=== PATIENT | male | born 1955 | race Caucasian/White ===

== ENCOUNTER → 2018-10-05 08:18 | Outpatient (CLI) | payer MEDICARE, SELFPAY ==
--- NOTE | 2018-10-05 08:30 | US_ITS ---
US aorta HISTORY: Screening for abdominal aortic aneurysm ITS.REASON: AAA COMPARISON: FINDINGS: There is no evidence of aortic aneurysm. Mid abdominal aorta measures 16 mm in AP dimension. Incidental note is made of severe left hydronephrosis. Also noted is a 4 cm cyst along the lower pole the right kidney. IMPRESSION: 1. No evidence of aortic aneurysm. 2. Severe left hydronephrosis
== END ==
PROVIDERS: PCP Emergency Medicine; Visit Provider Emergency Medicine
DX: Z13.6 Encounter for screening for cardiovascular disorders (principal); Z87.891 Personal history of nicotine dependence
CPT/HCPCS: 76770

== ENCOUNTER 2019-09-22 15:56 | Observation (INO) ==
[2019-09-22 17:48] LABS: Calcium 9.1 mg/dL (8.5-10.1); Phosphorous 3.7 mg/dL (2.4-4.9)
[2019-09-22 17:49] LABS: Anion Gap 19.4 mEq/L (5-15); Calcium 9.1 mg/dL (8.5-10.1)
[2019-09-22 17:50] LABS: Amylase 31 U/L (25-115)
[2019-09-22 17:54] LABS: Acetone, Serum (Rapid) None Detected (None Detect)
[2019-09-22 18:16] LABS: Microscopic, Urine URINE MICROSCOPIC (MICROSCOPIC)
[2019-09-22 18:19] LABS: Basophils % 0.4 % (0.1-2.0); Eosinophils # 0.1 K/mm3 (0.0-0.4); Eosinophils % 1.2 % (0.1-12.0); Hematocrit 54.1 % (42.0-52.0); Hemoglobin 17.7 g/dL (14.1-18.0); Lymphocytes # 1.9 K/mm3 (0.7-4.5); Lymphocytes % 19.4 % (10-50); Mean Corpuscular HGB Conc 32.7 g/dL (31.8-35.4); Mean Corpuscular Volume 91.4 fl (80-94); Mean Platelet Volume 8.7 fl (7.4-10.4); Monocytes # 0.5 K/mm3 (0.1-1.0); Monocytes % 5.3 % (1.7-9.3); Neutrophils # 7.2 K/mm3 (1.8-7.8); Neutrophils % 73.8 % (37.0-80.0); Platelet Count 265 K/mm3 (142-424); Red Blood Count 5.92 M/mm3 (4.60-6.20); Red Cell Distribution Width 12.5 % (11.5-17.5); White Blood Count 9.8 K/mm3 (4.8-10.8)
[2019-09-22 18:21] LABS: Appearance,Urine CLEAR (Clear); Bilirubin,Urine Negative (Negative); Blood, Urine Negative (Negative); Color,Urine YELLOW (Yellow); Glucose,Urine (UA) 3+ (Negative); Ketones,Urine 1+ (Negative); Leukocyte Esterase,Urine Negative (Negative); Protein,Urine Negative (Negative); Urobilinogen,Urine 0.2 EU/dl (0.2)
[2019-09-22 18:26] LABS: Bacteria,Urine Trace /lpf; Squamous Epithelial Cell,Urine Occasional #/hpf (0-5)
--- NOTE | 2019-09-22 20:49 | History & Physical Report ---
*Admission Date: 09/22/19 <Court Childress 09/22/19 21:01> *Chief complaint: weakness, polydipsia, loose stools <Court Childress 09/22/19 21:01> *History of present illness: Mr. Patel is a 64-year-old male with a history of hypertension, hyperlipidemia, type 2 diabetes, depression, and kidney stones. He states he was started on metformin in the past but stopped it due to loose stools with mucus present. Over the past few months, he has been very fatigued. He states his legs have felt weak almost to the point of collapse. He has lost weight and has had dry mouth and polydipsia. He states even after stopping the metformin, he continued with loose stools with a large amount of mucus. He did have some bleeding after wiping excessively. Over the past week he has also had blurry vision off and on. He was seen in the office of [facility] to be evaluated. His heart rate was 118, he was hypotensive, and his blood sugar would not even read on the glucometer. His A1c was checked and was 12.2. He was admitted for further evaluation and treatment. <Court Childress 09/22/19 21:01> [facility] History I have reviewed the patient's past medical history: Yes <Court Childress 09/22/19 21:> Medical History: Reports:: Depression, Diabetes Mellitus Type 2, Hyperlipidemia, Hypertension, Kidney Stones <Court Childress 09/22/19 21:> *Have you ever received a pneumonia vaccine?: No <Court Childress 09/22/19 21:01> *Have you received a flu vaccine this season?: No <Court Childress 09/22/19 21:01> Other Medical History: Reports: Anemia, Glaucoma <Court Childress 09/22/19 21:01> Comment:: head injury <Court Childress 09/22/19 21:01> Other Surgeries: Yes: Appendectomy, Hernia Repair, Other (Back surgery, left 5th digit stitched back together) <Court Childress 09/22/19 21:01> - *Social History Smoking Status: Former smoker <Court Childress 09/22/19 21:01> Alcohol Intake: never <Court Childress 09/22/19 21:01> *Occupational Status:: disabled <Court Childress 09/22/19 21:01> Housing: house <Court Childress 09/22/19 21:01> Household Members: spouse <Court Childress 09/22/19 21:01> *Travel in the last 8 weeks: None <Court Childress 09/22/19 21:01> Family Hx:: Cancer, Coronary Artery Disease, Heart Attack, Hypertension <Court Childress 09/22/19 21:01> Review of Systems - Constitutional Reports body ache(s), Reports weakness <Court Childress 09/22/19 21:01> - Eyes Reports blurry vision, Denies double vision <Court Childress 09/22/19 21:> - ENT Reports dry mouth, Denies nasal congestion, Denies sore throat <Court Childress 09/22/19 21:01> - *Cardiovascular Denies chest pain, Denies leg swelling, Denies rapid, pounding, or irregular heartbeat <Court Childress 09/22/19 21:01> - *Respiratory Reports cough, Reports shortness of breath <Court Childress 09/22/19 21:01> - *Gastrointestinal Reports loose stools, Denies abdominal pain, Denies nausea, Denies vomiting <Court Childress 09/22/19 21:01> - *Genitourinary Reports urinary frequency <Court Childress 09/22/19 21:01> - *Musculoskeletal Reports muscle cramps, Reports body aches, Denies joint pain <Corut Childress 09/22/19 21:01> - *Neurologic Reports headache(s), Reports tingling/numbness/burning sensations, Reports dizziness, Reports weakness <Court Childress 09/22/19 21:01> - Endocrine Reports increased thirst, Reports increased urination <Court Childress 09/22/19 21:> Meds Home Medications Medication Instructions Recorded Confirmed Type Amlodipine Besylate 1 tab PO DAILY 09/22/19 09/22/19 History Atorvastatin Calcium [Atorvastatin 1 tab PO DAILY 09/22/19 09/22/19 History 20mg Tab] Dorzolamide HCl/Timolol Maleat 1 drp EYE-BOTH DAILY 09/22/19 09/22/19 History [Dorzolamide-Timolol Eye Drops] Losartan Potassium 1 tab PO DAILY 09/22/19 09/22/19 History Metoprolol Succinate 200 mg PO DAILY 09/22/19 09/22/19 History Naproxen [Naprosyn 500mg tablet] 1 tab PO DAILY 09/22/19 09/22/19 History Tamsulosin HCl 1 tab PO DAILY 09/22/19 09/22/19 History Vilazodone HCl [Viibryd 20mg 1 tab PO DAILY 09/22/19 09/22/19 History Tablet] buPROPion HCL [Wellbutrin SR 150mg 1 tab PO DAILY 09/22/19 09/22/19 History Tablet] hydroCHLOROthiazide 1 tab PO DAILY 09/22/19 09/22/19 History [Hydrochlorothiazide] <Cecilio Art - 09/22/19 22:29> Allergies Allergy/AdvReac Type Severity Reaction Status Date / Time No Known Allergies Allergy Verified 09/22/19 16:25 <Cecilio Art - 09/22/19 22:29> Exam Vital signs and Labs for Last 24 Hours: Temp Pulse Resp BP Pulse Ox 97.6 F 97 H 17 147/93 H 94 L 09/22/19 16:22 09/22/19 22:00 09/22/19 20:00 09/22/19 22:00 09/22/19 22:00 Laboratory Results - last 24 hr 09/22/19 17:12: Random Glucose 734 H* 09/22/19 17:13: Amylase 31, Lipase 205, Acetone Level None detected 09/22/19 17:13: Calcium 9.1, Phosphorus 3.7, Magnesium 2.2 09/22/19 17:13: Sodium 126 L, Potassium 4.4, Chloride 89 L, Carbon Dioxide 22, Anion Gap 19.4 H, BUN 27 H, Creatinine 1.77 H, Estimated Creat Clear 56, Estimated GFR 39 L, Est GFR ( Amer) 47 L, Glucose 734 H*, Calcium 9.1 09/22/19 18:06: WBC 9.8, RBC 5.92, Hgb 17.7, Hct 54.1 H, MCV 91.4, MCH 29.9, MCHC 32.7, RDW 12.5, Plt Count 265, MPV 8.7, Neut % (Auto) 73.8, Lymph % (Auto) 19.4, [place] % (Auto) 5.3, Eos % (Auto) 1.2, Baso % (Auto) 0.4, Neut # (Auto) 7.2, Lymph # (Auto) 1.9, [place] # (Auto) 0.5, Eos # (Auto) 0.1, Baso # (Auto) 0.0 09/22/19 18:06: Lactate 2.2 H 09/22/19 18:12: Urine Color Yellow, Urine Appearance Clear, Urine pH 5.0, Ur Specific [place] 1.010, Urine Protein Negative, Urine Glucose (UA) 3+, Urine Ketones 1+, Urine Blood Negative, Urine Nitrate Negative, Urine Bilirubin Negative, Urine Urobilinogen 0.2, Ur Leukocyte Esterase Negative, Urine WBC 5- 10, Ur Squamous Epith Cells Occasional, Urine Bacteria Trace 09/22/19 19:53: POC Glucose 596 H* 09/22/19 19:56: Sodium 128 L, Potassium 4.1, Chloride 94 L, Carbon Dioxide 19 L, Anion Gap 19.1 H, BUN 26 H, Creatinine 1.66 H, Estimated Creat Clear 59, Estimated GFR 42 L, Est GFR ( Amer) 51 L, Glucose 621 H*, Calcium 7.9 L D 09/22/19 19:56: Random Glucose 627 H* 09/22/19 21:48: POC Glucose 452 H* <Cecilio Art - 09/22/19 22:29> Temp Pulse Resp BP Pulse Ox 97.6 F 108 H 17 144/78 H 95 09/22/19 16:22 09/22/19 20:00 09/22/19 20:00 09/22/19 20:00 09/22/19 20:00 Laboratory Results - last 24 hr 09/22/19 17:12: Random Glucose 734 H* 09/22/19 17:13: Amylase 31, Lipase 205, Acetone Level None detected 09/22/19 17:13: Calcium 9.1, Phosphorus 3.7, Magnesium 2.2 09/22/19 17:13: Sodium 126 L, Potassium 4.4, Chloride 89 L, Carbon Dioxide 22, Anion Gap 19.4 H, BUN 27 H, Creatinine 1.77 H, Estimated Creat Clear 56, Estimated GFR 39 L, Est GFR ( Amer) 47 L, Glucose 734 H*, Calcium 9.1 09/22/19 18:06: WBC 9.8, RBC 5.92, Hgb 17.7, Hct 54.1 H, MCV 91.4, MCH 29.9, MCHC 32.7, RDW 12.5, Plt Count 265, MPV 8.7, Neut % (Auto) 73.8, Lymph % (Auto) 19.4, [place] % (Auto) 5.3, Eos % (Auto) 1.2, Baso % (Auto) 0.4, Neut # (Auto) 7.2, Lymph # (Auto) 1.9, [place] # (Auto) 0.5, Eos # (Auto) 0.1, Baso # (Auto) 0.0 09/22/19 18:06: Lactate 2.2 H 09/22/19 18:12: Urine Color Yellow, Urine Appearance Clear, Urine pH 5.0, Ur Specific [place] 1.010, Urine Protein Negative, Urine Glucose (UA) 3+, Urine Ketones 1+, Urine Blood Negative, Urine Nitrate Negative, Urine Bilirubin Negative, Urine Urobilinogen 0.2, Ur Leukocyte Esterase Negative, Urine WBC 5- 10, Ur Squamous Epith Cells Occasional, Urine Bacteria Trace 09/22/19 19:56: Random Glucose 627 H* <Court Childress - 09/22/19 21:01> I & O for Last 24 hours: Intake & Output 09/20/19 09/21/19 09/22/19 09/23/19 11:59 11:59 11:59 11:59 Output Total 280 / 280 Balance -280 / -280 Weight 200 lb 6 oz <Cecilio Art - 09/22/19 22:29> Intake & Output 09/20/19 09/21/19 09/22/19 09/23/19 11:59 11:59 11:59 11:59 Output Total 280 / 280 Balance -280 / -280 Weight 200 lb 6 oz <Court Childress - 09/22/19 21:01> - Constitutional no acute distress [facility]> - *Routine HEENT Exam Head: [facility]: [facility]ic [facility]> Eye: Present: EOMI, PERRL [facility]> ENT: Present: mucous membranes dry <[facility] 09/22/19 21:> - *Routine Neck Exam Present: supple. Absent: lymphadenopathy <[facility] 09/22/19 21:> - *Routine Respiratory Exam Present: CTA bilaterally <[facility] 09/22/19 21:> - *Routine Cardiovascular Exam Present: RRR, tachycardia <[facility] 09/22/19 21:> - *Routine Abdominal Exam Present: soft, normoactive bowel sounds. Absent: tenderness <[facility] 09/22/19 21:> - *Routine Extremities Exam Absent: cyanosis, clubbing, edema <[facility] 09/22/19 21:> - *Routine Skin Exam Present: warm. Absent: rash <[facility] 09/22/19 21:> - *Routine Neurological Exam Present: alert, oriented X3 <[facility] 09/22/19 21:01> H&P: Result - Impressions CXR - nothing acute <[facility] 09/22/19 21:> Assessment and Plan (1) Hyperglycemia Current visit: Yes Status: Acute Category: Medical Code(s): R73.9 - Hyperglycemia, unspecified (2) Renal insufficiency Current visit: Yes Status: Acute Category: Medical Code(s): N28.9 - Disorder of kidney and ureter, unspecified (3) Hyponatremia Current visit: Yes Status: Acute Category: Medical Code(s): E87.1 - Hypo- osmolality and hyponatremia (4) Elevated lactic acid level Current visit: Yes Status: Acute Category: Medical Code(s): R79.89 - Other specified abnormal findings of blood chemistry (5) Weakness Current visit: Yes Status: Acute Category: Medical Code(s): R53.1 - Weakness (6) Dehydration Current visit: Yes Status: Acute Category: Medical Code(s): E86.0 - Dehydration (7) Hypotension Current visit: Yes Status: Acute Category: Medical Code(s): I95.9 - Hypotension, unspecified (8) Hypovolemia Current visit: Yes Status: Acute Category: Medical Code(s): E86.1 - Hypovolemia (9) Type 2 diabetes mellitus Current visit: Yes Status: Chronic Category: Medical Code(s): E11.9 - Type 2 diabetes mellitus without complications (10) Depression Current visit: Yes Status: Chronic Category: Medical Code(s): F32.9 - Major depressive disorder, single episode, unspecified (11) Hyperlipidemia Current visit: Yes Status: Chronic Category: Medical Code(s): E78.5 - Hyperlipidemia, unspecified (12) Hypertension Current visit: Yes Status: Chronic Category: Medical Code(s): I10 - Essential (primary) hypertension <Court Childress - 09/22/19 20:45> (1) Hyperosmolar hyperglycemic coma due to diabetes mellitus without ketoacidosis Current visit: Yes Status: Acute Category: Medical Code(s): E11.01 - Type 2 diabetes mellitus with hyperosmolarity with coma (2) Type 2 diabetes mellitus Current visit: Yes Status: Chronic Category: Medical Code(s): E11.9 - Type 2 diabetes mellitus without complications (3) Hypovolemia Current visit: Yes Status: Acute Category: Medical Code(s): E86.1 - Hypovolemia (4) Hypotension Current visit: Yes Status: Acute Category: Medical Code(s): I95.9 - Hypotension, unspecified (5) Hyperglycemia Current visit: Yes Status: Acute Category: Medical Code(s): R73.9 - Hyperglycemia, unspecified (6) Hyponatremia Current visit: Yes Status: Acute Category: Medical Code(s): E87.1 - Hypo- osmolality and hyponatremia (7) Acute renal insufficiency Current visit: Yes Status: Acute Category: Medical Code(s): N28.9 - Disorder of kidney and ureter, unspecified (8) Dehydration Current visit: Yes Status: Acute Category: Medical Code(s): E86.0 - Dehydration (9) Elevated lactic acid level Current visit: Yes Status: Acute Category: Medical Code(s): R79.89 - Other specified abnormal findings of blood chemistry (10) Depression Current visit: Yes Status: Chronic Category: Medical Code(s): F32.9 - Major depressive disorder, single episode, unspecified (11) Hyperlipidemia Current visit: Yes Status: Chronic Category: Medical Code(s): E78.5 - Hyperlipidemia, unspecified (12) Hypertension Current visit: Yes Status: Chronic Category: Medical Code(s): I10 - Essential (primary) hypertension <KaelynCecilio Hayes - 09/22/19 22:29> - Assessment and plan all Dx Assessment and Plan for all problems:: Patient seen and examined in the office and after arrival to the floor. He will require fluid resuscitation and insulin drip for management of his hyperosmolar hyperglycemic state. Acetone is negative and he is not acidotic. His sodium is factitiously low. Anticipate his potassium may drop with hydration. Will monitor renal function and electrolytes closely. <Cecilio Art - 09/22/19 22:29> Patient has been started on an insulin drip and IVF's. Will recheck labs tomorrow. <Court Childress - 09/22/19 21:01>
[2019-09-22 20:55] LABS: Anion Gap 19.1 mEq/L (5-15)
[2019-09-22 21:00] LABS: Calcium 7.9 mg/dL (8.5-10.1)
[2019-09-23 01:43] LABS: Anion Gap 13.1 mEq/L (5-15); Calcium 7.7 mg/dL (8.5-10.1)
[2019-09-23 06:32] LABS: Anion Gap 14.8 mEq/L (5-15); Calcium 7.7 mg/dL (8.5-10.1)
--- NOTE | 2019-09-23 07:55 | Pharmacy Consult Notes ---
[facility] Pharmacy VTE Monitoring - Patient Demographics Admission date: 09/23/19 Report Date: 09/23/19 Time: 07:55 Allergies/Adverse Reactions: Patient Allergies No Known Allergies Allergy (Verified 09/22/19 16:25) Height: 1.65 m Weight: 94.347 kg Patient Problems: Current Active Problems Hyperglycemia (Acute) Renal insufficiency (Acute) Hyponatremia (Acute) Elevated lactic acid level (Acute) Type 2 diabetes mellitus (Chronic) Hypertension (Chronic) Hyperlipidemia (Chronic) Depression (Chronic) Weakness (Acute) Dehydration (Acute) Hypotension (Acute) Hypovolemia (Acute) Hyperosmolar hyperglycemic coma due to diabetes mellitus without ketoacidosis (Acute) Acute renal insufficiency (Acute) - VTE Risk Labs: VTE Related Lab Results Hgb 17.7 g/dL (14.1-18.0) 09/22/19 18:06 Hct 54.1 % (42.0-52.0) H 09/22/19 18:06 Plt Count 265 K/mm3 (142-424) 09/22/19 18:06 BUN 19 mg/dL (7-18) H 09/23/19 06:10 Creatinine 1.10 mg/dL (0.70-1.30) 09/23/19 06:10 Estimated Creat Clear 93 mL/min (50-200) 09/23/19 06:10 Was VTE Risk Assessment Performed: Yes VTE Score: 1 VTE Risk Level: Very Low Risk Clinical Trial Participant: No - Prophylaxis VTE Prophylaxis Ordered?: Yes Types of VTE Prophylaxis: TEDS Knee High
--- NOTE | 2019-09-23 08:35 | Progress Note ---
<Court Childress - Last Filed: 09/23/19 08:33> Internal Medicine - PN: Subj *Date: 09/23/19 *Time: 08:33 Interval history: Pt is feeling better this am. He did stay awake all night urinating. His glucose has improved. He denies any pain other than in his feet. Exam Vital signs and Labs for Last 24 Hours: Temp Pulse Resp BP Pulse Ox 98.1 F 106 H 18 151/74 H 96 09/23/19 07:50 09/23/19 08:00 09/23/19 07:50 09/23/19 07:50 09/23/19 07:50 Laboratory Results - last 24 hr 09/22/19 17:12: Random Glucose 734 H* 09/22/19 17:13: Amylase 31, Lipase 205, Acetone Level None detected 09/22/19 17:13: Calcium 9.1, Phosphorus 3.7, Magnesium 2.2 09/22/19 17:13: Sodium 126 L, Potassium 4.4, Chloride 89 L, Carbon Dioxide 22, Anion Gap 19.4 H, BUN 27 H, Creatinine 1.77 H, Estimated Creat Clear 56, Estimated GFR 39 L, Est GFR ( Amer) 47 L, Glucose 734 H*, Calcium 9.1 09/22/19 18:06: WBC 9.8, RBC 5.92, Hgb 17.7, Hct 54.1 H, MCV 91.4, MCH 29.9, MCHC 32.7, RDW 12.5, Plt Count 265, MPV 8.7, Neut % (Auto) 73.8, Lymph % (Auto) 19.4, Vance % (Auto) 5.3, Eos % (Auto) 1.2, Baso % (Auto) 0.4, Neut # (Auto) 7.2, Lymph # (Auto) 1.9, Vance # (Auto) 0.5, Eos # (Auto) 0.1, Baso # (Auto) 0.0 09/22/19 18:06: Lactate 2.2 H 09/22/19 18:12: Urine Color Yellow, Urine Appearance Clear, Urine pH 5.0, Ur Specific [place] 1.010, Urine Protein Negative, Urine Glucose (UA) 3+, Urine Ketones 1+, Urine Blood Negative, Urine Nitrate Negative, Urine Bilirubin Negative, Urine Urobilinogen 0.2, Ur Leukocyte Esterase Negative, Urine WBC 5- 10, Ur Squamous Epith Cells Occasional, Urine Bacteria Trace 09/22/19 19:53: POC Glucose 596 H* 09/22/19 19:56: Sodium 128 L, Potassium 4.1, Chloride 94 L, Carbon Dioxide 19 L, Anion Gap 19.1 H, BUN 26 H, Creatinine 1.66 H, Estimated Creat Clear 59, Estimated GFR 42 L, Est GFR ( Amer) 51 L, Glucose 621 H*, Calcium 7.9 L D 09/22/19 19:56: Random Glucose 627 H* 09/22/19 21:48: POC Glucose 452 H* 09/22/19 22:24: Lactate 1.6 09/22/19 23:57: POC Glucose 301 H* 09/23/19 01:25: Sodium 136, Potassium 3.1 L D, Chloride 102, Carbon Dioxide 24 D, Anion Gap 13.1, BUN 20 H, Creatinine 1.33 H, Estimated Creat Clear 74, Estimated GFR 54 L, Est GFR ( Amer) 66 D, Glucose 226 H D, Calcium 7.7 L 09/23/19 02:18: POC Glucose 136 H 09/23/19 05:40: POC Glucose 212 H 09/23/19 06:10: Sodium 137, Potassium 3.8 D, Chloride 103, Carbon Dioxide 23, Anion Gap 14.8, BUN 19 H, Creatinine 1.10, Estimated Creat Clear 93, Estimated GFR 68, Est GFR ( Amer) 82 D, Glucose 236 H, Calcium 7.7 L I & O for Last 24 hours: Intake & Output 09/20/19 09/21/19 09/22/19 09/23/19 11:59 11:59 11:59 11:59 Intake Total 3362 / 3362 Output Total 1060 / 1060 Balance 2302 / 2302 Weight 208 lb - Constitutional no acute distress - *Routine Respiratory Exam Present: CTA bilaterally - *Routine Cardiovascular Exam Present: RRR - *Routine Abdominal Exam Present: soft, normoactive bowel sounds. Absent: tenderness - *Routine Extremities Exam Absent: cyanosis, clubbing, edema - *Routine Skin Exam Present: warm. Absent: rash - *Routine Neurological Exam Present: alert, oriented X3 Assessment and Plan (1) Hyperosmolar hyperglycemic coma due to diabetes mellitus without ketoacidosi s Current visit: Yes Status: Acute Category: Medical Code(s): E11.01 - Type 2 diabetes mellitus with hyperosmolarity with coma (2) Type 2 diabetes mellitus Current visit: Yes Status: Chronic Category: Medical Code(s): E11.9 - Type 2 diabetes mellitus without complications (3) Hypovolemia Current visit: Yes Status: Acute Category: Medical Code(s): E86.1 - Hypovolemia (4) Hypotension Current visit: Yes Status: Acute Category: Medical Code(s): I95.9 - Hypotension, unspecified (5) Hyperglycemia Current visit: Yes Status: Acute Category: Medical Code(s): R73.9 - Hyperglycemia, unspecified (6) Hyponatremia Current visit: Yes Status: Acute Category: Medical Code(s): E87.1 - Hypo- osmolality and hyponatremia (7) Acute renal insufficiency Current visit: Yes Status: Acute Category: Medical Code(s): N28.9 - Disorder of kidney and ureter, unspecified (8) Dehydration Current visit: Yes Status: Acute Category: Medical Code(s): E86.0 - Dehydration (9) Elevated lactic acid level Current visit: Yes Status: Acute Category: Medical Code(s): R79.89 - Other specified abnormal findings of blood chemistry (10) Depression Current visit: Yes Status: Chronic Category: Medical Code(s): F32.9 - Ma corazon depressive disorder, single episode, unspecified (11) Hyperlipidemia Current visit: Yes Status: Chronic Category: Medical Code(s): E78.5 - Hyperlipidemia, unspecified (12) Hypertension Current visit: Yes Status: Chronic Category: Medical Code(s): I10 - Essential (primary) hypertension - Assessment and plan all Dx Assessment and Plan for all problems:: The patient's glucose has improved. He can likely come out of step down today. Will discuss further care with Dr. Art. <Cecilio Art - Last Filed: 09/23/19 17:25> Internal Medicine - PN: Subj *Date: 09/23/19 *Time: 17:24 Exam Vital signs and Labs for Last 24 Hours: Temp Pulse Resp BP Pulse Ox 98.1 F 73 20 108/67 L 96 09/23/19 16:00 09/23/19 16:00 09/23/19 16:00 09/23/19 16:00 09/23/19 16:00 Laboratory Results - last 24 hr 09/22/19 17:12: Random Glucose 734 H* 09/22/19 17:13: Amylase 31, Lipase 205, Acetone Level None detected 09/22/19 17:13: Calcium 9.1, Phosphorus 3.7, Magnesium 2.2 09/22/19 17:13: Sodium 126 L, Potassium 4.4, Chloride 89 L, Carbon Dioxide 22, Anion Gap 19.4 H, BUN 27 H, Creatinine 1.77 H, Estimated Creat Clear 56, Estimated GFR 39 L, Est GFR ( Amer) 47 L, Glucose 734 H*, Calcium 9.1 09/22/19 17:54: POC Glucose > 600 H* 09/22/19 18:06: WBC 9.8, RBC 5.92, Hgb 17.7, Hct 54.1 H, MCV 91.4, MCH 29.9, MCHC 32.7, RDW 12.5, Plt Count 265, MPV 8.7, Neut % (Auto) 73.8, Lymph % (Auto) 19.4, Vance % (Auto) 5.3, Eos % (Auto) 1.2, Baso % (Auto) 0.4, Neut # (Auto) 7.2, Lymph # (Auto) 1.9, Vance # (Auto) 0.5, Eos # (Auto) 0.1, Baso # (Auto) 0.0 09/22/19 18:06: Lactate 2.2 H 09/22/19 18:12: Urine Color Yellow, Urine Appearance Clear, Urine pH 5.0, Ur Specific [place] 1.010, Urine Protein Negative, Urine Glucose (UA) 3+, Urine Ketones 1+, Urine Blood Negative, Urine Nitrate Negative, Urine Bilirubin Negative, Urine Urobilinogen 0.2, Ur Leukocyte Esterase Negative, Urine WBC 5- 10, Ur Squamous Epith Cells Occasional, Urine Bacteria Trace 09/22/19 19:53: POC Glucose 596 H* 09/22/19 19:56: Sodium 128 L, Potassium 4.1, Chloride 94 L, Carbon Dioxide 19 L, Anion Gap 19.1 H, BUN 26 H, Creatinine 1.66 H, Estimated Creat Clear 59, Estimated GFR 42 L, Est GFR ( Amer) 51 L, Glucose 621 H*, Calcium 7.9 L D 09/22/19 19:56: Random Glucose 627 H* 09/22/19 21:48: POC Glucose 452 H* 09/22/19 22:24: Lactate 1.6 09/22/19 23:57: POC Glucose 301 H* 09/23/19 01:25: Sodium 136, Potassium 3.1 L D, Chloride 102, Carbon Dioxide 24 D, Anion Gap 13.1, BUN 20 H, Creatinine 1.33 H, Estimated Creat Clear 74, Estimated GFR 54 L, Est GFR ( Amer) 66 D, Glucose 226 H D, Calcium 7.7 L 09/23/19 02:18: POC Glucose 136 H 09/23/19 05:40: POC Glucose 212 H 09/23/19 06:10: Sodium 137, Potassium 3.8 D, Chloride 103, Carbon Dioxide 23, Anion Gap 14.8, BUN 19 H, Creatinine 1.10, Estimated Creat Clear 93, Estimated GFR 68, Est GFR ( Amer) 82 D, Glucose 236 H, Calcium 7.7 L 09/23/19 12:14: POC Glucose 283 H 09/23/19 12:35: Sodium 135 L, Potassium 4.4, Chloride 102, Carbon Dioxide 21, Anion Gap 16.4 H, BUN 16, Creatinine 1.16, Estimated Creat Clear 88, Estimated GFR 64, Est GFR ( Amer) 77, Glucose 312 H D, Calcium 7.8 L 09/23/19 16:14: POC Glucose 409 H* I & O for Last 24 hours: Intake & Output 09/21/19 09/22/19 09/23/19 09/24/19 11:59 11:59 11:59 11:59 Intake Total 3842 / 3842 360 / 360 Output Total 1310 / 1310 200 / 200 Balance 2532 / 2532 160 / 160 Weight 208 lb 205 lb 8 oz Assessment and Plan (1) Hyperosmolar hyperglycemic coma due to diabetes mellitus without ketoacidosis Current visit: Yes Status: Acute Category: Medical Code(s): E11.01 - Type 2 diabetes mellitus with hyperosmolarity with coma (2) Type 2 diabetes mellitus Current visit: Yes Status: Chronic Category: Medical Code(s): E11.9 - Type 2 diabetes mellitus without complications (3) Hypovolemia Current visit: Yes Status: Acute Category: Medical Code(s): E86.1 - Hypovolemia (4) Hypotension Current visit: Yes Status: Acute Category: Medical Code(s): I95.9 - Hypotension, unspecified (5) Hyperglycemia Current visit: Yes Status: Acute Category: Medical Code(s): R73.9 - Hyperglycemia, unspecified (6) Hyponatremia Current visit: Yes Status: Acute Category: Medical Code(s): E87.1 - Hypo- osmolality and hyponatremia (7) Acute renal insufficiency Current visit: Yes Status: Acute Category: Medical Code(s): N28.9 - Disorder of kidney and ureter, unspecified (8) Dehydration Current visit: Yes Status: Acute Category: Medical Code(s): E86.0 - Dehydration (9) Elevated lactic acid level Current visit: Yes Status: Acute Category: Medical Code(s): R79.89 - Other specified abnormal findings of blood chemistry (10) Depression Current visit: Yes Status: Chronic Category: Medical Code(s): F32.9 - Major depressive disorder, single episode, unspecified (11) Hyperlipidemia Current visit: Yes Status: Chronic Category: Medical Code(s): E78.5 - Hyperlipidemia, unspecified (12) Hypertension Current visit: Yes Status: Chronic Category: Medical Code(s): I10 - Essential (primary) hypertension - Assessment and plan all Dx Assessment and Plan for all problems:: Patient seen and examined. Did not get much sleep due to multiple blood draws through the night. His blood sugar has improved with the insulin drip which is now been discontinued. He is on sliding scale insulin. We will add an oral agent today. Electrolytes have also improved. We will continue to monitor his sugar through the day. If they remain controlled, possibly discharge later today.
[2019-09-23 12:59] LABS: Anion Gap 16.4 mEq/L (5-15); Calcium 7.8 mg/dL (8.5-10.1)
[2019-09-23 18:57] LABS: Anion Gap 15.2 mEq/L (5-15); Calcium 7.9 mg/dL (8.5-10.1)
[2019-09-24 07:33] LABS: Anion Gap 10.4 mEq/L (5-15); Calcium 7.9 mg/dL (8.5-10.1)
--- NOTE | 2019-09-24 09:36 | Progress Note ---
Internal Medicine - PN: Subj *Date: 09/24/19 *Time: 09:51 Interval history: He rested better last night and feels good this morning. Blood sugars have improved with addition of Lantus Exam Vital signs and Labs for Last 24 Hours: Temp Pulse Resp BP Pulse Ox 97.7 F 78 16 116/65 97 09/24/19 08:00 09/24/19 08:00 09/24/19 08:00 09/24/19 08:00 09/24/19 08:00 Laboratory Results - last 24 hr 09/22/19 17:54: POC Glucose > 600 H* 09/23/19 12:14: POC Glucose 283 H 09/23/19 12:35: Sodium 135 L, Potassium 4.4, Chloride 102, Carbon Dioxide 21, Anion Gap 16.4 H, BUN 16, Creatinine 1.16, Estimated Creat Clear 88, Estimated GFR 64, Est GFR ( Amer) 77, Glucose 312 H D, Calcium 7.8 L 09/23/19 16:14: POC Glucose 409 H* 09/23/19 18:43: Sodium 140, Potassium 4.2, Chloride 107, Carbon Dioxide 22, Anion Gap 15.2 H, BUN 17, Creatinine 1.30, Estimated Creat Clear 78, Estimated GFR 56 L, Est GFR ( Amer) 68, Glucose 125 H D, Calcium 7.9 L 09/23/19 20:37: POC Glucose 190 H 09/24/19 06:00: POC Glucose 198 H 09/24/19 07:16: Sodium 138, Potassium 4.4, Chloride 107, Carbon Dioxide 25, Anion Gap 10.4, BUN 13, Creatinine 1.13, Estimated Creat Clear 83, Estimated GFR 66, Est GFR ( Amer) 80, Glucose 217 H D, Calcium 7.9 L I & O for Last 24 hours: Intake & Output 09/21/19 09/22/19 09/23/19 09/24/19 11:59 11:59 11:59 11:59 Intake Total 3842 / 3842 2364 / 2364 Output Total 1310 / 1310 200 / 200 Balance 2532 / 2532 2164 / 2164 Weight 208 lb 191 lb 2.993 oz Microbiology Reports for the Last 24 Hours: Microbiology 09/22/19 18:12 Urine,Clean Catch Urine Culture - Preliminary Narrative: Alert and oriented. No distress. Color is normal. Lungs are clear. Heart is regular with no ectopy. Extremities no edema. Assessment and Plan (1) Hyperosmolar hyperglycemic coma due to diabetes mellitus without ketoacidosis Current visit: Yes Status: Acute Category: Medical Code(s): E11.01 - Type 2 diabetes mellitus with hyperosmolarity with coma (2) Type 2 diabetes mellitus Current visit: Yes Status: Chronic Category: Medical Code(s): E11.9 - Type 2 diabetes mellitus without complications (3) Hypovolemia Current visit: Yes Status: Acute Category: Medical Code(s): E86.1 - Hypovolemia (4) Hypotension Current visit: Yes Status: Acute Category: Medical Code(s): I95.9 - Hypotension, unspecified (5) Hyperglycemia Current visit: Yes Status: Acute Category: Medical Code(s): R73.9 - H yperglycemia, unspecified (6) Hyponatremia Current visit: Yes Status: Acute Category: Medical Code(s): E87.1 - Hypo- osmolality and hyponatremia (7) Acute renal insufficiency Current visit: Yes Status: Acute Category: Medical Code(s): N28.9 - Disorder of kidney and ureter, unspecified (8) Dehydration Current visit: Yes Status: Acute Category: Medical Code(s): E86.0 - Dehydration (9) Elevated lactic acid level Current visit: Yes Status: Acute Category: Medical Code(s): R79.89 - Other specified abnormal findings of blood chemistry (10) Depression Current visit: Yes Status: Chronic Category: Medical Code(s): F32.9 - Major depressive disorder, single episode, unspecified (11) Hyperlipidemia Current visit: Yes Status: Chronic Category: Medical Code(s): E78.5 - Hyperlipidemia, unspecified (12) Hypertension Current visit: Yes Status: Chronic Category: Medical Code(s): I10 - Essential (primary) hypertension - Assessment and plan all Dx Assessment and Plan for all problems:: He is stable for discharge. He has met with a dietitian and feels comfortable with knowing what to eat. He is given an order for a home glucometer and will test his blood sugar 2-3 times a day. Follow-up for recheck in 1 week.
--- NOTE | 2019-09-24 19:09 | Electrocardiograph Report ---
APPROVED REPORT Exam: Resting ECG HR:104 bpm ECG Measurements Heart Rate 104 AXES UT 160 P 29 QRSd 82 QRS -11 QT 384 T60 QTc 504 <Conclusion> Sinus tachycardia Nonsignificant q wave in III, AVF Late r wave progression Abnormal ECG Electronically signed by : Momo Saeed, 09/24/2019 19:09:03
--- NOTE | 2019-09-26 14:38 | Discharge Summary ---
General - General Admission date:: 09/22/19 <Cecilio Art - 10/02/19 08:37> 09/22/19 <MonroeCourt - 09/26/19 14:38> Discharge date: 09/24/19 <MattAndrzej jamesa - 09/26/19 14:38> HPI HPI: Mr. Patel is a 64-year-old male with a history of hypertension, hyperlipidemia, type 2 diabetes, depression, and kidney stones. He stated he was started on metformin in the past but stopped it due to loose stools with mucus present. Over the past few months, he has been very fatigued. He stated his legs have felt weak almost to the point of collapse. He had lost weight and had had dry mouth and polydipsia. He stated even after stopping the metformin, he continued with loose stools with a large amount of mucus. He did have some bleeding after wiping excessively. The week prior to admission he had also had blurry vision off and on. He was seen in the office of [facility] to be evaluated. His heart rate was 118, he was hypotensive, and his blood sugar would not even read on the glucometer. His A1c was checked and was 12.2. He was admitted for further evaluation and treatment. <MonroeCourt - 09/26/19 14:38> Hospital Course Hospital Course: The patient's initial chest x-ray showed nothing acute. He was started on insulin drip and IV fluids. His acetone was negative and he was not acidotic. His sodium was low. After one day on an insulin drip, his glucose had improved. He was removed from stepdown and the insulin drip was discontinued. He was started on sliding scale insulin and januvia. His electrolytes improved as well. His blood sugars did trend upward despite his sliding scale, therefore he was kept another night for monitoring and basal insulin was added. His blood sugars improved with the addition of Lantus and he was able to meet with a dietitian and felt comfortable knowing what to eat with his diabetes. He was given an order for home glucometer and will check his blood sugar 2-3 times a day. He will follow-up in the office in 1 week. <Court Childress - 09/26/19 14:38> Objective Vital signs: Temp Pulse Resp BP Pulse Ox 97.6 F 64 18 118/70 97 09/24/19 12:00 09/24/19 12:00 09/24/19 12:00 09/24/19 12:00 09/24/19 12:00 <Cecilio Art - 10/02/19 08:37> Temp Pulse Resp BP Pulse Ox 97.6 F 64 18 118/70 97 09/24/19 12:00 09/24/19 12:00 09/24/19 12:00 09/24/19 12:00 09/24/19 12:00 <Court Childress - 09/26/19 14:38> Narrative: Alert and oriented. No distress. Color is normal. Lungs are clear. Heart is regular with no ectopy. Extremities no edema. <Court Childress 09/26/19 14:38> Results Labs on day of discharge: Preliminary micro results at discharge 09/22/19 19:56 Blood Culture - Preliminary Blood NO GROWTH AFTER 48 HOURS 09/22/19 18:06 Blood Culture - Preliminary Blood NO GROWTH AFTER 48 HOURS <Court Childress - 09/26/19 14:38> DS: Diagnosis - Discharge Diagnosis (1) Hyperosmolar hyperglycemic coma due to diabetes mellitus without ketoacidosis Status: Acute (2) Type 2 diabetes mellitus Status: Chronic (3) Hypovolemia Status: Acute (4) Hypotension Status: Acute (5) Hyperglycemia Status: Acute (6) Hyponatremia Status: Acute (7) Acute renal insufficiency Status: Acute (8) Dehydration Status: Acute (9) Elevated lactic acid level Status: Acute (10) Depression Status: Chronic (11) Hyperlipidemia Status: Chronic (12) Hypertension Status: Chronic <Court Childress - 09/26/19 14:34> (1) Hyperosmolar hyperglycemic coma due to diabetes mellitus without ketoacidosis Status: Acute (2) Type 2 diabetes mellitus Status: Chronic (3) Hypovolemia Status: Acute (4) Hypotension Status: Acute (5) Hyperglycemia Status: Acute (6) Hyponatremia Status: Acute (7) Acute renal insufficiency Status: Acute (8) Dehydration Status: Acute (9) Elevated lactic acid level Status: Acute (10) Depression Status: Chronic (11) Hyperlipidemia Status: Chronic (12) Hypertension Status: Chronic <Cecilio Art - 10/02/19 08:37> Discharge Plan - Patient Discharge Instructions ACTIVITY: Continue current activity <oCurt Childress - 09/26/19 14:38> DIET: diabetic diet <Court Childress - 09/26/19 14:38> Patient Instructions: Diabetes, General (Alternative Therapy), Type 2 Diabetes, Dehydration, DI for Dehydration -- Adult, DI for Hyperglycemia -- Adult <Cecilio Art - 10/02/19 08:37> Forms: <Cecilio Art - 10/02/19 08:37> - Follow up Plan Follow up with: Cecilio Art MD [Primary Care Provider] - 09/30/19 <Cecilio Art - 10/02/19 08:37> Disposition: Home, Self-Care <Cecilio Art - 10/02/19 08:37> Home Medications: Home Medications Medication Instructions Recorded Confirmed Type Amlodipine Besylate 10 mg PO DAILY 09/22/19 09/23/19 History Atorvastatin Calcium [Atorvastatin 20 mg PO DAILY 09/22/19 09/23/19 History 20mg Tab] Dorzolamide HCl/Timolol Maleat 1 drp EYE-BOTH DAILY 09/22/19 09/22/19 History [Dorzolamide-Timolol Eye Drops] Losartan Potassium 100 mg PO DAILY 09/22/19 09/23/19 History Metoprolol Succinate 100 mg PO DAILY 09/22/19 09/23/19 History Naproxen [Naprosyn 500mg tablet] 1 tab PO DAILY 09/22/19 09/22/19 History Tamsulosin HCl 0.4 mg PO DAILY 09/22/19 09/23/19 History Vilazodone HCl [Viibryd 20mg 20 mg PO DAILY 09/22/19 09/23/19 History Tablet] buPROPion HCL [Wellbutrin SR 150mg 150 tab PO BID 09/22/19 09/23/19 History Tablet] hydroCHLOROthiazide 12.5 mg PO DAILY 09/22/19 09/23/19 History [Hydrochlorothiazide] Insulin Glargine,Hum.rec.anlog 0 unit SQ DAILY #1 insuln.pen 09/24/19 Rx [Insulin Glargine 100 Units/mL 3mL flexpen] Pen Needle, Diabetic [Pen [place]] 1 each MC DAILY #100 dis.needle 09/24/19 Rx Sitagliptin Phosphate [Januvia 100 mg PO DAILY #30 tab 09/24/19 Rx 100mg tablet] <Cecilio Art - 10/02/19 08:37> Prescriptions/Medication Reconciliation: New Insulin Glargine,Hum.rec.anlog [Insulin Glargine 100 Units/mL 3mL flexpen] 0 unit SQ DAILY #1 insuln.pen Pen Needle, Diabetic [Pen [place]] 1 each MC DAILY #100 dis.needle Sitagliptin Phosphate [Januvia 100mg tablet] 100 mg PO DAILY #30 tab Continued Amlodipine Besylate 10 mg PO DAILY Dorzolamide HCl/Timolol Maleat [Dorzolamide-Timolol Eye Drops] 1 drp EYE-BOTH DAILY Metoprolol Succinate 100 mg PO DAILY Tamsulosin HCl 0.4 mg PO DAILY Naproxen [Naprosyn 500mg tablet] 1 tab PO DAILY Losartan Potassium 100 mg PO DAILY Atorvastatin Calcium [Atorvastatin 20mg Tab] 20 mg PO DAILY buPROPion HCL [Wellbutrin SR 150mg Tablet] 150 tab PO BID hydroCHLOROthiazide [Hydrochlorothiazide] 12.5 mg PO DAILY Vilazodone HCl [Viibryd 20mg Tablet] 20 mg PO DAILY <Cecilio Art - 10/02/19 08:37> - Problem Reconciliation Problems Reviewed?: Yes <Cecilio Art - 10/02/19 08:37> Yes <Court Childress - 09/26/19 14:38> - Additional Information Additional Information: Patient seen and examined. Concur with plan for discharge as outlined above. <Cecilio Art - 10/02/19 08:37>
== END 2019-09-24 13:24 | disposition home or self-care (01) ==
LOC: 2ND → ICU 23:33 → 2ND 09-23 15:25
PROVIDERS: ADMIT Family Medicine; ATTEND Family Medicine
CPT/HCPCS: 36415; 71010; 71045; 80048; 81001; 82009; 82150; 82310; 82947; 82962; 83605; 83690; 83735; 83930; 84100; 85025; 87040; 87086; 87088; 87186; 93005; G0378

== ENCOUNTER → 2020-06-05 10:57 | Outpatient (CLI) | payer MEDICARE, SELFPAY ==
--- NOTE | 2020-06-05 11:07 | XR_ITS ---
PROCEDURE: XR CERVICAL SPINE 5V CLINICAL INDICATION: DISORDER OF NECK,CERVICAL RADICULOPATHY COMPARISON: No exams were available for comparison FINDINGS: No fracture or dislocation. No lytic or blastic change. There is normal mineralization. There is degenerative disc disease at C5-C6 and C6-C7. No significant foraminal narrowing. No lytic or blastic change. IMPRESSION: Degenerative disc disease otherwise negative Dictated by: Jaime Terrell MD 06/05/2020 13:02 Jaime Terrell MD in [place] 06/05/2020 13:02
== END ==
PROVIDERS: PCP Family Medicine; Visit Provider Family Medicine
DX: M54.12 Radiculopathy, cervical region (principal); M53.82 Other specified dorsopathies, cervical region
CPT/HCPCS: 72050

== ENCOUNTER → 2021-08-12 13:42 | Outpatient (CLI) | payer MEDICARE, SELFPAY | PROVIDERS: Visit Provider Ophthalmology | DX: Z01.812 Encounter for preprocedural laboratory examination (principal); Z11.52 Encounter for screening for COVID-19 | CPT/HCPCS: C9803; U0003; U0005 ==

== ENCOUNTER 2021-08-13 08:43 | Day surgery (SDC) | payer MEDICARE, SELFPAY ==
[2021-08-09 08:58] VITALS: BMI 33.3
[2021-08-13] VITALS (7 sets, daily range): BP systolic 120–151; BP diastolic 68–83; PULSE 49–54; RESP 16–18; TEMP 36.3–36.7; O2SAT 97–99
[2022-05-29 10:55] LABS: POC Glucose,Bedside 121 (70-110)
== END 2021-08-13 11:39 | disposition home or self-care (01) ==
LOC: OR 08:45
PROVIDERS: PCP Family Medicine; Visit Provider Ophthalmology
DX: H25.811 Combined forms of age-related cataract, right eye (principal); H17.89 Other corneal scars and opacities; Z96.1 Presence of intraocular lens; E11.9 Type 2 diabetes mellitus without complications; E78.5 Hyperlipidemia, unspecified; M19.90 Unspecified osteoarthritis, unspecified site; Z90.49 Acquired absence of other specified parts of digestive tract; Z87.891 Personal history of nicotine dependence; I10 Essential (primary) hypertension; Z79.82 Long term (current) use of aspirin; Z79.4 Long term (current) use of insulin; Z79.899 Other long term (current) drug therapy
CPT/HCPCS: 66984; 82962; V2632

== ENCOUNTER → 2021-11-11 10:11 | Outpatient (CLI) | payer MEDICARE, SELFPAY ==
[2021-11-11 11:20] LABS: Hemoglobin A1C 7.1 % (4.0-6.0)
[2021-11-11 11:25] LABS: Alanine Aminotransferase 49 U/L (12-78); Albumin Level 4.1 g/dl (3.5-5.0); Albumin/Globulin Ratio 1.7 (1.1-1.8); Alkaline Phosphatase 60 U/L (38-126); Anion Gap 8.7 mEq/L (5-15); Aspartate Amino Transferase 34 U/L (17-59); Bilirubin,Total 0.5 mg/dl (0.2-1.3); Blood Urea Nitrogen 18 mg/dl (9-20); Calcium 9.6 mg/dl (8.4-10.2); Carbon Dioxide 32 mmol/L (22.0-30.0); Chloride 102 mmol/L (98-107); Chol/HDL Ratio 3.8 (1-3.5); Cholesterol 162 mg/dl (140-200); Estimated Glomerular Filt Rate 67 ml/min (>60); GFR (African American) 82 ML/MIN (>60); Globulin 2.4 g/dL (1.3-3.2); Glucose 157 mg/dl (74-100); HDL Cholesterol 43 mg/dl (40-60); Potassium 4.7 mmoL/L (3.5-5.1); Sodium 138 mmol/L (136-145); Total Protein,Serum 6.5 g/dl (6.3-8.2); Triglycerides 198 mg/dl (30-150); VLDL Cholesterol 40 mg/dL (0-40)
[2021-11-11 11:36] LABS: Direct LDL Cholesterol 83.11 mg/dL (100-129)
== END ==
PROVIDERS: Visit Provider Family Medicine
DX: I10 Essential (primary) hypertension (principal); E11.9 Type 2 diabetes mellitus without complications; E78.5 Hyperlipidemia, unspecified; F41.8 Other specified anxiety disorders; Z79.4 Long term (current) use of insulin
CPT/HCPCS: 36415; 80053; 80061; 83036

== ENCOUNTER → 2022-03-26 13:54 | Outpatient (CLI) | payer MEDICARE, SELFPAY ==
--- NOTE | 2022-03-26 13:58 | US_ITS ---
FINAL REPORT TECHNIQUE: Sonographic images of the thyroid gland were obtained in the longitudinal and transverse planes. CLINICAL HISTORY: THYROMEGALY FINDINGS: The right lobe measures 1.3 x 4.2 x 1.3 cm. The left lobe measures 0.9 x 3.1 x 0.8 cm. The isthmus measures 2 mm which is normal. The gland is homogeneous. There are no cystic or solid nodules. The surrounding soft tissues are normal. Color imaging of the gland is within normal limits. There are several benign appearing, but mildly enlarged bilateral cervical lymph nodes. IMPRESSION: Normal sonographic appearance to the thyroid gland. Mildly prominent but benign appearing cervical lymph nodes. Reviewed, Interpreted and Dictated by Rubi Brown MD Transcribed by Akiko Vital Authenticated and [facility]
== END ==
PROVIDERS: PCP Family Medicine; Visit Provider Family Medicine
DX: E04.9 Nontoxic goiter, unspecified (principal)
CPT/HCPCS: 76536

== ENCOUNTER → 2022-12-15 08:56 | Outpatient (CLI) | payer MEDICARE, SELFPAY ==
[2022-12-15 09:42] LABS: Hemoglobin A1C 7.3 % (4.0-6.0)
[2022-12-15 09:54] LABS: Chloride 103 mmol/L (98-107)
[2022-12-15 09:55] LABS: Potassium 4.3 mmoL/L (3.5-5.1); Sodium 143 mmol/L (136-145)
[2022-12-15 09:57] LABS: Alanine Aminotransferase 40 U/L (12-78); Anion Gap 13.3 mEq/L (5-15); Aspartate Amino Transferase 32 U/L (17-59); Blood Urea Nitrogen 21 mg/dl (9-20); Carbon Dioxide 31 mmol/L (22.0-30.0); Estimated Glomerular Filt Rate 61 ml/min (>60); GFR (African American) 74 ML/MIN (>60)
[2022-12-15 09:58] LABS: Albumin/Globulin Ratio 1.6 (1.1-1.8); Alkaline Phosphatase 72 U/L (38-126); Bilirubin,Total 0.5 mg/dl (0.2-1.3); Calcium 8.9 mg/dl (8.4-10.2); Chol/HDL Ratio 3.4 (1-3.5); Cholesterol 158 mg/dl (140-200); Globulin 2.5 g/dL (1.3-3.2); Glucose 145 mg/dl (74-100); HDL Cholesterol 46 mg/dl (40-60); Total Protein,Serum 6.5 g/dl (6.3-8.2); Triglycerides 196 mg/dl (30-150); VLDL Cholesterol 39 mg/dL (0-40)
[2022-12-15 10:15] LABS: Direct LDL Cholesterol 82.42 mg/dL (100-129)
== END ==
PROVIDERS: PCP Family Medicine; Visit Provider Family Medicine
DX: E11.9 Type 2 diabetes mellitus without complications (principal); I10 Essential (primary) hypertension; E78.5 Hyperlipidemia, unspecified; Z79.4 Long term (current) use of insulin
CPT/HCPCS: 36415; 80053; 80061; 83036

== ENCOUNTER 2024-01-14 16:05 | Outpatient (CLI) | payer MEDICARE, SELFPAY ==
--- NOTE | 2024-01-14 16:15 | XR_ITS ---
FINAL REPORT CLINICAL HISTORY: CERVICALGIA states neck pain that radiates up to head with headaches/ringing COMPARISON: None FINDINGS: AP, lateral and odontoid views of the cervical spine were obtained. There is no prior exam for comparison. There is no acute fracture or malalignment. There is moderate degenerative change in the lower cervical spine, with multilevel osteophytes present. Vertebral body height is preserved. The precervical soft tissues are normal. IMPRESSION: No acute bony abnormality. Moderate degenerative change of the lower cervical spine as described. Reviewed, Interpreted and Dictated by Vinod Jones III, MD Transcribed by Edith Mac Authenticated and [facility]
== END 2024-01-14 23:59 | disposition home or self-care (01) ==
LOC: RAD 16:07
PROVIDERS: PCP Family Medicine; Visit Provider Family Medicine
DX: M54.2 Cervicalgia (principal)
CPT/HCPCS: 72040

== ENCOUNTER 2025-06-16 09:25 | Outpatient (CLI) | payer MEDICARE, SELFPAY ==
--- OUTSIDE RECORDS SUMMARY | 2024-04-19 12:00 | XMS_ITS ---
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 Name Role Phone Kitty Art Primary Care Provider [phone] Allergies No Known Allergies REASON FOR VISIT 2 month f/u, Needs labs, colon cancer screening, & diabetic eye exam Medications Medication SIG (Take, Route, Frequency, Duration) Notes Start Date End Date Status BD PEN NEEDLE 29G X1/2 (AUTOSHIELD) 1 TWO TIMES A DAY; Duration: 90 DAYS 06/25/2022 Active Omeprazole 40 MG TAKE 1 CAPSULE ONE TIME DAILY; Duration: 90 Active Tamsulosin HCl 0.4 MG 1 cap(s) orally on ce a day; Duration: 90 days Active Accu-Chek Roya Plus 1 TEST STRIP(S) FINGERSTICK TEST 2 TIMES A DAY; Duration: 30 DAYS 05/24/2020 Active BD Pen Needle Short U/F 31 GUAGE X 5/16 INCH 1 Q DAY 05/13/2022 Active Lantus SoloStar 100 UNIT/ML INJECT 30 UN ITS subcutaneously once daily Active Gabapentin 100 MG 2 capsule Orally Three times a day 04/11/2024 Active LANCET - BID 05/24/2020 Active Ventolin HFA 108 (90 Base) MCG/ACT 2 puff(s) inhaled every 6 hours prn wheezing 09/30/2019 Active Aspirin 81 MG 1 ORALLY ONCE DAILY Active buPROPion HCl ER (SR) 150 MG 1 tablet in the morning Orally Once a day Active Viibryd 40 MG 1 tab(s) orally once a day Active Tamsulosin HCl 0.4 MG 1 cap(s) orally on ce a day Active Metoprolol Succinate ER 100 MG 1 tab(s) orally once a day Active Atorvastatin Calcium 40 MG 1 tab(s) Oral ly once a day Active Indomethacin 25 MG 1 cap(s) orally 3 times a day 05/24/2020 Not-Taking SITagliptin Phosphate 100 MG 1 tab(s) orally once a day Active Levothyroxine Sodium 50 MCG 1 tab(s) ora lly once a day Active hydroCHLOROthiazide 12.5 MG TAKE 1 TABLE T EVERY DAY Active Losartan Potassium 100 MG 1 tab(s) orall y once a day Active Vraylar 1.5 MG 1 capsule Orally Onc e a day Not-Taking Clotrimazole-Betamethasone 1-0.05 % 1 will applied topically 2 times a day 11/08/2021 Not-Taking tiZANidine HCl 4 MG 1 tab(s) orally ever y 8 hours 05/24/2020 Not-Taking glucometer - Use meter to test 3 times a day 02/24/2024 Active Blood Glucose Test Strips 333 - 1 strip In Vitro Three times a day 02/24/2024 Active Meclizine HCl 25 MG 1 tablet as needed Orally Two times a day 12/08/2023 Active Naproxen 500 MG 1 tab(s) orally 2 times a day Active Atorvastatin Calcium 20 MG 1 tab(s) oral ly once a day; Duration: 90 days Active Farxiga 10 MG 1 tablet Orally Once a day; Duration: 90 days 05/24/2023 Active hydroCHLOROthiazide 12.5 MG 1 tablet Ora lly Once a day; Duration: 90 days Active Losartan Potassium 100 MG 1 tab(s) orall y once a day; Duration: 90 days Active Vital Signs Blood pressure systolic 134 mm Hg 04/19/20 24 Blood pressure diastolic 90 mm Hg 024 Heart Rate 67 /min 04/19/2024 Height 67 in 04/19/2024 Weight 216 lbs 04/19/2024 BMI 33.83 kg/m2 04/19/2024 Encounters Encounter Location Date Provider Diagnosis [facility] [address] [place], [place] [id number] 04/19/2024 R Hayes Art Cervicalgia M54.2 ; Arthritis of neck M47.812 ; Depression with anxiety F41.8 ; Acquired hypothyroidism E03.9 ; Peripheral neuropathy G62.9 ; Type 2 diabetes mellitus without complications E11.9 ; Dyslipidemia E78.5 ; Benign prostatic hyperplasia with lower urinary tract symptoms N40.1 and Hypertension, unspecified type I10 Assessments Encounter Date Diagnosis (ICD Code) Assessment Notes Treatment Notes Treatment Clinical Notes Section Notes 04/19/2024 Cervicalgia (ICD-10 - M54.2) 04/19/2024 Arthritis of neck (ICD-10 - M47.812) 04/19/2024 Depression with anxiety (ICD-10 - F41.8) 04/19/2024 Acquired hypothyroidism (ICD-10 - E03.9) 04/19/2024 Peripheral neuropathy (ICD-10 - G62.9) 04/19/2024 Type 2 diabetes mellitus without complications (ICD-10 - E11.9) 04/19/2024 Dyslipidemia (ICD-10 - E78.5) 04/19/2024 Benign prostatic hyperplasia with lower urinary tract symptoms (ICD-10 - N40.1) 04/19/2024 Hypertension, unspecified type (ICD-10 - I10) Plan Of Treatment Medication Medication Name Sig Start Date Stop Date Notes Lantus SoloStar 100 UNIT/ML INJECT 30 UN ITS subcutaneously once daily Gabapentin 100 MG 2 capsule Orally Thr ee times a day 04/11/2024 buPROPion HCl ER (SR) 150 MG 1 tablet in the morning Orally Once a day Viibryd 40 MG 1 tab(s) orally once a day Tamsulosin HCl 0.4 MG 1 cap(s) orally once a day Metoprolol Succinate ER 100 MG 1 tab(s) orally once a day Atorvastatin Calcium 40 MG 1 tab(s) Orally once a day SITagliptin Phosphate 100 MG 1 tab(s) orally once a day Levothyroxine Sodium 50 MCG 1 tab(s) orally once a day hydroCHLOROthiazide 12.5 MG TAKE 1 TABLET EVERY DAY Losartan Potassium 100 MG 1 tab(s) orally once a day Next Appt Details Follow Up: 3 Months with [facility], Reason: Provider Name:Kitty Polanco, 09/19/2025 10:00:00 AM, [address] [facility], [address] , [place], [place], [id number], Progress Notes * YULISSA YARBROUGH DDOB:1955 (69 yo M)Acc No.[id number]:04/19/2024 Progress Notes Patient: YULISSA MARKS Provider: Kitty Art M.D. :1955 A ge:68 Y S ex:Male Date:04/19/2024 Address:[address] [place], [place] [address] PA[place]O JEROME [id number] Subjective: * Chief Complaints: * 1 . 2 month f/u. 2. Needs labs, colon cancer screening, & diabetic eye exam. * HPI: N brad: 68 year old male presents with c/o pain P t presents today for a 2 month follow up. Pt sts that he is doing well on the gabapentin. Neck pain is much more manageable.. N eurology: Pt sts that he would like to discuss his memory. Pt sts that he feels his memory is worsening. Pt sts that he often forgets words. Pt sts that he will know what he wants to say but cannot find the words. P sychology: Generally, his depression symptoms have been stable. He does express some feelings of loneliness and concerns about financial resources. * ROS: D ERMATOLOGY: no R kanika. n o H hiwot. G ASTROENTEROLOGY: no N ausea. n o V omiting. D iarrhea y es.? U ROLOGY: no D ifficulty urinating. n o B lood in urine. * Medical History: H [place], HLP, Type 2 DM, insulin dependent, Depression, Sleep disturbances, Kidney stones, Closed head injury, Rheumatic fever as a child?, Lumbar Disc Disease, GERD, Traumatic injury left eye, Declines immunizations 05/2023, Declines colon cancer screening 05/2023. * Surgical History: a ppendectomy 1967, low back surgery , ruptured umbilical hernia , Left fifth digit on hand stitched back on , right cataract 2020. * Hospitalization/Major Diagno stic Procedure: H [facility]- Hyperosmolar hyperglycemia 08/2019. * Family History: F ather: 82 yrs, diagnosed with Hypertension, Heart Disease, Stroke, Cancer. M other: 80 yrs, heart problems, diagnosed with Hypertension, Heart Disease. 4 brother(s) , 2 sister(s) . 2 daughter(s) . . one brother from alcoholism, gangrene in leg\npt has 2 step children. * Social History: C URRENT TOBACCO USE: No . C affeine: yes, frequency: daily. Past smoking status: previous history, quit years ago in 1979. Alcohol: No. * Medications: T aking SITagliptin Phosphate 100 MG Tablet 1 tab(s) orally once a day , Taking Levothyroxine Sodium 50 MCG Tablet 1 tab(s) orally once a day , Taking Ventolin HFA 108 (90 Base) MCG/ACT Aerosol Solution 2 puff(s) inhaled every 6 hours prn wheezing , Taking Aspirin 81 MG 1 ORALLY ONCE DAILY , Taking LANCET - BID , Taking Accu- Chek Roya Plus 1 TEST STRIP(S) FINGERSTICK TEST 2 TIMES A DAY , Taking BD Pen Needle Short U/F 31 GUAGE X 5/16 INCH 1 Q DAY , Taking BD PEN NEEDLE 29G X1/2 (AUTOSHIELD) 1 TWO TIMES A DAY , Taking Omeprazole 40 MG Capsule Delayed Release TAKE 1 CAPSULE ONE TIME DAILY , Taking Tamsulosin HCl 0.4 MG Capsule 1 cap(s) orally once a day , Taking Atorvastatin Calcium 40 MG Tablet 1 tab(s) Orally once a day , Taking Tamsulosin HCl 0.4 MG Capsule 1 cap(s) orally once a day , Taking Losartan Potassium 100 MG Tablet 1 tab(s) orally once a day , Taking hydroCHLOROthiazide 12.5 MG Tablet 1 tablet Orally Once a day , Taking Metoprolol Succinate ER 100 MG Tablet Extended Release 24 Hour 1 tab(s) orally once a day , Taking Atorvastatin Calcium 20 MG Tablet 1 tab(s) orally once a day , Taking buPROPion HCl ER (SR) 150 MG Tablet Extended Release 12 Hour 1 tablet in the morning Orally Once a day , Taking Farxiga 10 MG Tablet 1 tablet Orally Once a day , Taking Viibryd 40 MG Tablet 1 tab(s) orally once a day , Taking Meclizine HCl 25 MG Tablet 1 tablet as needed Orally Two times a day , Taking Naproxen 500 MG Tablet Delayed Release 1 tab(s) orally 2 times a day , Taking Lantus SoloStar 100 UNIT/ML Solution Pen-injector INJECT 30 UNITS subcutaneously once daily , Taking glucometer - - Use meter to test 3 times a day , Taking Blood Glucose Test Strips 333 - Strip 1 strip In Vitro Three times a day , Taking Gabapentin 100 MG Capsule 2 capsule Orally Three times a day , Not-Taking Vraylar 1.5 MG Capsule 1 capsule Orally Once a day , Not-Taking Clotrimazole-Betamethasone 1-0.05 % Cream 1 will applied topically 2 times a day , Not-Taking tiZANidine HCl 4 MG Tablet 1 tab(s) orally every 8 hours , Not-Taking Indomethacin 25 MG Capsule 1 cap(s) orally 3 times a day , Medication List reviewed and reconciled with the patient * Allergies: N .K.D.A. Objective: * Vitals: W t:216, Temp:97.9, BP:134/90, HR:67, Nurse:HALIMA, Ht: 67, BMI:33.83. * Examination: P sychology: General Appearance: N AD. G rooming : neat. E ye contact : normal. M ood : pleasant. H eart: R SR. L ungs: c lear to auscultation. Assessment: * Assessment: 1. C ervicalgia - M54.2 (Primary) 2 . A rthritis of neck - M47.812 ? 3 . D epression with anxiety - F41.8 4 . A cquired hypothyroidism - E03.9 5 . P eripheral neuropathy - G62.9 6 . T ype 2 diabetes mellitus without complications - E11.9 7 . D yslipidemia - E78.5 ?8. B enign prostatic hyperplasia with lower urinary tract symptoms - N40.1 9 . H ypertension, unspecified type - I10 Plan: * Treatment: 2. D epression with anxiety Continue buPROPion HCl ER (SR) Tablet Extended Release 12 Hour, 150 MG, 1 tablet in the morning, Orally, Once a day; C ontinue Viibryd Tablet, 40 MG, 1 tab(s), orally, once a day. 3. A cquired hypothyroidism Continue Levothyroxine Sodium Tablet, 50 MCG, 1 tab(s), orally, once a day. 4. T ype 2 diabetes mellitus without complications Continue SITagliptin Phosphate Tablet, 100 MG, 1 tab(s), orally, once a day; C ontinue Lantus SoloStar Solution Pen-injector, 100 UNIT/ML, INJECT 30 UNITS, subcutaneously, once daily. 5. D yslipidemia Continue Atorvastatin Calcium Tablet, 40 MG, 1 tab(s), Orally, once a day. 6. B enign prostatic hyperplasia with lower urinary tract symptoms Continue Tamsulosin HCl Capsule, 0.4 MG, 1 cap(s), orally, once a day. 7. H ypertension, unspecified type Continue hydroCHLOROthiazide Tablet, 12.5 MG, TAKE 1 TABLET EVERY DAY; C ontinue Losartan Potassium Tablet, 100 MG, 1 tab(s), orally, once a day; C ontinue Metoprolol Succinate ER Tablet Extended Release 24 Hour, 100 MG, 1 tab(s), orally, once a day. * Follow Up: 3 Months with fasting labs * Images: Billing Information: * Visit Code: 27537 Office Visit, Est Pt., Level 3. * Procedure Codes: * Electronic signature of Kitty Art MD on 06/16/2025 at 09:35 AM EDT Sign off status: Pending * Provider: Ktity Art M.D. Date: 0 04/19/2024 Generated for Mahsa soliz/Rudy/Faustinosmitting on: 1 09:35 AM EDT History and Physical Notes * HPI (History of Present Illness) Category Sub-Category Detail Notes Category Not es Neurology Pt sts that he would like to discuss his memory. Pt sts that he feels his memory is worsening. Pt sts that he often forgets words. Pt sts that he will know what he wants to say but cannot find the words Neck pain Pt presents tokayla y for a 2 month follow up. Pt sts that he is doing well on the gabapentin. Neck pain is much more manageable. Examination Category Sub-Category Detail Notes Category Not es Psychology Heart: RSR Lungs: clear to auscultatio n General Appearance: NAD Grooming : neat Eye contact : normal Mood : pleasant
--- OUTSIDE RECORDS SUMMARY | 2024-05-24 10:45 | XMS_ITS ---
Author Organization [facility] Address [address] [facility] [address] [place] [phone] Care Team Providers Care Store Receiver Name Role Phone Kitty Art Primary Care Provider Allergies No Known Allergies REASON FOR VISIT bruise on head mower flipped on him Medications Medication SIG (Take, Route, Frequency, Duration) Notes Start Date End Date Status Atorvastatin Calcium 20 MG 1 tab(s) oral ly once a day; Duration: 90 days Active hydroCHLOROthiazide 12.5 MG 1 tablet Ora lly Once a day; Duration: 90 days Active Naproxen 500 MG 1 tab(s) orally 2 times a day Active Meclizine HCl 25 MG 1 tablet as needed Orally Two times a day 12/08/2023 Active Farxiga 10 MG 1 tablet Orally Once a day; Duration: 90 days 05/24/2023 Active BD PEN NEEDLE 29G X1/2 (AUTOSHIELD) 1 TWO TIMES A DAY; Duration: 90 DAYS 06/25/2022 Active BD Pen Needle Short U/F 31 GUAGE X 5/16 INCH 1 Q DAY 05/13/2022 Active Accu-Chek Roya Plus 1 TEST STRIP(S) FINGERSTICK TEST 2 TIMES A DAY; Duration: 30 DAYS 05/24/2020 Active Tamsulosin HCl 0.4 MG 1 cap(s) orally on ce a day; Duration: 90 days Active Omeprazole 40 MG TAKE 1 CAPSULE ONE TIME DAILY; Duration: 90 Active LANCET - BID 05/24/2020 Active Lantus SoloStar 100 UNIT/ML INJECT 30 UN ITS subcutaneously once daily Active Ventolin HFA 108 (90 Base) MCG/ACT 2 puff(s) inhaled every 6 hours prn wheezing 09/30/2019 Active Gabapentin 100 MG 2 capsule Orally Three times a day 04/11/2024 Active Aspirin 81 MG 1 ORALLY ONCE DAILY Active Tamsulosin HCl 0.4 MG 1 cap(s) orally on ce a day Active Atorvastatin Calcium 40 MG 1 tab(s) Oral ly once a day Active Viibryd 40 MG 1 tab(s) orally once a day Active buPROPion HCl ER (SR) 150 MG 1 tablet in the morning Orally Once a day Active Metoprolol Succinate ER 100 MG 1 tab(s) orally once a day Active hydroCHLOROthiazide 12.5 MG TAKE 1 TABLE T EVERY DAY Active Indomethacin 25 MG 1 cap(s) orally 3 times a day 05/24/2020 Not-Taking Levothyroxine Sodium 50 MCG 1 tab(s) ora lly once a day Active traMADol HCl 50 MG 1 tab(s) Orally q6h prn pain 05/24/2024 Active SITagliptin Phosphate 100 MG 1 tab(s) orally once a day Active tiZANidine HCl 4 MG 1 tab(s) orally ever y 8 hours 05/24/2020 Not-Taking Clotrimazole-Betamethasone 1-0.05 % 1 will applied topically 2 times a day 11/08/2021 Not-Taking Vraylar 1.5 MG 1 capsule Orally Onc e a day Not-Taking Losartan Potassium 100 MG 1 tab(s) orall y once a day; Duration: 90 days Active Blood Glucose Test Strips 333 - 1 strip In Vitro Three times a day 02/24/2024 Active glucometer - Use meter to test 3 times a day 02/24/2024 Active Vital Signs Blood pressure systolic 150 mm Hg 05/24/20 24 Blood pressure diastolic 90 mm Hg 024 Heart Rate 60 /min 05/24/2024 Height 67 in 05/24/2024 Weight 214.4 lbs 05/24/2024 BMI 33.58 kg/m2 05/24/2024 Encounters Encounter Location Date Provider Diagnosis [facility] [address] [facility] [address] [place] [phone] 05/24/2024 R Hayes Art Cervical strain S16.1XXA ; Chest wall contusion S20.219A and Abrasion of scalp, initial encounter S00.01XA Assessments Encounter Date Diagnosis (ICD Code) Assessment Notes Treatment Notes Treatment Clinical Notes Section Notes 05/24/2024 Cervical strain (ICD-10 - S16.1XXA) Alternate heat and ice 05/24/2024 Chest wall contusion (ICD-10 - S20.219A) 05/24/2024 Abrasion of scalp, initial encounter (ICD-10 - S00.01XA) Local wound care discussed Plan Of Treatment Medication Medication Name Sig Start Date Stop Date Notes traMADol HCl 50 MG 1 tab(s) Orally q6h prn pain 05/24/2024 Treatment Notes Assessment Notes Cervical strain Alternate heat and i ce Abrasion of scalp, initial encounter Loc al wound care discussed Next Appt Details Follow Up: prn, Reason: Provider Name:Kitty Polanco, 09/19/2025 10:00:00 AM, [address], [address], [place], [place], [phone], Progress Notes * YULISSA YARBROUGH DDOB:1955 (69 yo M)Acc No.[id number]:05/24/2024 Progress Notes Patient: YULISSA MARKS Provider: Kitty Art M.D. :1955 A ge:68 Y S ex:Male Date:05/24/2024 Address:[address] [place] [address] PA[place] [id number] Subjective: * Chief Complaints: * 1 . Bruise on head mower flipped on him. 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 He had no loss of consciousness. Denies hemoptysis or shortness of breath. * ROS: D ERMATOLOGY: no R kanika. [...] day , Taking hydroCHLOROthiazide 12.5 MG Tablet TAKE 1 TABLET EVERY DAY , Taking Atorvastatin Calcium 40 MG Tablet 1 tab(s) Orally once a day , Taking Tamsulosin HCl 0.4 MG Capsule 1 cap(s) orally once a day , Taking Metoprolol Succinate ER 100 MG Tablet Extended Release 24 Hour 1 tab(s) orally once a day , Taking buPROPion HCl ER (SR) 150 MG Tablet Extended Release 12 Hour 1 tablet in the morning Orally Once a day , Taking Viibryd 40 MG Tablet 1 tab(s) orally once a day , Taking Lantus SoloStar 100 UNIT/ML Solution Pen-injector INJECT 30 UNITS subcutaneously once daily , Taking Gabapentin 100 MG Capsule 2 capsule Orally Three times a day , Taking Ventolin HFA 108 [...] cap(s) orally once a day , Taking hydroCHLOROthiazide 12.5 MG Tablet 1 tablet Orally Once a day , Taking Atorvastatin Calcium 20 MG Tablet 1 tab(s) orally once a day , Taking Farxiga 10 MG Tablet 1 tablet Orally Once a day , Taking Meclizine HCl 25 MG Tablet 1 tablet as needed Orally Two times a day , Taking Naproxen 500 MG Tablet Delayed Release 1 tab(s) orally 2 times a day , Taking glucometer - - Use meter to test 3 times a day , Taking Blood Glucose Test Strips 333 - Strip 1 strip In Vitro Three times a day , Taking Losartan Potassium 100 MG Tablet 1 tab(s) orally once a day , Not-Taking Vraylar 1.5 MG [...] Allergies: N .K.D.A. Objective: * Vitals: W t:214.4, Temp:98.1, BP:150/90, HR:60, Nurse:HALIMA, Ht: 67, BMI:33.58. * Examination: G eneral Examination: General Appearance: N AD. H EENT: T here is a large 4 x 6 cm superficial abrasion over the right frontoparietal scalp. No drainage.. N brad: ?Muscular tenderness. Decreased range of motion. C hest: T here is tenderness to palpation over the right anterolateral chest wall. There is no redness, bruising, or abrasion..?Heart: R SR. L ungs: c lear to auscultation. Assessment: * Assessment: 1. C ervical strain - S16.1XXA (Primary) 2 . C hest wall contusion - S20.219A 3 . A brasion of scalp, initial encounter - S00.01XA Plan: * Treatment: 2. C hest wall contusion Start traMADol HCl Tablet, 50 MG, 1 tab(s), Orally, q6h prn pain, 24. 3. A brasion of scalp, initial encounter Notes: Local wound care discussed * Follow Up: p rn * Images: Billing Information: * Visit Code: 46566 Office Visit, Est Pt., Level 3. * Procedure Codes: * Electronic signature of Kitty Art MD on 06/16/2025 at 09:35 AM EDT Sign off status: Pending * Provider: Kitty Art M.D. Date: 0 05/24/2024 Generated for Mahsa soliz/Rudy/Faustinosmitting on: 1 09:35 AM EDT History and Physical Notes * Examination Category Sub-Category Detail Notes Category Not es General Examination HEENT: There is a l arge 4 x 6 cm superficial abrasion over the right frontoparietal scalp. No drainage. Heart: RSR Lungs: clear to auscultatio n General Appearance: NAD Neck: Muscular tenderness. Decreased range of motion Chest: There is tenderness to palpation over the right anterolateral chest wall. There is no redness, bruising, or abrasion.
--- OUTSIDE RECORDS SUMMARY | 2024-06-02 05:30 | XMS_ITS ---
Author Organization [facility] Address [address] [place] [id number] Care Team Providers Care Casting Tester Name Role Phone Kitty Art Primary Care Provider [phone] REASON FOR VISIT 6 month follow up Encounters Encounter Location Date Provider Diagnosis [facility] [address] [place] [phone] 06/02/2024 Kitty Art Plan Of Treatment Next Appt Details Provider Name:Kitty Polanco, 09/19/2025 10:00:00 AM, [address], [address], [place], [phone], Progress Notes * YULISSA YARBROUGH DDOB:1955 (69 yo M)Acc No.[id number]:06/02/2024 Progress Notes Patient: Ric GRACIEEraYULISSA Provider: Kitty Art M.D. :1955 A ge:68 Y S ex:Male Date:06/02/2024 Address:[address], [id number] Subjective: * Chief Complaints: * 1 . 6 month follow up. * Medical History: Objective: * Vitals: Assessment: Plan: * Treatment: * Images: Billing Information: * Visit Code: * Procedure Codes: * Electronic signature of Kitty Art MD on 06/16/2025 at 09:37 AM EDT Sign off status: Pending * Provider: Kitty Art M.D. Date: 1 Generated for Mahsa soliz/Rudy/Thomas on: 09:37 AM EDT
--- OUTSIDE RECORDS SUMMARY | 2024-07-21 05:30 | XMS_ITS ---
Author Organization [facility] Address [address] [place] [id number] Care Team Providers Care Straight Line Edger Name Role Phone Kitty Art Primary Care Provider Allergies No Known Allergies Results Component Value Reference Range Notes Glycohemoglobin A1c (in hous e) Reviewed date:07/25/2024 07:28:09 PM Interpretation:6.7% Performing Lab: Notes/Report: 6.7% glycohemoglobin 6.7% 5 - 6.5 % P-Comprehensive Metabolic Pa bernadette (CMP) Reviewed date:07/25/2024 07:28:09 PM Interpretation:gluc 140, Cr 1.34, gfr 58 Performing Lab: Notes/Report: Test performed by [facility] [address] [place] [address] , [address], [place] [address] Massimo Max MD, Court Magistrate CLIA: [id number] Sodium 140 135-145 mmol/L Potassium 3.8 3.5-5.3 [...] 169 Performing Lab: Notes/Report: Test performed by [facility], [address] , [place] [address] Massimo Max MD, Court Magistrate CLIA: [id number] Cholesterol 150 <200 mg/dL Triglycerides 169 <150 [...] Interpretation:Normal Performing Lab: Notes/Report: Test performed by [facility], [address] , [address], [place] [address] Massimo Max MD, Court Magistrate CLIA: [id number] TSH 2.74 0.43-5.25 mU/L REASON FOR VISIT [...] Status W/U Status Risk Notes Problem Cervicalgia (03916271) Cervicalgia (M54.2) Active confirmed Vital Signs Blood pressure systolic 146 mm Hg 07/21/20 24 Blood pressure diastolic 88 mm Hg 024 Heart Rate 53 /min 07/21/2024 Height 67 in 07/21/2024 Weight 213.2 lbs 07/21/2024 BMI 33.39 kg/m2 07/21/2024 Encounters Encounter [facility] Date [facility] [address] [place] [phone] 07/21/2024 R Hayes Art Cervicalgia M54.2 ; Arthritis [...] [address], [place], [place], [phone], Progress Notes * LINNEA YULISSA DDOB:1955 (69 yo M)Acc No.[id number]:07/21/2024 Progress Notes Patient: YULISSA MARKS Provider: Kitty Art M.D. :1955 A ge:68 Y S ex:Male Date:07/21/2024 Address:[address] [place] [address], [id number] Subjective: * Chief Complaints: * 1 . [...] 6.7% 5 - 6.5 % * Hazel Barber 07/21/2024 10: 10:34 AM > Kitty Art [...] G 2211 Complex e/[place], [address] CAPILLARY BLOOD DRAW, [address] GLYCATED HEMOGLOBIN TEST, Modifiers: QW * Follow Up: 3 Months * Images: Billing Information: * Visit Code: 39726 Office Visit, Est Pt., Level 4. * Procedure Codes: G2211 Complex e/[place]. [address] CAPILLARY BLOOD DRAW. 39231 GLYCATED HEMOGLOBIN TEST. Modifiers: QW * Electronic signature of Kitty Art MD on 06/16/2025 at 09:36 AM EDT Sign off status: Pending * Provider: Kitty Art M.D. Date: 09/20/2023 Generated for Randeei ng/Timig/eTransmitting on: 09:36 AM EDT History and Physical Notes * [...]
--- OUTSIDE RECORDS SUMMARY | 2024-10-27 07:15 | XMS_ITS ---
[facility] Address [address] [place] [id number] Care Team Providers Care Gear Tester Name Role Phone Kitty Art Primary [...] Duration: 90 DAYS 06/25/2022 Active Vital Signs Blood pressure systolic 126 mm Hg 10/27/19 25 Blood pressure diastolic 86 mm Hg 025 Heart Rate 63 /min 10/27/2024 Height 67 in 10/27/2024 Weight 208.6 lbs 10/27/2024 BMI 32.67 kg/m2 10/27/2024 Encounters Encounter Location Date Provider Diagnosis [facility] [address] [phone] 10/27/2024 Kitty Art Adult general medica l [...] [address], [address], [place], [place], [id number], Progress Notes * LINNEA YULISSA DDOB:1955 (69 yo M)Acc No.[id number]:10/27/2024 Annual Wellness Visit Patient: YULISSA MARKS Provider: Kitty Art M.D. :1955 A ge:69 Y S ex:Male Date:10/27/2024 Address:[address] [place] [address], [id number] Subjective: * Chief Complaints: * 1 . [...] unspecified type - I10 1 1. B ND 32.0-32.9,adult - Z68.32 Plan: * Treatment: 2. [...] * Images: Billing Information: * Visit Code: 43517 Office Visit, Est Pt., Level 3. Modifiers: [...] 10/27/2024 Generated for Mahsa soliz/Rudy/Thomas on: 1 09:36 AM EDT History and Physical Notes [...]
--- OUTSIDE RECORDS SUMMARY | 2025-01-26 11:00 | XMS_ITS ---
Author Organization [facility] Address [address] [place] [id number] Care Team Providers Care Independent Freight Agent Name Role Phone Kitty Art Primary Care Provider MattCourt james Unavailable [phone] Allergies No Known Allergies Results Component Value Reference Range Notes Urinalysis - Inhouse Reviewed date:01/27/2025 12:35:51 AM Interpretation: Performing Lab: Notes/Report: Color/Clarity yellow Leuk neg Nitrite neg Urobili 3.2 Protein 1+ pH 5.5 Blood trace Sp. Gr. 1.020 Ketone neg Bili neg Gluc 3+ CBC Fingerstick (in house) Reviewed date:01/27/2025 12:35:51 AM Interpretation: Performing Lab: Notes/Report: wbc 8.2 3.5 - 10 lym 24.0 15 - 50 mid 7.5 2 - 15 gran 68.5 35 - 80 rbc 6.37 3.5 - 5.5 hgb 18.7 11.5 - 16.5 hct 57.6 35 - 55 mcv 90.4 75 - 100 mch 29.4 25 - 35 mchc 32.4 31 - 38 plat 201 100 - 400 Glycohemoglobin A1c (in hous e) Reviewed date:01/27/2025 12:35:51 AM Interpretation:6.3% Performing Lab: Notes/Report: 6.3% glycohemoglobin 6.3% 5 - 6.5 % P-Comprehensive Metabolic Pa bernadette (CMP) Reviewed date:01/27/2025 09:40:24 AM Interpretation:Na 146, gluc 112, Cr 1.42, gfr 54 Performing Lab: Notes/Report: Test performed by [facility] [address] [place] [address] , [address], [place] [address] Massimo Max MD, Research And Development Chemist CLIA: [id number] Sodium 146 135-145 mmol/L Potassium 4.2 3.5-5.3 mmol/L Chloride 103 97-108 mmol/L CO2 29 22-32 mmol/L Glucose 112 65-99 mg/dL BUN 19 8-23 mg/dL Creatinine 1.42 0.70-1.30 mg/dL Calcium 9.5 8.6-10.4 mg/dL eGFR by Creatinine 54 >59 mL/min/1.73m2 Protein 6.6 6.0-8.3 g/dL Albumin 4.1 3.5-5.3 g/dL Alkaline Phosphatase 59 40-129 IU/L ALT (SGPT) 27 <5-55 IU/L AST (SGOT) 21 <5-46 IU/L Bilirubin, Total 0.5 <0.2-1.2 mg/dL A/G Ratio 1.6 1.1-2.5 P-Culture, Urine Reviewed date:01/27/2025 09:40:24 AM Interpretation:test cancelled Performing Lab: Notes/Report: Test Cancelled Test Cancelled Auto Cancel by System. No Available Specimens for ordered test P-Lipid Panel Reviewed date:01/27/2025 09:40:24 AM Interpretation:chol 247, trigs 237, chol/hdl 5.26, non-hdl 200, ldl 153 Performing Lab: Notes/Report: Test performed by [facility] [address] [place] [address] , [address], [place] [address] Massimo Max MD, Research And Development Chemist CLIA: [id number] Cholesterol 247 <200 mg/dL Triglycerides 237 <150 mg/dL HDL Cholesterol 47 >39 mg/dL Cholesterol / HDL Ratio 5.26 0.00-4.99 Ratio Non-HDL Cholesterol 200 <130 mg/dL LDL Cholesterol (Calculation) 153 <130 mg/dL LDL Cholesterol Levels* Less than 100 mg/dL Optimal 100 to 129 mg/dL Near Optimal/ Above Optimal 130 to 159 mg/dL Borderline High 160 to 189 mg/dL High 190 mg/dL and above Very High * Categories as recommended by the 2004 ATPIII guidelines LDL/HDL Ratio 3.2 <3.3 Ratio _ LDL Cholesterol Patient History _ Test Date: 12/08/2023 LDL Results: 135 Units: mg/dL % Change: +46% - Test Date: 07/21/2024 LDL Results: 72 Units: mg/dL % Change: -46% - Test Date: 01/26/2025 LDL Results: 153 Units: mg/dL % Change: +112% _ P-TSH Reviewed date:01/27/2025 09:40:24 AM Interpretation:Normal Performing Lab: Notes/Report: Test performed by [facility], [address] , [place] [address] Massimo Max MD, Research And Development Chemist CLIA: [id number] TSH 2.81 0.43-5.25 mU/L REASON FOR VISIT b/p is high, diarrhea & lab work Medications Medication SIG (Take, Route, Frequency, Duration) Notes Start Date End Date Status Naproxen 500 MG 1 tab(s) orally 2 ti mes a day Active Meclizine HCl 25 MG 1 tablet as needed Orally Two times a day 12/08/2023 Active Blood Glucose Test Strips 33 3 - 1 strip In Vitro Three times a day 02/24/2024 Active glucometer - Use meter to test 3 times a day 02/24/2024 Active Omeprazole 40 MG TAKE 1 CAPSULE ONE T ANYA DAILY; Duration: 90 Active LANCET - BID 05/24/2020 Active Aspirin 81 MG 1 ORALLY ONCE DAILY Active BD Pen Needle Short U/F 31 GUAGE X 5/16 INCH 1 Q DAY 05/13/2022 Active Accu-Chek Roya Plus 1 TEST STRIP(S) FINGERSTICK TEST 2 TIMES A DAY; Duration: 30 DAYS 05/24/2020 Active BD PEN NEEDLE 29G X1/2 (AUTOSHIELD) 1 TWO TIMES A DAY; Duration: 90 DAYS 06/25/2022 Active Gabapentin 100 MG 2 capsule Orally Thr ee times a day 01/19/2025 Active hydroCHLOROthiazide 12.5 MG 2 tab Orally Once a day Active Ventolin HFA 108 (90 Base) MCG/ACT 2 puff(s) inhaled every 6 hours prn wheezing 09/30/2019 Active Levothyroxine Sodium 50 MCG TAKE 1 TABLE T BY MOUTH ONCE DAILY; Duration: 90 Active Vilazodone HCl 40 MG 1 tab(s) Orally Onc e a day; Duration: 90 days Active Metoprolol Succinate ER 100 MG TAKE 1 TABLET BY MOUTH ONCE DAILY; Duration: 90 days Active Atorvastatin Calcium 20 MG TAKE 1 TABLET BY MOUTH ONCE DAILY; Duration: 90 Active Tamsulosin HCl 0.4 MG TAKE 1 CAPSULE BY MOUTH ONCE DAILY; Duration: 90 Active Farxiga 10 MG 1 tablet Orally Once a day; Duration: 90 days Active Lantus SoloStar 100 UNIT/ML INJECT 30 UN ITS SUBCUTANEOUSLY ONCE DAILY KEEP IN REFRIGERATOR; Duration: 50 days Active SITagliptin Phosphate 100 MG 1 tab(s) or ally once a day Active buPROPion HCl ER (SR) 150 MG TAKE 1 TABL ET BY MOUTH IN THE MORNING; Duration: 90 days Active buPROPion HCl ER (SR) 150 MG 1 tablet in the morning Orally Once a day Active Losartan Potassium 100 MG TAKE 1 TABLET BY MOUTH ONCE DAILY; Duration: 90 Active Viibryd 40 MG 1 tab(s) orally once a day Active traMADol HCl 50 MG 1 tab(s) Orally q6h prn pain 06/21/2024 Active Vital Signs Blood pressure systolic 130 mm Hg 01/27/20 25 Blood pressure diastolic 90 mm Hg 025 Heart Rate 67 /min 01/26/2025 Height 67 in 01/26/2025 Weight 209.8 lbs 01/26/2025 BMI 32.86 kg/m2 01/26/2025 Encounters Encounter Location Date Provider Diagnosis [facility] [address] [id number] 01/26/2025 [address] [facility] Type 2 diabetes viridiana itus without complications E11.9 ; Dyslipidemia E78.5 ; Acquired hypothyroidism E03.9 ; Hypertension, unspecified type I10 ; Chronic diarrhea K52.9 ; Dysuria R30.0 ; Depression F32.9 and BMI 32.0-32.9,adult Z68.32 Assessments Encounter Date Diagnosis (ICD Code) Assessment Notes Treatment Notes Treatment Clinical Notes Section Notes 01/26/2025 Type 2 diabetes mellitus without complications (ICD-10 - E11.9) 01/26/2025 Dyslipidemia (ICD-10 - E78.5) 01/26/2025 Acquired hypothyroidism (ICD-10 - E03.9) 01/26/2025 Hypertension, unspecified type (ICD-10 - I10) Will monitor BP at home and f/u in the office with a BP log 01/26/2025 Chronic diarrhea (ICD-10 - K52.9) He is going to get a stool sample so we can do a TEN diarrhea panel. 01/26/2025 Dysuria (ICD-10 - R30.0) 01/26/2025 Depression (ICD-10 - F32.9) 01/26/2025 BMI 32.0-32.9,adult (ICD-10 - Z68.32) Plan Of Treatment Medication Medication Name Sig Start Date Stop Date Notes hydroCHLOROthiazide 12.5 MG 2 tab Orally Once a day Treatment Notes Assessment Notes Hypertension, unspecified type Will samir tor BP at home and f/u in the office with a BP log Chronic diarrhea He is going to get a stool sample so we can do a TEN diarrhea panel. Next Appt Details Follow Up: via phone to repo rt test results, Reason: Provider Name:Kitty Polanco, 09/19/2025 10:00:00 AM, [address], [address], [place], [place], [phone], Progress Notes * YARBROUGHYULISSA DDOB:1955 (69 yo M)Acc No.[id number]:01/26/2025 Progress Notes Patient: YULISSA MARKS Provider: ZAKI Torres :1955 A ge:69 Y S ex:Male Date:01/26/2025 Address:[address] [place], [place] [id number] Pcp:Kitty Art Subjective: * Chief Complaints: * 1 . B/p is high, diarrhea & lab work. * HPI: C ardiology: 69 year old male presents with c/o Blood Pressure Elevated P t sts he does check his BP at home and sts it was 177/100 on T uesday, and yesterday it was 186/119. Pt sts he would like to discuss his BP medications as well. G astroenterology: c/o Diarrhea P t sts he has had diarrhea since the last visit he had here. Pt sts if he does take imodium he has normal BMs and sts if he does not take that it is diarrhea with mucus. H PI: c/o Patient is here today for l ab work. * ROS: R ESPIRATORY: no S hortness of breath. n o C hest pain. ? C ARDIOLOGY: no C hest pain. n o P alpitations. E NT: no C old. n o C ough. O PTHALMOLOGY: Negative for d enies vision [...] History: F ather: 84 yrs, diagnosed with Cancer, Hypertension, Heart Disease, Stroke. M other: 82 yrs, heart problems, diagnosed [...] Vitro Three times a day , Taking traMADol HCl 50 MG Tablet 1 tab(s) Orally q6h prn pain , Taking buPROPion HCl ER (SR) 150 MG Tablet Extended Release 12 Hour TAKE 1 TABLET BY MOUTH IN THE MORNING , Taking SITagliptin Phosphate 100 MG Tablet 1 tab(s) orally once a day , Taking hydroCHLOROthiazide 12.5 MG Tablet TAKE 1 TABLET EVERY DAY , Taking buPROPion HCl ER (SR) 150 MG Tablet Extended Release 12 Hour 1 tablet in the morning Orally Once a day , Taking Viibryd 40 MG Tablet 1 tab(s) orally once a day , Taking Losartan Potassium 100 MG Tablet TAKE 1 TABLET BY MOUTH ONCE DAILY , Taking Tamsulosin HCl 0.4 MG Capsule TAKE 1 CAPSULE BY MOUTH ONCE DAILY , Taking Atorvastatin Calcium 20 MG Tablet TAKE 1 TABLET BY MOUTH ONCE DAILY , Taking Lantus SoloStar 100 UNIT/ML Solution Pen-injector INJECT 30 UNITS SUBCUTANEOUSLY ONCE DAILY KEEP IN REFRIGERATOR , Taking Farxiga 10 MG Tablet 1 tablet Orally Once a day , Taking Metoprolol Succinate ER 100 MG Tablet Extended Release 24 Hour TAKE 1 TABLET BY MOUTH ONCE DAILY , Taking Gabapentin 100 MG Capsule 2 capsule Orally Three times a day , Taking Vilazodone HCl 40 MG Tablet 1 tab(s) Orally Once a day , Taking Levothyroxine Sodium 50 MCG Tablet TAKE 1 TABLET BY MOUTH ONCE DAILY , Medication List reviewed and reconciled with the patient * Allergies: N .K.D.A. Objective: * Vitals: W t: 209.8, Temp: 98.3, BP: 130/90, HR: 67, Nurse: jordy, Ht: 67, Repeat BP: 140/80, BMI:32.86. * Examination: G eneral Examination: General Appearance: N AD. H EENT: u nremarkable.?Oral cavity: n o lesions, mucosa moist and WNL, no erythema. N brad: s upple, no lymphadenopathy. C hest: n ormal shape and expansion. H eart: R SR. L ungs: c lear to auscultation. A bdomen: b owel sounds present , soft and nontender , no organomegaly or masses , no guarding or rigidity. N eurologic Exam: I ntact, gait normal. S kin: n ormal, no rash. P eripheral pulses: n ormal (2+) bilaterally. E xtremities: n o leg edema. Assessment: * Assessment: 1. T ype 2 diabetes mellitus without complications - E11.9 2 . D yslipidemia - E78.5 3 . A cquired hypothyroidism - E03.9 4 . H ypertension, unspecified type - I10 5 . C hronic diarrhea - K52.9 6 . Dysuria - R30.0 7 . D epression - F32.9 8 . B UT 32.0-32.9,adult - Z68.32 Plan: * Treatment: Value Reference Range w bc 8.2 3.5 - 10 * l ym 24.0 15 - 50 * m id 7.5 2 - 15 * g ran 68.5 35 - 80 * r bc 6.37 3.5 - 5.5 * h gb 18.7 11.5 - 16.5 * h ct 57.6 35 - 55 * m cv 90.4 75 - 100 * m ch 29.4 25 - 35 * m chc 32.4 31 - 38 * p lat 201 100 - 400 * Rachel Lott 01/26/2025 09:3 9:29 AM > ?LAB: Glycohemoglobin A1c (in house) (Collection Date & Time - 01/26/2025)? 6.3%* Value Reference Range g lycohemoglobin 6.3% 5 - 6.5 % * Rachel Lott 01/26/2025 09:4 0:21 AM > 2.?Dyslipidemia?LAB: P-Lipid Panel (Collection Date & Time - 01/26/2025 08:21 AM)?chol 247, trigs 237, chol/hdl 5.26, non-hdl 200, ldl 153* Value Reference Range C holesterol / HDL Ratio 5.26 H 0.00-4.99 - Ratio * C holesterol 247 H <200 - mg/dL * H DL Cholesterol 47 >39 - mg/dL * L DL Cholesterol (Calculation) 153 H <130 - mg/d L * L DL/HDL Ratio 3.2 <3.3 - Ratio * N on-HDL Cholesterol 200 H <130 - mg/dL * T riglycerides 237 H <150 - mg/dL * [facility] 01/27/2025 9: 40:18 AM > see TE 3.?Acquired hypothyroidism?LAB: P-TSH (Collection Date & Time - 01/26/2025 08:21 AM)?Normal* Value Reference Range T SH 2.81 0.43-5.25 - mU/L * Court [facility] 01/27/2025 9: 40:18 AM > see TE 4.?Hypertension, unspecified type? Increase hydroCHLOROthiazide Tablet, 12.5 MG, 2 tab, Orally, Once a day.?LAB: P-Comprehensive Metabolic Panel (CMP) (Collection Date & Time - 01/26/2025 08:21 AM)?Na 146, gluc 112, Cr 1.42, gfr 54* Value Reference Range A /G Ratio 1.6 1.1-2.5 - * A lbumin 4.1 3.5-5.3 - g/dL * A lkaline Phosphatase 59 40-129 - IU/L * A LT (SGPT) 27 <5-55 - IU/L * A ST (SGOT) 21 <5-46 - IU/L * B ilirubin, Total 0.5 <0.2-1.2 - mg/dL * B UN 19 8-23 - mg/dL * C alcium 9.5 8.6-10.4 - mg/dL * C hloride 103 97-108 - mmol/L * C O2 29 22-32 - mmol/L * C reatinine 1.42 H 0.70-1.30 - mg/dL * G lucose 112 H 65-99 - mg/dL * P otassium 4.2 3.5-5.3 - mmol/L * S odium 146 H 135-145 - mmol/L * P rotein 6.6 6.0-8.3 - g/dL * e GFR by Creatinine 54 L >59 - mL/min/1.73m2 * Court [facility] 01/27/2025 9: 40:18 AM > see TE Notes: Will monitor BP at home and f/u in the office with a BP log??5.?Chronic diarrhea? Notes: He is going to get a stool sample so we can do a TEN diarrhea panel.?? 6.?Dysuria?LAB: P-Culture, Urine (Collection Date & Time - 01/26/2025 08:21 AM)?test cancelled* Value Reference Range T est Cancelled Test Cancelled - * Court [facility] 01/27/2025 9: 40:18 AM > see TE ?LAB: Urinalysis - Inhouse (Collection Date & Time - 01/26/2025)* Value Reference Range C olor/Clarity yellow * L euk neg * N itrite neg * U robili 3.2 * P rotein 1+ * p H 5.5 * B lood trace * S p. Gr. 1.020 * K etone neg * B raymond neg * G jonathan 3+ * Rachel Lott 01/26/2025 04:0 5:54 PM > Provider reviewed results while patient in office. * Procedure Codes: G 2211 Complex e/[place], [address] GLYCATED HEMOGLOBIN TEST, Modifiers: QW , 34795 CBC WITH AUTO DIFF, 96957 Urinalysis, no micro, G8950 PREHTN/HTN BP DOC INDCD F/U DOC, G8752 MOST RECENT SYSTOLIC BP < 140MM HG, G8754 MOST RECENT DIASTOLIC BP < 90MM HG, 3044F HG A1C LEVEL LT 7.0% * Follow Up: v ia phone to report test results * Images: Billing Information: * Visit Code: 29312 Office Visit, Est Pt., Level 4. * Procedure Codes: G2211 Complex e/[place]. [address] GLYCATED HEMOGLOBIN TEST. Modifiers: QW 15529 CBC WITH AUTO DIFF. 22635 Urinalysis, no micro. G8950 PREHTN/HTN BP DOC INDCD F/U DOC. G8752 MOST RECENT SYSTOLIC BP < 140MM HG. G8754 MOST RECENT DIASTOLIC BP < 90MM HG. 3044F HG A1C LEVEL LT 7.0%. * Electronic signature of ZAKI Quintero on 06/16/2025 at 09:35 AM EDT Sign off status: Pending * Provider: ZAKI Torres Date: 0 01/26/2025 Generated for Mahsa soliz/Rudy/eTransmitting on: 1 09:35 AM EDT History and Physical Notes * HPI (History of Present Illness) Category Sub-Category Detail Notes Category Not es Cardiology Blood Pressure Elevated Pt sts h e does check his BP at home and sts it was 177/100 on Thursday, and yesterday it was 186/119. Pt sts he would like to discuss his BP medications as well Gastroenterology Diarrhea Pt sts he has h ad diarrhea since the last visit he had here. Pt sts if he does take imodium he has normal BMs and sts if he does not take that it is diarrhea with mucus HPI Patient is here toda y for lab work Examination Category Sub-Category Detail Notes Category Not es General Examination HEENT: unremarkable Heart: RSR Lungs: clear to auscultatio n Abdomen: bowel sounds present , soft and nontender , no organomegaly or masses , no guarding or rigidity Extremities: no leg edema General Appearance: NAD Skin: normal, no rash Neurologic Exam: Intact, gait normal Neck: supple, no lymphaden opathy Oral cavity: no lesions, mucosa m oist and WNL, no erythema Peripheral pulses: normal (2+) bilatera lly Chest: normal shape and exp ansion
--- OUTSIDE RECORDS SUMMARY | 2025-01-27 07:00 | XMS_ITS ---
Author Organization [facility] Address [facility] [facility] [address] [place] [id number] Care Team Providers Care Furnace Repairer Name Role Phone Kitty Art Primary Care Provider [phone] [address] [phone] Results Component Value Reference Range Notes TEN-stool panel Reviewed date:02/01/2025 04:52:32 PM Interpretation:REJECTED Performing Lab: Notes/Report: REJECTED REASON FOR VISIT stool sample Encounters Encounter Location Date Provider Diagnosis [facility] [address] [facility] [address] [place] [id number] 01/27/[address]25 [address] [facility] Diarrhea R19.7 Assessments Encounter Date Diagnosis (ICD Code) Assessment Notes Treatment Notes Treatment Clinical Notes Section Notes 01/27/2025 Diarrhea (ICD-10 - R19.7) Plan Of Treatment Next Appt Details Provider Name:Kitty Polanco, 09/19/2025 10:00:00 AM, [address] [facility], [address], [place], [id number], Progress Notes * YULISSA YARBROUGH DDOB:1955 (69 yo M)Acc No.[id number]:01/27/2025 Patient: YULISSA MARKS Provider: ZAKI Torres :1955 [...] signature of ZAKI Quintero on 06/16/2025 at 09:37 AM EDT Sign off status: Pending * Provider: ZAKI Torres Date: 0 01/27/2025 Generated for Mahsa soliz/Rudy/eTransmitting on: 09:37 AM EDT
--- OUTSIDE RECORDS SUMMARY | 2025-02-03 07:40 | XMS_ITS ---
Author Organization [facility] Address [facility] [facility] [address] [place] [phone] Care Team Providers Care Ship Unloader Name Role Phone Kitty Art Primary Care Provider REASON FOR VISIT stool sample Encounters Encounter Location Date Provider Diagnosis [facility] [address] [place] [id number] 02/03/2025 Kitty Art Plan Of Treatment Next Appt Details Provider Name:Kitty Polanco, 09/19/2025 10:00:00 AM, [address], [address], [place], [phone], Progress Notes * YULISSA YARBROUGH DDOB:1955 (69 yo M)Acc No.[id number]:02/03/2025 Patient: Ric GRACIEEraYULISSA Provider: Kitty Art M.D. [...] 02/03/2025 Generated for Mahsa soliz/Rudy/Thomas on: 1 09:35 AM EDT
--- OUTSIDE RECORDS SUMMARY | 2025-02-21 05:15 | XMS_ITS ---
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 Name Role Phone Kitty Art Primary Care [...] Status Risk Notes Problem Irritable bowel syndrome (05580730) Irritable bowel syndrome (K58.9) Active confirmed Vital Signs Blood pressure systolic 132 mm Hg 02/22/20 25 Blood pressure diastolic 84 mm Hg 025 Heart Rate 65 /min 02/21/2025 Height 67 in 02/21/2025 Weight 208.6 lbs 02/21/2025 BMI 32.67 kg/m2 02/21/2025 Encounters Encounter Location Date Provider Diagnosis [facility] [address] [facility] [address] [place], [place] [phone] 02/21/2025 R Hayes Art Depression F32.9 ; [...] Name:Kitty Polanco, 09/19/2025 10:00:00 AM, [address] [facility] [address] [facility], [address], [place], [place], [id number], Progress Notes * YULISSA YARBROUGH DDOB:1955 (69 yo M)Acc No.[id number]:02/21/2025 Progress Notes Patient: YULISSA MARKS Provider: Kitty Art M.D. :1955 A ge:69 Y S ex:Male Date:02/21/2025 Address:[address] [place], [place] [id number] Subjective: * Chief Complaints: * 1 . [...] * Images: Billing Information: * Visit Code: 74039 Office Visit, Est Pt., Level 4. * [...] 02/21/2025 Generated for Mahsa soliz/Rudy/Thomas on: 1 09:36 [...]
--- OUTSIDE RECORDS SUMMARY | 2025-06-15 06:00 | XMS_ITS ---
Author [facility] Address [address] [place] [id number] Care Team Providers Care Applications Developer Name Role Phone Kitty Art Primary Care Provider Allergies No Known Allergies REASON FOR VISIT 3 months, patient needs KED (eGFR and uACR) to close 2024 Quality Gap Medications Medication SIG (Take, Route, Frequency, Duration) Notes Start Date End Date Status Lantus SoloStar 100 UNIT/ML 30 units Sub cutaneous once a day; Duration: 90 days Active Losartan Potassium 100 MG TAKE 1 TABLET BY MOUTH ONCE DAILY; Duration: 90 Active amLODIPine Besylate 5 MG 2 tabs Orally O nce a day; Duration: 90 days 01/27/2025 Active Celecoxib 200 MG 1 capsule Orally Onc e a day; Duration: 90 days 03/26/2025 Active Atorvastatin Calcium 20 MG 1 tablet Oral ly Once a day; Duration: 90 days Active Farxiga 10 MG 1 tablet Orally Once a day; Duration: 90 days Active Tamsulosin HCl 0.4 MG 1 capsule Orally O nce a day; Duration: 90 days Active Levothyroxine Sodium 50 MCG TAKE 1 TABLE T BY MOUTH ONCE DAILY; Duration: 90 Active Gabapentin 100 MG 2 capsule Orally Thr ee times a day 01/19/2025 Active BD PEN NEEDLE 29G X1/2 (AUTOSHIELD) 1 TWO TIMES A DAY; Duration: 90 DAYS Active SITagliptin Phosphate 100 MG 1 tab(s) orally once a day Active traMADol HCl 50 MG 1 tab(s) Orally q6h prn pain 06/21/2024 Active buPROPion HCl ER (SR) 150 MG 1 tablet in the morning Orally Once a day Active Blood Glucose Test Strips 333 - 1 strip In Vitro Three times a day 02/24/2024 Active glucometer - Use meter to test 3 times a day 02/24/2024 Active Meclizine HCl 25 MG 1 tablet as needed O rally Two times a day 12/08/2023 Active Accu-Chek Roya Plus 1 TEST STRIP(S) FINGERSTICK TEST 2 TIMES A DAY; Duration: 30 DAYS 05/24/2020 Active LANCET - BID 05/24/2020 Active Omeprazole 40 MG TAKE 1 CAPSULE ONE T ANYA DAILY; Duration: 90 Active BD Pen Needle Short U/F 31 GUAGE X 5/16 INCH 1 Q DAY 05/13/2022 Active Vilazodone HCl 40 MG 1 tab(s) Orally Onc e a day Active Metoprolol Succinate ER 100 MG 1 tablet Orally Once a day Active Aspirin 81 MG 1 ORALLY ONCE DAILY Active Ventolin HFA 108 (90 Base) MCG/ACT 2 puff(s) inhaled every 6 hours prn wheezing 09/30/2019 Active buPROPion HCl ER (SR) 150 MG 1 tablet in the morning Orally twice a day; Duration: 90 days Active Problems Problem Type SNOMED Code ICD Code Onset Dates Problem Status W/U Status Risk Notes Problem Polyneuropathy due to type 2 diabetes mellitus (041256928) 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 Vital Signs Blood pressure systolic 140 mm Hg 06/15/20 25 Blood pressure diastolic 78 mm Hg 025 Heart Rate 66 /min 06/15/2025 Height 67 in 06/15/2025 Weight 207 lbs 06/15/2025 BMI 32.42 kg/m2 06/15/2025 Encounters Encounter Location Date Provider Diagnosis [facility] [address] [facility] [address] [place], [place] [phone] 06/15/2025 R Hayes Kaelyn Foot pain, right M79 .671 ; Chest pain R07.9 ; DM type 2 with diabetic peripheral neuropathy E11.42 ; Hypertension, unspecified type I10 ; Depression with anxiety F41.8 ; Benign prostatic hyperplasia with lower urinary tract symptoms N40.1 ; Dyslipidemia E78.5 and Acquired hypothyroidism E03.9 Assessments Encounter Date Diagnosis (ICD Code) Assessment Notes Treatment Notes Treatment Clinical Notes Section Notes 06/15/2025 Foot pain, right (ICD-10 - M79.671) 06/15/2025 Chest pain (ICD-10 - R07.9) 06/15/2025 DM type 2 with diabetic peripheral neuropathy (ICD-10 - E11.42) 06/15/2025 Hypertension, unspecified type (ICD-10 - I10) 06/15/2025 Depression with anxiety (ICD-10 - F41.8) 06/15/2025 Benign prostatic hyperplasia with lower urinary tract symptoms (ICD-10 - N40.1) 06/15/2025 Dyslipidemia (ICD-10 - E78.5) 06/15/2025 Acquired hypothyroidism (ICD-10 - E03.9) Plan Of Treatment Pending Test Test Name Order Date X ray : Foot, right 06/15/2025 Stress Test. cardiac Routine 06/15/2025 H-TSH 06/15/2025 H-Microalbumine/Creatinine 06/15/2025 H-Lipid Panel 06/15/2025 H-CMP 06/15/2025 H-Glycohemoglobin A1C 06/15/2025 H-PSA 06/15/2025 Next Appt Details Follow Up: after tests, Reas on: Provider Name:Kitty Polanco, 09/19/2025 10:00:00 AM, [address], [place], [phone], Progress Notes * YULISSA YARBROUGH DDOB:1955 (69 yo M)Acc No.[id number]:06/15/2025 Progress Notes Patient: YULISSA MARKS Justyn Provider: Kitty Art M.D. :1955 A ge:69 Y S ex:Male Date:06/15/2025 Address:[address] [place], [place] [phone] Subjective: * Chief Complaints: * 1 . 3 months. 2. patient needs KED (eGFR and uACR) to close 2024 Quality Gap. * HPI: E ndocrinology: 69 year old male presents with c/o Recent Blood Sugars P t sts he is does not check his BS at home much. C ardiology: He reports an episode of chest pain described more as a deep pressure sensation that radiated to his neck while sitting at the breakfast table last week. Symptoms resolved spontaneously. He has multiple cardiovascular risk factors. A nkle/Foot: He has had a painful knot on the back of his right heel for several weeks. Is starting to refer pain into his calf. He recalls no injury. * ROS: D ERMATOLOGY: no R kanika. [...] 1979. Alcohol: No. * Medications: T aking buPROPion HCl ER (SR) 150 MG Tablet Extended Release 12 Hour 1 tablet in the morning Orally twice a day , Taking Metoprolol Succinate ER 100 MG Tablet Extended Release 24 Hour 1 tablet Orally Once a day , Taking Vilazodone HCl 40 MG Tablet 1 tab(s) Orally Once a day , Taking Ventolin HFA 108 [...] Orally Three times a day , Taking Levothyroxine Sodium 50 MCG Tablet TAKE 1 TABLET BY MOUTH ONCE DAILY , Taking BD PEN NEEDLE 29G X1/2 (AUTOSHIELD) 1 TWO TIMES A DAY , Taking Tamsulosin HCl 0.4 MG Capsule 1 capsule Orally Once a day , Taking amLODIPine Besylate 5 MG Tablet 2 tabs Orally Once a day , Taking Atorvastatin Calcium 20 MG Tablet 1 tablet Orally Once a day , Taking Celecoxib 200 MG Capsule 1 capsule Orally Once a day , Taking Losartan Potassium 100 MG Tablet TAKE 1 TABLET BY MOUTH ONCE DAILY , Taking Lantus SoloStar 100 UNIT/ML Solution Pen-injector 30 units Subcutaneous once a day , Medication List reviewed and reconciled with the patient * Allergies: N .K.D.A. Objective: * Vitals: W t: 207, Temp: 98.7, BP: 140/78, HR: 66, O2 Sat: 97% on RA, Nurse: [facility], Ht: 67, BMI:32.42. * Examination: G eneral Examination: General Appearance: N AD. Affect is good today. N brad: s upple, no lymphadenopathy. H eart: R SR. L ungs: c lear to auscultation. A bdomen: o bese, soft, NT. E xtremities: n o leg edema. Note a slightly tender alicia prominence on the right posterior heel just lateral to midline.. Assessment: * Assessment: 1. C hest pain - R07.9 (Primary) 2 . F oot pain, right - M79.671 3 . D M type 2 with diabetic peripheral neuropathy - E11.42 4 . H ypertension, unspecified type - I10 5 . D epression with anxiety - F41.8 6. B enign prostatic hyperplasia with lower urinary tract symptoms - N40.1 ?7. D yslipidemia - E78.5 8 . A cquired hypothyroidism - E03.9 ? Plan: * Treatment: * Imaging: * I maging: X ray : Foot, right * Labs: * L ab: H-Lipid Panel L ab: H-PSA L ab: H-CMP L ab: H-TSH L ab: H-Glycohemoglobin A1C L ab: H-Microalbumine/Creatinine * Follow Up: a fter tests * Images: Billing Information: * Visit Code: 81374 Office Visit, Est Pt., Level 4. * Procedure Codes: * Electronic signature of Kitty Art MD on 06/16/2025 at 09:36 AM EDT Sign off status: Pending * Provider: Kitty Art M.D. Date: Generated for Randeei heydi/Rudy/eTransmitting on: 09:36 AM EDT History and Physical Notes * HPI (History of Present Illness) Category Sub-Category Detail Notes Category Not es Endocrinology Recent Blood Sugars Pt sts he is does not check his BS at home much Examination Category Sub-Category Detail Notes Category Not es General Examination Heart: RSR Lungs: clear to auscultatio n Abdomen: obese, soft, NT Extremities: no leg edema. Note a slightly tender alicia prominence on the right posterior heel just lateral to midline. General Appearance: NAD. Affect is good today Neck: supple, no lymphaden opathy
--- NOTE | 2025-06-16 09:36 | XR_ITS ---
FINAL REPORT CLINICAL HISTORY: ATTN CALCANEUS, PAIN states hard knot on back of heel FINDINGS: AP, oblique and lateral views of the right foot were obtained. There is no prior exam for comparison. There is no acute fracture or dislocation. There are calcifications of the distal Achilles tendon along the posterior calcaneus. Calcification along the medial aspect of the head of the 1st metatarsal is of uncertain etiology and could be within a ligament. Gout is felt unlikely but not entirely excluded. The joint spaces are preserved. IMPRESSION: No acute osseous abnormality of the right foot. Distal Achilles tendon calcification likely accounting for palpable abnormality. Calcification adjacent to the head of the 1st metatarsal is nonspecific. Recommend clinical correlation. Reviewed, Interpreted and Dictated by Rubi Brown MD Transcribed by Iesha Ospina Authenticated and [facility]
--- OUTSIDE RECORDS SUMMARY | 2025-06-16 09:36 | XMS_ITS | Clinical Summary ---
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 buPROPion (WELLBUTRIN SR) 150 mg Oral tablet sustained-releas e 12 hrIndications:De pression, major, single episode, moderate (HCC) Take 1 Tab by mouth 2 times daily. 60 Tab 3 08/04/2018 Active TRINTELLIX 20 mg Oral tabletIndication s:Depression, major, single episode, moderate (HCC) TAKE 1 TAB BY MOUTH DAILY. 30 Tab 12/07/2018 Active Active Problems No known active problems Social History Tobacco Use Types Packs/Day Years Used Date Smoking Tobacco: Never Assessed Sex and Gender Information Value Date Recorded Sex Assigned at Not on file Legal Sex Male 3:55 PM EST Gender Identity Not on file Sexual Orientation Not on file Plan of Treatment Health Maintenance Due Date Last Done Comments Wellness Exam Medicare 1960 Hepatitis C Screening 1975 DTaP/TDaP/Td (1 - Tdap) 1976 Cologuard 2002 Colon Cancer Screening 2002 Colonoscopy 2002 FIT 2002 Sigmoidoscopy 2002 Virtual Colonography 2002 Pneumococcal Vaccine 50+ (1 of 1 - PCV) 2007 Zoster (1 of 2) 2007 COVID-19 Vaccine ( - 2023-2 5 season) 2025 Influenza Vaccine (#1) 2025 Hepatitis B Vaccine Aged Out No longe r eligible based on patient's age to complete this topic Meningococcal B Vaccine Aged Out No l onger eligible based on patient's age to complete this topic Insurance MEDICARE [place] PART A AND B Member Subscriber Plan / Payer (Ef fective 2016-Present) Name:David Yarbrough Member ID:[id number] Relation to Subscriber:Self Name:DAVID YARBROUGH Subscriber ID:[id number] Payer ID:Not on file Group ID:Not on file Type:Not on file Address: [address] [id number]
--- OUTSIDE RECORDS SUMMARY | 2025-06-16 09:36 | XMS_ITS ---
Author Organization Unknown Vital Signs BpStanding BpSitting BpSupine Date Temperature HeartRate Weight Hei ght Spo2 Respiration Bmi HeadCircumference FieldCount TimeRecorded NeckCircumferen ce WaistCircumference Pulse Custom 132/84 02/21 00:00 :00 98.2 65 208,9.6 0 5,7 32.6 7 6 05/13/2025 09:15:00 130/90 01/26 00:00 :00 98.3 67 209,12. 80 5,7 32.8 6 6 05/13/2025 15:00:00 126/86 10/27 00:00 :00 98.3 63 208,9.6 0 5,7 32.6 7 6 05/13/2025 11:15:00 146/88 07/21 00:00 :00 98.0 53 213,3.2 0 5,7 33.3 9 6 05/13/2025 09:30:00 150/90 05/24 00:00 :00 98.1 60 214,6.4 0 5,7 33.5 8 6 05/13/2025 14:45:00
--- OUTSIDE RECORDS SUMMARY | 2025-06-16 09:37 | XMS_ITS | Patient Health Record ---
[facility] Organization [facility] Address [address] [facility] [address] [facility] [address] [place] [id number] Care Team Providers [employer] Salesperson Name Role Phone Kitty Art Primary Care Provider [phone] [place] Unavailable [phone] Allergies No Known Allergies Results Component Value Reference Range Notes Glycohemoglobin A1c (in hous e) Reviewed date:07/25/2024 07:28:09 PM Interpretation:6.7% Performing Lab: Notes/Report: 6.7% glycohemoglobin 6.7% 5 - 6.5 % P-Comprehensive Metabolic Pa bernadette (CMP) Reviewed date:07/25/2024 07:28:09 PM Interpretation:gluc 140, Cr 1.34, gfr 58 Performing Lab: Notes/Report: Test performed by [facility] [address] [place] [address] , [address], [place] [address] Massimo Max MD, Recreation Facilities Supervisor CLIA: [id number] Sodium 140 135-145 mmol/L Potassium 3.8 3.5-5.3 [...] 169 Performing Lab: Notes/Report: Test performed by [facility], [address] , [facility], [place] [address] Masismo Max MD, Recreation Facilities Supervisor CLIA: [id number] Cholesterol 150 <200 mg/dL Triglycerides 169 <150 [...] ATPIII guidelines LDL/HDL Ratio 1.6 <3.3 Ratio _ LDL Cholesterol Patient History _ Test Date: 06/12/2022 LDL Results: 92 Units: mg/dL % Change: - - Test Date: 12/08/2023 LDL Results: 135 Units: mg/dL % Change: +46% - Test Date: 07/21/2024 LDL Results: 72 Units: mg/dL % Change: -46% _ P-TSH Reviewed date:07/25/2024 07:28:09 PM Interpretation:Normal Performing Lab: Notes/Report: Test performed by [facility] [address] [place] [address] , [address], [place] [address] Massimo Max MD, Recreation Facilities Supervisor CLIA: [id number] TSH 2.74 0.43-5.25 mU/L Urinalysis - Inhouse Reviewed date:01/27/2025 12:35:51 AM [...] 54 Performing Lab: Notes/Report: Test performed by [facility] [address] [place], [place] [address] [place] , [address], [place] [address] Massimo Max MD, Recreation Facilities Supervisor CLIA: [id number] Sodium 146 135-145 mmol/L Potassium 4.2 3.5-5.3 [...] 153 Performing Lab: Notes/Report: Test performed by [facility] [address] [place] [address] , [address], [place] [address] Massimo Max MD, Recreation Facilities Supervisor CLIA: [id number] Cholesterol 247 <200 mg/dL Triglycerides 237 <150 [...] Interpretation:Normal Performing Lab: Notes/Report: Test performed by [facility], [address] , [address], [place] [address] Massimo Max MD, Recreation Facilities Supervisor CLIA: [id number] TSH 2.81 0.43-5.25 mU/L TEN-stool panel Reviewed date:02/01/2025 04:52:32 PM Interpretation:REJECTED Performing Lab: Notes/Report: REJECTED Reason For Referral No Information Medications Medication SIG (Take, Route, Frequency, Duration) Notes Start Date End Date Status Vilazodone HCl 40 MG 1 tab(s) Orally Onc e a day Active Lantus SoloStar 100 UNIT/ML 30 units Sub cutaneous once a day; Duration: 90 days Active Metoprolol Succinate ER 100 MG 1 tablet Orally Once a day Active Losartan Potassium 100 MG TAKE 1 TABLET BY MOUTH ONCE DAILY; Duration: 90 Active Aspirin 81 MG 1 ORALLY ONCE DAILY Active Ventolin HFA 108 (90 Base) MCG/ACT 2 puff(s) inhaled every 6 hours prn wheezing 09/30/2019 Active amLODIPine Besylate 5 MG 2 tabs Orally O nce a day; Duration: 90 days 01/27/2025 Active Tamsulosin HCl 0.4 MG 1 capsule Orally O nce a day; Duration: 90 days Active buPROPion HCl ER (SR) 150 MG 1 tablet in the morning Orally twice a day; Duration: 90 days Active Celecoxib 200 MG 1 capsule Orally Onc e a day; Duration: 90 days 03/26/2025 Active Atorvastatin Calcium 20 MG 1 tablet Oral ly Once a day; Duration: 90 days Active Accu-Chek Roya Plus 1 TEST STRIP(S) FINGERSTICK TEST 2 TIMES A DAY; Duration: 30 DAYS 05/24/2020 Active LANCET - BID 05/24/2020 Active Omeprazole 40 MG TAKE 1 CAPSULE ONE T ANYA DAILY; Duration: 90 Active BD Pen Needle Short U/F 31 GUAGE X 5/16 INCH 1 Q DAY 05/13/2022 Active SITagliptin Phosphate 100 MG 1 tab(s) orally once a day Active traMADol HCl 50 MG 1 tab(s) Orally q6h prn pain 06/21/2024 Active Farxiga 10 MG 1 tablet Orally Once a day; Duration: 90 days Active buPROPion HCl ER (SR) 150 MG 1 tablet in the morning Orally Once a day Active Meclizine HCl 25 MG 1 tablet as needed O rally Two times a day 12/08/2023 Active Blood Glucose Test Strips 333 - 1 strip In Vitro Three times a day 02/24/2024 Active glucometer - Use meter to test 3 times a day 02/24/2024 Active Levothyroxine Sodium 50 MCG TAKE 1 TABLE T BY MOUTH ONCE DAILY; Duration: 90 Active Gabapentin 100 MG 2 capsule Orally Thr ee times a day 01/19/2025 Active BD PEN NEEDLE 29G X1/2 (AUTOSHIELD) 1 TWO TIMES A DAY; Duration: 90 DAYS Active Immunizations Vaccine Route Administration Date Status Comme nts COVID 19 Pfizer Unknown 05/13/2021 Administered COVID 19 Pfizer Unknown 06/08/2021 Administered PNEUMOVAX 23 VACCINE IM Intramuscular 11/25/2018 Administe red PNEUMOVAX 23 VACCINE Unknown 11/25/2018 Administered Prevnar (PCV20) IM Intramuscular 12/08/2023 Administered Tetanus Tdap-Adacel (over 7yrs) IM Intramuscular 09/30/2018 Administered Tetanus Tdap-Adacel (over 7yrs) Unknown 09/30/2018 Administered Problems Problem Type SNOMED Code ICD Code Onset Dates Problem Status W/U Status Risk Notes Problem Type II diabetes mellitus without complication (214488079) Type 2 diabetes mellitus without complications (E11.9) Active confirmed Problem Cervicalgia (25490072) Cervicalgia (M54.2) Active confirmed Problem Mixed anxiety and depressive disorder (525813190) Depression with anxiety (F41.8) Active confirmed Problem BMI 30+ - obesity (988091902) BMI 32.0-32.9,adult (Z68.32) Active confirmed Problem Thyromegaly (7874364) Thyromegaly (E04.9) Active confirmed Problem Peripheral neuropathy (575999849) Peripheral neuropathy (G62.9) Active confirmed Problem Insomnia (133084449) Other insomnia (G47.09) Active confirmed Problem Long-term current use of insulin (510373388) 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.4) Active confirmed Problem Gastroesophageal reflux disease without esophagitis (531062387) Gastroesophageal reflux disease without esophagitis (K21.9) Active confirmed Problem Acquired hypothyroidism (322879159) Acquired hypothyroidism (E03.9) Active confirmed Problem Depression (126096816) Depression (F32.9) Active confirmed Problem Irritable bowel syndrome (32945442) Irritable bowel syndrome (K58.9) Active confirmed Problem Body mass index 30.00 to 34.99 (377190063377112) BMI 34.0-34.9,adult (Z68.34) Active confirmed Problem Dyslipidemia (491256372) Dyslipidemia (E78.5) Active confirmed Problem Tinnitus (72808675) Tinnitus (H93.19) Active co nfirmed Problem Lower urinary tract symptoms due to benign prostatic hypertrophy (90455645265000) Benign prostatic hyperplasia with lower urinary tract symptoms (N40.1) Active confirmed Problem Essential hypertension (48168862) Hypertension, unspecified type (I10) Active confirmed Problem Hyperglycemia due to type 2 diabetes mellitus (297142427339915) Uncontrolled type 2 diabetes mellitus with hyperglycemia (E11.65) Active confirmed Problem Cervical arthritis (disorder) (473564567) Arthritis of neck (M47.812) Active confirmed Problem Hyperglycemic hyperosmolar nonketotic coma (E11.01) Active confirmed Problem Polyneuropathy due to type 2 diabetes mellitus (806924925) 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 Vital Signs Heart Rate 66 /min 06/15/2025 Blood pressure diastolic 78 mm Hg 06/15/2025 Height 67 in 06/15/2025 Blood pressure systolic 140 mm Hg 06/15/2025 Weight 207 lbs 06/15/2025 BMI 32.42 kg/m2 06/15/2025 Encounters Encounter Location Date Provider Diagnosis [facility] [address] [facility] [address] [place] [id number] 07/21/2024 Kitty Art Cervicalgia M54.2 ; Arthritis of neck M47.812 ; Depression with anxiety F41.8 ; Acquired hypothyroidism E03.9 ; Peripheral neuropathy G62.9 ; Type 2 diabetes mellitus without complications E11.9 ; Dyslipidemia E78.5 ; Benign prostatic hyperplasia with lower urinary tract symptoms N40.1 and Hypertension, unspecified type I10 [facility] [address] [facility] [address] [place] [id number] 10/27/2024 Kitty Art Adult general medica l examination Z00.00 ; Cervicalgia M54.2 ; Arthritis of neck M47.812 ; Depression with anxiety F41.8 ; Acquired hypothyroidism E03.9 ; Peripheral neuropathy G62.9 ; Type 2 diabetes mellitus without complications E11.9 ; Dyslipidemia E78.5 ; Benign prostatic hyperplasia with lower urinary tract symptoms N40.1 ; Hypertension, unspecified type I10 and BMI 32.0-32.9,adult Z68.32 [facility] [address] [place], [place] [id number] 01/26/[address] Crowjacob Type 2 diabetes viridiana itus without complications E11.9 ; Dyslipidemia E78.5 ; Acquired hypothyroidism E03.9 ; Hypertension, unspecified type I10 ; Chronic diarrhea K52.9 ; Dysuria R30.0 ; Depression F32.9 and BMI 32.0-32.9,adult Z68.32 [facility] [address] [place], [place] [id number] 01/27/[address] Gutierrezjacob Diarrhea R19.7 [facility] [address] [place], [place] [id number] 02/03/2025 R Hayes Art [facility] [address] [place], [place] [id number] 02/21/2025 R Hayes Art Depression F32.9 ; Irritable bowel syndrome K58.9 and Hypertension, unspecified type I10 [facility] [address] [place], [place] [id number] 06/15/2025 R Hayes Art Foot pain, right M79 .671 ; Chest pain R07.9 ; DM type 2 with diabetic peripheral neuropathy E11.42 ; Hypertension, unspecified type I10 ; Depression with anxiety F41.8 ; Benign prostatic hyperplasia with lower urinary tract symptoms N40.1 ; Dyslipidemia E78.5 and Acquired hypothyroidism E03.9 [facility] [address] [place], [place] [id number] 06/21/2024 R Hayes Art Chest wall contusion S20.219A [facility] [address] [place], [place] [id number] 07/25/2024 R Hayes Kaelyn [facility] [address] [place], [place] [id number] 09/19/2024 R Hayes Kaelyn Cervicalgia M54.2 [facility] [address] [place], [place] [id number] 12/15/2024 R Hayes Kaelyn [facility] [address] [place], [place] [id number] 01/16/2025 R Hayes Kaelyn [facility] [address] [place], [place] [id number] 01/19/2025 R Hayes Kaelyn Acquired hypothyroid ism E03.9 and Cervicalgia M54.2 [facility] [address] [place], [place] [id number] 01/19/2025 R Hayes Kaelyn [facility] [address] [place], [place] [id number] 01/27/[address] Crowdy Hypertension, unspecified type I10 [facility] [address] [place], [place] [id number] 01/27/2025 R Hayes Kaelyn [facility] [address] [place], [place] [id number] 02/03/2025 R Hayes Kaelyn [facility] [address] [place] [id number] 02/14/2025 R Hayes Kaelyn Hypertension, unspecified type I10 [facility] [address] [place], [place] [id number] 02/14/2025 R Hayes Kaelyn [facility] [address] [place] [id number] 02/14/2025 R Hayes Kaelyn [facility] [address] [place] [id number] 02/15/2025 R Hayes Kaelyn Cervicalgia M54.2 [facility] [address] [place] [id number] 02/15/2025 R Hayes Kaelyn [facility] [address] [place] [id number] 02/22/2025 R Hayes Kaelyn Hypertension, unspecified type I10 [facility] [address] [place] [id number] 02/24/2025 R Hayes Kaelyn [facility] [address] [place], [place] [id number] 02/27/2025 R Hayes Kaelyn [facility] [address] [place] [id number] 03/02/2025 R Hayes Kaelyn [facility] [address] [place] [id number] 03/13/2025 R Hayes Kaelyn [facility] [address] [place] [id number] 03/24/2025 R Hayes Kaelyn [facility] [address] [place], [place] [id number] 03/28/2025 R Hayes Kaelyn Assessments Encounter Date Diagnosis (ICD Code) Assessment Notes Treatment Notes Treatment Clinical Notes Section Notes 06/21/2024 Chest wall contusion (ICD-10 - S20.219A) 07/21/2024 Cervicalgia (ICD-10 - M54.2) 07/21/2024 Arthritis of neck (ICD-10 - M47.812) 09/19/2024 Cervicalgia (ICD-10 - M54.2) 10/27/2024 Cervicalgia (ICD-10 - M54.2) 10/27/2024 Adult general medical examination (ICD-10 - Z00.00) Patient instructed to return to office Annually for Annual Wellness Visits to include annual screenings of Pain assessment, Functional Ability assessment, Cognitive Ability assessment, Fall Risk assessment, Depression screening and Bladder control screening. 01/19/2025 Acquired hypothyroidism (ICD-10 - E03.9) 01/26/2025 Type 2 diabetes mellitus without complications (ICD-10 - E11.9) 01/26/2025 Dyslipidemia (ICD-10 - E78.5) 01/27/2025 Hypertension, unspecified type (ICD-10 - I10) 01/27/2025 Diarrhea (ICD-10 - R19.7) 02/14/2025 Hypertension, unspecified type (ICD-10 - I10) 02/15/2025 Cervicalgia (ICD-10 - M54.2) 02/21/2025 Depression (ICD-10 - F32.9) 02/21/2025 Irritable bowel syndrome (ICD-10 - K58.9) Symptoms are fairly mild at present. Discussed referral for colonoscopy but he declines. He has had no red flag symptoms but will let me know if he notices blood in his stool, fever, or weight loss. 02/22/2025 Hypertension, unspecified type (ICD-10 - I10) 06/15/2025 Chest pain (ICD-10 - R07.9) 06/15/2025 Foot pain, right (ICD-10 - M79.671) 06/15/2025 DM type 2 with diabetic peripheral neuropathy (ICD-10 - E11.42) 02/21/2025 Hypertension, unspecified type (ICD-10 - I10) 01/26/2025 Acquired hypothyroidism (ICD-10 - E03.9) 10/27/2024 Arthritis of neck (ICD-10 - M47.812) 01/19/2025 Cervicalgia (ICD-10 - M54.2) 07/21/2024 Depression with anxiety (ICD-10 - F41.8) 07/21/2024 Acquired hypothyroidism (ICD-10 - E03.9) 10/27/2024 Depression with anxiety (ICD-10 - F41.8) 01/26/2025 Hypertension, unspecified type (ICD-10 - I10) Will monitor BP at home and f/u in the office with a BP log 06/15/2025 Hypertension, unspecified type (ICD-10 - I10) 06/15/2025 Depression with anxiety (ICD-10 - F41.8) 01/26/2025 Chronic diarrhea (ICD-10 - K52.9) He is going to get a stool sample so we can do a TEN diarrhea panel. 10/27/2024 Acquired hypothyroidism (ICD-10 - E03.9) 07/21/2024 Peripheral neuropathy (ICD-10 - G62.9) 07/21/2024 Type 2 diabetes mellitus without complications (ICD-10 - E11.9) 10/27/2024 Peripheral neuropathy (ICD-10 - G62.9) 01/26/2025 Dysuria (ICD-10 - R30.0) 06/15/2025 Benign prostatic hyperplasia with lower urinary tract symptoms (ICD-10 - N40.1) 06/15/2025 Dyslipidemia (ICD-10 - E78.5) 01/26/2025 Depression (ICD-10 - F32.9) 10/27/2024 Type 2 diabetes mellitus without complications (ICD-10 - E11.9) 07/21/2024 Dyslipidemia (ICD-10 - E78.5) 07/21/2024 Benign prostatic hyperplasia with lower urinary tract symptoms (ICD-10 - N40.1) 10/27/2024 Dyslipidemia (ICD-10 - E78.5) 01/26/2025 BMI 32.0-32.9,adult (ICD-10 - Z68.32) 06/15/2025 Acquired hypothyroidism (ICD-10 - E03.9) 10/27/2024 Benign prostatic hyperplasia with lower urinary tract symptoms (ICD-10 - N40.1) 07/21/2024 Hypertension, unspecified type (ICD-10 - I10) 10/27/2024 Hypertension, unspecified type (ICD-10 - I10) 10/27/2024 BMI 32.0-32.9,adult (ICD-10 - Z68.32) Plan Of Treatment Pending Test Test Name Order Date X ray : Foot, right 06/15/2025 Stress Test. cardiac Routine 06/15/2025 H-TSH 06/15/2025 H-Microalbumine/Creatinine 06/15/2025 H-Lipid Panel 06/15/2025 H-CMP 06/15/2025 H-Glycohemoglobin A1C 06/15/2025 H-PSA 06/15/2025 P-Comprehensive Metabolic Panel (CMP) P-Microalbumin/Creatinine, Random Urine Sample 06/15/2025 Next Appt Details Provider Name:Kitty Polanco 09/19/2025 10:00:00 AM, [address], [place], [place], [id number], Insurance Providers Payer Name Payer Address Payer Phone Subscriber Number Group Number Insured Name Patient Relationship to Insured Coverage Start Date Coverage End Date [employer] (MEDICAR E) [address] [address] [place] [address] [id number] YULISSA YARBROUGH Self - patient is the insured Medical (General) History Medical History History ICD Code HTN HLP Type 2 DM, insulin dependent Depression sleep disturbances kidney stones Closed head injury Rheumatic fever as a child? Lumbar Disc Disease GERD Traumatic injury left eye Declines immunizations 05/2023 Declines colon cancer screening 05/2023 Surgical History Surgery Date(Month/Year) appendectomy 1968 low back surgery 1989' ruptured umbilical hernia Left fifth digit on hand stitched back o n right cataract 2020 Hospitalization History Reason Date(Month/Year) H- Hyperosmolar hyperglycemia 08/2019
[2025-06-16 10:13] LABS: Hemoglobin A1C 5.5 % (4.0-6.0)
[2025-06-16 10:49] LABS: Albumin Level 4.0 g/dl (3.5-5.0); Chloride 102 mmol/L (98-107); Sodium 141 mmol/L (136-145)
[2025-06-16 10:50] LABS: Potassium 4.3 mmoL/L (3.5-5.1)
[2025-06-16 10:52] LABS: Alanine Aminotransferase 42 U/L (12-78); Albumin/Globulin Ratio 1.5 (1.1-1.8); Alkaline Phosphatase 66 U/L (38-126); Anion Gap 12.3 mEq/L (5-15); Aspartate Amino Transferase 32 U/L (17-59); Bilirubin,Total 0.8 mg/dl (0.2-1.3); Blood Urea Nitrogen 16 mg/dl (9-20); Calcium 8.9 mg/dl (8.4-10.2); Carbon Dioxide 31 mmol/L (22.0-30.0); Cholesterol 248 mg/dl (140-200); Creatinine,Serum 1.10 mg/dl (0.66-1.25); Estimated Glomerular Filt Rate 67 ml/min (>60); GFR (African American) 81 ML/MIN (>60); Globulin 2.7 g/dL (1.3-3.2); Glucose 113 mg/dl (74-100); Total Protein,Serum 6.7 g/dl (6.3-8.2); Triglycerides 242 mg/dl (30-150)
[2025-06-16 10:53] LABS: HDL Cholesterol 46 mg/dl (40-60)
[2025-06-16 11:27] LABS: Thyroid Stimulating Hormone 2.22 uIU/mL (0.465-4.68)
== END 2025-06-16 23:59 | disposition home or self-care (01) ==
LOC: LAB 09:27
PROVIDERS: PCP Family Medicine; Visit Provider Family Medicine
DX: E03.9 Hypothyroidism, unspecified (principal); I10 Essential (primary) hypertension; E11.9 Type 2 diabetes mellitus without complications; E78.5 Hyperlipidemia, unspecified; M79.671 Pain in right foot; Z12.5 Encounter for screening for malignant neoplasm of prostate; R93.6 Abnormal findings on diagnostic imaging of limbs
CPT/HCPCS: 36415; 73630; 80053; 80061; 82043; 82570; 83036; 84443; 87086; G0103

== ENCOUNTER 2025-06-27 10:01 | Outpatient (CLI) | payer MEDICARE, SELFPAY ==
--- OUTSIDE RECORDS SUMMARY | 2024-04-19 12:00 | XMS_ITS ---
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 Name Role Phone Kitty Art Primary Care Provider [phone] Allergies No Known Allergies REASON FOR VISIT [...] day; Duration: 90 days Active Vital Signs Weight 216 lbs 04/19/2024 Blood pressure systolic 134 mm Hg 04/19/20 24 Blood pressure diastolic 90 mm Hg 024 Heart Rate 67 /min 04/19/2024 Height 67 in 04/19/2024 BMI 33.83 kg/m2 04/19/2024 Encounters Encounter Location Date Provider Diagnosis [facility] [address] [place], [place] [phone] 04/19/2024 R Hayes Art Cervicalgia M54.2 ; [...] Appt Details Follow Up: 3 Months with [facility] ting labs, Reason: Provider Name:Kitty Polanco, 09/19/2025 10:00:00 AM, [address] [facility], [address] , [place], [place], [id number], Progress Notes * YULISSA YARBROUGH DDOB:1955 (69 yo M)Acc No.[id number]:04/19/2024 Progress Notes Patient: YULISSA MARKS Provider: Kitty Art M.D. :1955 A ge:68 Y S ex:Male Date:04/19/2024 Address:[address] [place], [place] [address] [id number] Subjective: * Chief Complaints: * 1 . [...] * Images: Billing Information: * Visit Code: 15265 Office Visit, Est Pt., Level 3. * Procedure Codes: * Electronic signature of Kitty Art MD on 06/27/2025 at 10:22 AM EDT Sign off status: Pending * Provider: Kitty Art M.D. Date: 0 04/19/2024 Generated for Mahsa soliz/Rudy/Faustinosmitting on: 1 10:22 AM EDT History and Physical Notes * [...]
--- OUTSIDE RECORDS SUMMARY | 2024-05-24 10:45 | XMS_ITS ---
Author Organization [facility] Address [address] [facility] [address] [place] [id number] Care Team Providers Care Typing Teacher Name Role Phone Kitty Art Primary Care Provider [phone] Allergies No Known Allergies REASON FOR VISIT [...] times a day 02/24/2024 Active Vital Signs Weight 214.4 lbs 05/24/2024 Blood pressure systolic 150 mm Hg 05/24/20 24 Blood pressure diastolic 90 mm Hg 024 Heart Rate 60 /min 05/24/2024 Height 67 in 05/24/2024 BMI 33.58 kg/m2 05/24/2024 Encounters Encounter Location Date Provider Diagnosis [facility] [address] [facility] [address] [place] [phone] 05/24/2024 R Hayes Art Cervical strain S16.1XXA [...] [address], [address], [place], [place], [id number], Progress Notes * YULISSA YARBROUGH DDOB:1955 (69 yo M)Acc No.[id number]:05/24/2024 Progress Notes Patient: YULISSA MARKS Provider: Kitty Art M.D. :1955 A ge:68 Y S ex:Male Date:05/24/2024 Address:[address] [place] [address] PAOLO [address]EROME [id number] Subjective: * Chief Complaints: * 1 . Bruise on head mower flipped on him. 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 He had no loss [...] * Images: Billing Information: * Visit Code: 98552 Office Visit, Est Pt., Level 3. * Procedure Codes: * Electronic signature of Kitty Art MD on 06/27/2025 at 10:23 AM EDT Sign off status: Pending * Provider: Kitty Art M.D. Date: 0 05/24/2024 Generated for Mahsa soliz/Rudy/Faustinosmitting on: 1 10:23 AM EDT History and Physical Notes * [...]
--- OUTSIDE RECORDS SUMMARY | 2024-06-02 05:30 | XMS_ITS ---
Author Organization [facility] Address [address] [place] [id number] Care Team Providers Care Senior Product Analyst Name Role Phone Kitty Art Primary Care Provider REASON FOR VISIT 6 month follow up Encounters Encounter Location Date Provider Diagnosis [facility] [address] [place] [phone] 06/02/2024 Kitty Art Plan Of Treatment Next Appt Details Provider Name:Kitty Polanco, 09/19/2025 10:00:00 AM, [address], [address], [place], [phone], Progress Notes * YULISSA YARBROUGH DDOB:1955 (69 yo M)Acc No.[id number]:06/02/2024 Progress Notes Patient: Ric GRACIEEraYULISSA Provider: Kitty Art M.D. :1955 A ge:68 Y S ex:Male Date:06/02/2024 Address:[address], [id number] Subjective: * Chief Complaints: * 1 . 6 month follow up. * Medical History: Objective: * Vitals: Assessment: Plan: * Treatment: * Images: Billing Information: * Visit Code: * Procedure Codes: * Electronic signature of Kitty Art MD on 06/27/2025 at 10:24 AM EDT Sign off status: Pending * Provider: Kitty Art M.D. Date: 1 Generated for Mahsa soliz/Rudy/Thomas on: 10:24 AM EDT
--- OUTSIDE RECORDS SUMMARY | 2024-07-21 05:30 | XMS_ITS ---
Author Organization [facility] Address [address] [place] [phone] Care Team Providers Care Pilot Supervisor Name Role Phone Kitty Art Primary Care Provider Allergies No Known Allergies Results Component Value Reference Range Notes Glycohemoglobin A1c (in hous e) Reviewed date:07/25/2024 07:28:09 PM Interpretation:6.7% Performing Lab: Notes/Report: 6.7% glycohemoglobin 6.7% 5 - 6.5 % P-Comprehensive Metabolic Pa bernadette (CMP) Reviewed date:07/25/2024 07:28:09 PM Interpretation:gluc 140, Cr 1.34, gfr 58 Performing Lab: Notes/Report: Test performed by [facility] [address] [place] [address] , [address], [place] [address] Massimo Max MD, Prosthetic Lab Technician CLIA: [id number] Sodium 140 135-145 mmol/L Potassium 3.8 3.5-5.3 mmol/L Chloride 102 97-108 mmol/L CO2 28 22-32 mmol/L Glucose 140 65-99 mg/dL BUN 17 8-23 mg/dL Creatinine 1.34 0.70-1.30 mg/dL Calcium 9.3 8.6-10.4 mg/dL eGFR by Creatinine 58 >59 mL/min/1.73m2 Protein 6.4 6.0-8.3 g/dL Albumin 4.0 3.5-5.3 g/dL Alkaline Phosphatase 65 40-129 IU/L ALT (SGPT) 31 <5-55 IU/L AST (SGOT) 27 <5-46 IU/L Bilirubin, Total 0.8 <0.2-1.2 mg/dL A/G Ratio 1.7 1.1-2.5 P-Lipid Panel Reviewed date:07/25/2024 07:28:09 PM Interpretation:trigs 169 Performing Lab: Notes/Report: Test performed by [facility], [address] , [place] [address] Massimo Max MD, Prosthetic Lab Technician CLIA: [id number] Cholesterol 150 <200 mg/dL Triglycerides 169 <150 mg/dL HDL Cholesterol 44 >39 mg/dL Cholesterol / HDL Ratio 3.41 0.00-4.99 Ratio Non-HDL Cholesterol 106 <130 mg/dL LDL Cholesterol (Calculation) 72 <130 mg/dL LDL Cholesterol Levels* Less than 100 mg/dL Optimal 100 to 129 mg/dL Near Optimal/ Above Optimal 130 to 159 mg/dL Borderline High 160 to 189 mg/dL High 190 mg/dL and above Very High * Categories as recommended by the 2004 ATPIII guidelines LDL/HDL Ratio 1.6 <3.3 Ratio LDL Cholesterol Patient History Test Date: 06/12/2022 LDL Results: 92 Units: mg/dL % Change: - Test Date: 12/08/2023 LDL Results: 135 Units: mg/dL % Change: +46% Test Date: 07/21/2024 LDL Results: 72 Units: mg/dL % Change: -46% P-TSH Reviewed date:07/25/2024 07:28:09 PM Interpretation:Normal Performing Lab: Notes/Report: Test performed by [facility], [address] , [address], [place] [address] Massimo Max MD, Prosthetic Lab Technician CLIA: [id number] TSH 2.74 0.43-5.25 mU/L REASON FOR VISIT 3 Month Check Up w/ Fasting Labs, Needs colon cancer screening & flu vaccine Medications Medication SIG (Take, Route, Frequency, Duration) Notes Start Date End Date Status Viibryd 40 MG 1 tab(s) orally once a day Active Lantus SoloStar 100 UNIT/ML INJECT 30 UN ITS subcutaneously once daily Active Gabapentin 100 MG 2 capsule Orally Three times a day Active Levothyroxine Sodium 50 MCG 1 tab(s) ora lly once a day Active buPROPion HCl ER (SR) 150 MG 1 tablet in the morning Orally Once a day Active hydroCHLOROthiazide 12.5 MG TAKE 1 TABLE T EVERY DAY Active Losartan Potassium 100 MG 1 tab(s) orall y once a day Active Atorvastatin Calcium 40 MG 1 tab(s) Oral ly once a day Active Tamsulosin HCl 0.4 MG 1 cap(s) orally on ce a day Active Metoprolol Succinate ER 100 MG 1 tab(s) orally once a day Active Vraylar 1.5 MG 1 capsule Orally Onc e a day Not-Taking Clotrimazole-Betamethasone 1-0.05 % 1 will applied topically 2 times a day 11/08/2021 Not-Taking tiZANidine HCl 4 MG 1 tab(s) orally ever y 8 hours 05/24/2020 Not-Taking SITagliptin Phosphate 100 MG 1 tab(s) orally once a day Active Indomethacin 25 MG 1 cap(s) orally 3 times a day 05/24/2020 Not-Taking Tamsulosin HCl 0.4 MG TAKE 1 CAPSULE BY MOUTH ONCE DAILY; Duration: 90 Active buPROPion HCl ER (SR) 150 MG TAKE 1 TABLET BY MOUTH IN THE MORNING; Duration: 90 Active Viibryd 40 MG 1 tab(s) orally once a day; Duration: 90 days Active Metoprolol Succinate ER 100 MG 1 tab(s) orally once a day; Duration: 90 days Active traMADol HCl 50 MG 1 tab(s) Orally q6h prn pain 06/21/2024 Active Meclizine HCl 25 MG 1 tablet as needed Orally Two times a day 12/08/2023 Active Naproxen 500 MG 1 tab(s) orally 2 times a day Active glucometer - Use meter to test 3 times a day 02/24/2024 Active Blood Glucose Test Strips 333 - 1 strip In Vitro Three times a day 02/24/2024 Active Losartan Potassium 100 MG 1 tab(s) orall y once a day; Duration: 90 days Active BD Pen Needle Short U/F 31 GUAGE X 5/16 INCH 1 Q DAY 05/13/2022 Active BD PEN NEEDLE 29G X1/2 (AUTOSHIELD) 1 TWO TIMES A DAY; Duration: 90 DAYS 06/25/2022 Active Omeprazole 40 MG TAKE 1 CAPSULE ONE TIME DAILY; Duration: 90 Active hydroCHLOROthiazide 12.5 MG 1 tablet Ora lly Once a day; Duration: 90 days Active Farxiga 10 MG 1 tablet Orally Once a day; Duration: 90 days 05/24/2023 Active Ventolin HFA 108 (90 Base) MCG/ACT 2 puff(s) inhaled every 6 hours prn wheezing 09/30/2019 Active Aspirin 81 MG 1 ORALLY ONCE DAILY Active LANCET - BID 05/24/2020 Active Accu-Chek Roya Plus 1 TEST STRIP(S) FINGERSTICK TEST 2 TIMES A DAY; Duration: 30 DAYS 05/24/2020 Active Problems Problem Type SNOMED Code ICD Code Onset Dates Problem Status W/U Status Risk Notes Problem Cervicalgia (87497454) Cervicalgia (M54.2) Active confirmed Vital Signs Weight 213.2 lbs 07/21/2024 Blood pressure systolic 146 mm Hg 07/21/20 24 Blood pressure diastolic 88 mm Hg 024 Heart Rate 53 /min 07/21/2024 Height 67 in 07/21/2024 BMI 33.39 kg/m2 07/21/2024 Encounters Encounter [facility] Date [facility] [address] [place] [phone] 07/21/2024 R Hayes [place] Cervicalgia M54.2 ; Arthritis of neck M47.812 ; Depression with anxiety F41.8 ; Acquired hypothyroidism E03.9 ; Peripheral neuropathy G62.9 ; Type 2 diabetes mellitus without complications E11.9 ; Dyslipidemia E78.5 ; Benign prostatic hyperplasia with lower urinary tract symptoms N40.1 and Hypertension, unspecified type I10 Assessments Encounter Date Diagnosis (ICD Code) Assessment Notes Treatment Notes Treatment Clinical Notes Section Notes 07/21/2024 Cervicalgia (ICD-10 - M54.2) 07/21/2024 Arthritis of neck (ICD-10 - M47.812) 07/21/2024 Depression with anxiety (ICD-10 - F41.8) 07/21/2024 Acquired hypothyroidism (ICD-10 - E03.9) 07/21/2024 Peripheral neuropathy (ICD-10 - G62.9) 07/21/2024 Type 2 diabetes mellitus without complications (ICD-10 - E11.9) 07/21/2024 Dyslipidemia (ICD-10 - E78.5) 07/21/2024 Benign prostatic hyperplasia with lower urinary tract symptoms (ICD-10 - N40.1) 07/21/2024 Hypertension, unspecified type (ICD-10 - I10) Plan Of Treatment Medication Medication Name Sig Start Date Stop Date Notes Viibryd 40 MG 1 tab(s) orally once a day Lantus SoloStar 100 UNIT/ML INJECT 30 UN ITS subcutaneously once daily Gabapentin 100 MG 2 capsule Orally Thr ee times a day Levothyroxine Sodium 50 MCG 1 tab(s) orally once a day buPROPion HCl ER (SR) 150 MG 1 tablet in the morning Orally Once a day hydroCHLOROthiazide 12.5 MG TAKE 1 TABLET EVERY DAY Losartan Potassium 100 MG 1 tab(s) orally once a day Atorvastatin Calcium 40 MG 1 tab(s) Orally once a day Tamsulosin HCl 0.4 MG 1 cap(s) orally once a day Metoprolol Succinate ER 100 MG 1 tab(s) orally once a day SITagliptin Phosphate 100 MG 1 tab(s) orally once a day Next Appt Details Follow Up: 3 Months, Reason: Provider Name:Kitty Polanco, 09/19/2025 10:00:00 AM, [address], [place], [place], [phone], Progress Notes * LINNEA YULISSA DDOB:1955 (69 yo M)Acc No.[id number]:07/21/2024 Progress Notes Patient: YULISSA MARKS Provider: Kitty Art M.D. :1955 A ge:68 Y S ex:Male Date:07/21/2024 Address:[address] [place] [id number] Subjective: * Chief Complaints: * 1 . 3 Month Check Up w/ Fasting Labs. 2. Needs colon cancer screening & flu vaccine. * HPI: C ardiology: Blood Pressure Elevated P t presents today for a 3 month check up. Pt is fasting today. Pt sts that he needs some refills today. L ower back: c/o Low Back Pain P t c/o low back pain when standing in one spot for a period of time. H PI: Pt declines flu vaccine. E ndocrinology: He checks his blood sugar at home very rarely. Denies : Weight Gain. D enies : Weight Loss. D enies : Polyuria. * ROS: D ERMATOLOGY: no R kanika. [...] History: F ather: 84 yrs, diagnosed with Heart Disease, Stroke, Cancer, Hypertension. M other: 82 yrs, heart problems, diagnosed [...] tab(s) Orally once a day , Taking Lantus SoloStar [...] , Taking LANCET - BID , Taking Accu-Chek Roya Plus 1 TEST STRIP(S) FINGERSTICK TEST 2 TIMES A DAY , Taking BD Pen Needle Short U/F 31 GUAGE X 5/16 INCH 1 Q DAY , Taking BD PEN NEEDLE 29G X1/2 (AUTOSHIELD) 1 TWO TIMES A DAY , Taking Omeprazole 40 MG Capsule Delayed Release TAKE 1 CAPSULE ONE TIME DAILY , Taking hydroCHLOROthiazide 12.5 MG Tablet 1 tablet Orally Once a day , Taking Farxiga [...] tab(s) orally once a day , Taking traMADol HCl 50 MG Tablet 1 tab(s) Orally q6h prn pain , Taking Tamsulosin HCl 0.4 MG Capsule TAKE 1 CAPSULE BY MOUTH ONCE DAILY , Taking buPROPion HCl ER (SR) 150 MG Tablet Extended Release 12 Hour TAKE 1 TABLET BY MOUTH IN THE MORNING , Taking Viibryd 40 MG Tablet 1 tab(s) orally once a day , Taking Metoprolol Succinate ER 100 MG Tablet Extended Release 24 Hour 1 tab(s) orally once a day , Not-Taking Vraylar 1.5 MG Capsule 1 capsule Orally Once a day , Not-Taking Clotrimazole-Betamethasone 1- 0.05 % Cream 1 will applied topically 2 times a day , Not-Taking tiZANidine HCl 4 MG Tablet 1 tab(s) orally every 8 hours , Not-Taking Indomethacin 25 MG Capsule 1 cap(s) orally 3 times a day , Medication List reviewed and reconciled with the patient * Allergies: N .K.D.A. Objective: * Vitals: W t:213.2, Temp:98.0, BP:146/88, HR:53, Nurse:HALIMA, Ht: 67, BMI:33.39. * Examination: E NT/Respiratory: General Appearance: N AD. E yes: P ERRLA, sclera clear. E ars: a uditory canals normal bilaterally, TM's WNL. N ose : n ormal, no lesions, nares patent. O ral cavity : n o erythema or exudate seen on pharynx. N brad : n o cervical lymphadenopathy. H eart : R RR, normal S1 S2, no murmurs. L ungs: c lear to auscultation bilaterally. E xtremities : no edema. Assessment: * Assessment: 1. C ervicalgia - [...] once a day. 3. A cquired hypothyroidism Refill Levothyroxine Sodium Tablet, 50 MCG, 1 tab(s), orally, once a day, 90, Refills 1. L AB: P-TSH (Collection Date & Time - 07/21/2024 08:55 AM) N ormal Value Reference Range T SH 2.74 0.43-5.25 - mU/L * Kitty Art 07/25/2024 7:28:00 PM >See phone encounter 4.?Type 2 diabetes mellitus without complications? Continue SITagliptin Phosphate Tablet, 100 MG, 1 tab(s), orally, once a day;?Continue Lantus SoloStar Solution Pen-injector, 100 UNIT/ML, INJECT 30 UNITS, subcutaneously, once daily.?LAB: Glycohemoglobin A1c (in house) (Collection Date & Time - 07/21/2024)? 6.7%* Value Reference Range g lycohemoglobin 6.7% 5 - 6.5 % * Hazel aBrber 07/21/2024 10: 10:34 AM > Kitty Art 07/25/2024 7:28:00 PM >See phone encounter 5.?Dyslipidemia? Continue Atorvastatin Calcium Tablet, 40 MG, 1 tab(s), Orally, once a day.?LAB: P-Lipid Panel (Collection Date & Time - 07/21/2024 08:55 AM)?trigs 169 * Value Reference Range C holesterol / HDL Ratio 3.41 0.00-4.99 - Ratio * C holesterol 150 <200 - mg/dL * H DL Cholesterol 44 >39 - mg/dL * L DL Cholesterol (Calculation) 72 <130 - mg/d L * L DL/HDL Ratio 1.6 <3.3 - Ratio * N on-HDL Cholesterol 106 <130 - mg/dL * T riglycerides 169 H <150 - mg/dL * Kitty Art 07/25/2024 7:28:00 PM >See phone encounter 6.?Benign prostatic hyperplasia with lower urinary tract symptoms? Continue Tamsulosin HCl Capsule, 0.4 MG, 1 cap(s), orally, once a day.?? 7.?Hypertension, unspecified type? Continue hydroCHLOROthiazide Tablet, 12.5 MG, TAKE 1 TABLET EVERY DAY;?Continue Losartan Potassium Tablet, 100 MG, 1 tab(s), orally, once a day;?Continue Metoprolol Succinate ER Tablet Extended Release 24 Hour, 100 MG, 1 tab(s), orally, once a day.?LAB: P-Comprehensive Metabolic Panel (CMP) (Collection Date & Time - 07/21/2024 08:55 AM)?gluc 140, Cr 1.34, gfr 58* Value Reference Range A /G Ratio 1.7 1.1-2.5 - * A lbumin 4.0 3.5-5.3 - g/dL * A lkaline Phosphatase 65 40-129 - IU/L * A LT (SGPT) 31 <5-55 - IU/L * A ST (SGOT) 27 <5-46 - IU/L * B ilirubin, Total 0.8 <0.2-1.2 - mg/dL * B UN 17 8-23 - mg/dL * C alcium 9.3 8.6-10.4 - mg/dL * C hloride 102 97-108 - mmol/L * C O2 28 22-32 - mmol/L * C reatinine 1.34 H 0.70-1.30 - mg/dL * G lucose 140 H 65-99 - mg/dL * P otassium 3.8 3.5-5.3 - mmol/L * S odium 140 135-145 - mmol/L * P rotein 6.4 6.0-8.3 - g/dL * e GFR by Creatinine 58 L >59 - mL/min/1.73m2 * Kitty Art 07/25/2024 7:28:00 PM >See phone encounter * Procedure Codes: G 2211 Complex e/[place], [address] CAPILLARY BLOOD DRAW, 38577 GLYCATED HEMOGLOBIN TEST, Modifiers: QW * Follow Up: 3 Months * Images: Billing Information: * Visit Code: 58093 Office Visit, Est Pt., Level 4. * Procedure Codes: G2211 Complex e/[place]. [address] CAPILLARY BLOOD DRAW. 80886 GLYCATED HEMOGLOBIN TEST. Modifiers: QW * Electronic signature of Kitty Art MD on 06/27/2025 at 10:22 AM EDT Sign off status: Pending * Provider: Kitty Art M.D. Date: 09/20/2023 Generated for Randeei ng/Fagamalielg/eTransmitting on: 10:22 AM EDT History and Physical Notes * HPI (History of Present Illness) Category Sub-Category Detail Notes Category Not es Endocrinology Weight Gain Weight Loss Polyuria Cardiology Blood Pressure Elevated Pt prese nts today for a 3 month check up. Pt is fasting today. Pt sts that he needs some refills today Lower back Low Back Pain Pt c/o low back pain when standing in one spot for a period of time Examination Category Sub-Category Detail Notes Category Not es ENT/Respiratory Oral cavity : no erythema or exudate s een on pharynx Ears: auditory canals norm al bilaterally, TM's WNL Neck : no cervical lymphade nopathy Heart : RRR, normal S1 S2, n o murmurs Lungs: clear to auscultatio n bilaterally Extremities : no edema General Appearance: NAD Nose : normal, no lesions, nares patent Eyes: PERRLA, sclera clear
--- OUTSIDE RECORDS SUMMARY | 2024-10-27 07:15 | XMS_ITS ---
Author Organization [facility] Address [address] [id number] Care Team Providers Care Corporate Administrator Name Role Phone Kitty Art Primary Care Provider [phone] Allergies No Known Allergies REASON FOR VISIT 3 month check and AWV, Due for Diabetic Eye Exam Medications Medication SIG (Take, Route, Frequency, Duration) Notes Start Date End Date Status BD Pen Needle Short U/F 31 GUAGE X 5/16 INCH 1 Q DAY 05/13/2022 Active Accu-Chek Roya Plus 1 TEST STRIP(S) FINGERSTICK TEST 2 TIMES A DAY; Duration: 30 DAYS 05/24/2020 Active LANCET - BID 05/24/2020 Active Aspirin 81 MG 1 ORALLY ONCE DAILY Active Ventolin HFA 108 (90 Base) MCG/ACT 2 puff(s) inhaled every 6 hours prn wheezing 09/30/2019 Active Levothyroxine Sodium 50 MCG 1 tab(s) ora lly once a day Active Gabapentin 100 MG 2 capsule Orally Thr ee times a day Active Lantus SoloStar 100 UNIT/ML INJECT 30 UN ITS subcutaneously once daily Active Viibryd 40 MG 1 tab(s) orally once a day Active buPROPion HCl ER (SR) 150 MG 1 tablet in the morning Orally Once a day Active hydroCHLOROthiazide 12.5 MG TAKE 1 TABLET EVERY DAY Active Metoprolol Succinate ER 100 MG 1 tab(s) orally once a day Active Tamsulosin HCl 0.4 MG 1 cap(s) orally on ce a day Active Atorvastatin Calcium 40 MG 1 tab(s) Oral ly once a day Active Losartan Potassium 100 MG 1 tab(s) orall y once a day Active SITagliptin Phosphate 100 MG 1 tab(s) or ally once a day Active Tamsulosin HCl 0.4 MG TAKE 1 CAPSULE BY MOUTH ONCE DAILY; Duration: 90 Active buPROPion HCl ER (SR) 150 MG TAKE 1 TABL ET BY MOUTH IN THE MORNING; Duration: 90 days Active hydroCHLOROthiazide 12.5 MG 1 tablet Ora lly Once a day; Duration: 90 days Active Farxiga 10 MG 1 tablet Orally Once a day; Duration: 90 days Active Metoprolol Succinate ER 100 MG 1 tab(s) orally once a day; Duration: 90 days Active Viibryd 40 MG 1 tab(s) orally once a day; Duration: 90 days Active traMADol HCl 50 MG 1 tab(s) Orally q6h prn pain 06/21/2024 Active Losartan Potassium 100 MG 1 tab(s) orall y once a day; Duration: 90 days Active Lantus SoloStar 100 UNIT/ML INJECT 30 UN ITS SUBCUTANEOUSLY ONCE DAILY KEEP IN REFRIGERATOR; Duration: 50 Active Omeprazole 40 MG TAKE 1 CAPSULE ONE T ANYA DAILY; Duration: 90 Active Blood Glucose Test Strips 33 3 - 1 strip In Vitro Three times a day 02/24/2024 Active glucometer - Use meter to test 3 times a day 02/24/2024 Active Naproxen 500 MG 1 tab(s) orally 2 ti mes a day Active Meclizine HCl 25 MG 1 tablet as needed Orally Two times a day 12/08/2023 Active BD PEN NEEDLE 29G X1/2 (AUTOSHIELD) 1 TWO TIMES A DAY; Duration: 90 DAYS 06/25/2022 Active Vital Signs Weight 208.6 lbs 10/27/2024 Blood pressure systolic 126 mm Hg 10/27/19 25 Blood pressure diastolic 86 mm Hg 025 Heart Rate 63 /min 10/27/2024 Height 67 in 10/27/2024 BMI 32.67 kg/m2 10/27/2024 Encounters Encounter Location Date Provider Diagnosis [facility] [address] [id number] 10/27/2024 Kitty Art Adult general medica l examination Z00.00 ; Cervicalgia M54.2 ; Arthritis of neck M47.812 ; Depression with anxiety F41.8 ; Acquired hypothyroidism E03.9 ; Peripheral neuropathy G62.9 ; Type 2 diabetes mellitus without complications E11.9 ; Dyslipidemia E78.5 ; Benign prostatic hyperplasia with lower urinary tract symptoms N40.1 ; Hypertension, unspecified type I10 and BMI 32.0-32.9,adult Z68.32 Assessments Encounter Date Diagnosis (ICD Code) Assessment Notes Treatment Notes Treatment Clinical Notes Section Notes 10/27/2024 Adult general medical examination (ICD-10 - Z00.00) Patient instructed to return to office Annually for Annual Wellness Visits to include annual screenings of Pain assessment, Functional Ability assessment, Cognitive Ability assessment, Fall Risk assessment, Depression screening and Bladder control screening. 10/27/2024 Cervicalgia (ICD-10 - M54.2) 10/27/2024 Arthritis of neck (ICD-10 - M47.812) 10/27/2024 Depression with anxiety (ICD-10 - F41.8) 10/27/2024 Acquired hypothyroidism (ICD-10 - E03.9) 10/27/2024 Peripheral neuropathy (ICD-10 - G62.9) 10/27/2024 Type 2 diabetes mellitus without complications (ICD-10 - E11.9) 10/27/2024 Dyslipidemia (ICD-10 - E78.5) 10/27/2024 Benign prostatic hyperplasia with lower urinary tract symptoms (ICD-10 - N40.1) 10/27/2024 Hypertension, unspecified type (ICD-10 - I10) 10/27/2024 BMI 32.0-32.9,adult (ICD-10 - Z68.32) Plan Of Treatment Medication Medication Name Sig Start Date Stop Date Notes Levothyroxine Sodium 50 MCG 1 tab(s) orally once a day Gabapentin 100 MG 2 capsule Orally Thr ee times a day Lantus SoloStar 100 UNIT/ML INJECT 30 UN ITS subcutaneously once daily Viibryd 40 MG 1 tab(s) orally once a day buPROPion HCl ER (SR) 150 MG 1 tablet in the morning Orally Once a day hydroCHLOROthiazide 12.5 MG TAKE 1 TABLET EVERY DAY Metoprolol Succinate ER 100 MG 1 tab(s) orally once a day Tamsulosin HCl 0.4 MG 1 cap(s) orally once a day Atorvastatin Calcium 40 MG 1 tab(s) Orally once a day Losartan Potassium 100 MG 1 tab(s) orally once a day SITagliptin Phosphate 100 MG 1 tab(s) orally once a day Treatment Notes Assessment Notes Adult general medical examination Patien t instructed to return to office Annually for Annual Wellness Visits to include annual screenings of Pain assessment, Functional Ability assessment, Cognitive Ability assessment, Fall Risk assessment, Depression screening and Bladder control screening. Next Appt Details Follow Up: 3 Months with lab s, Reason: Provider Name:Kitty Polanco, 09/19/2025 10:00:00 AM, [address], [address], [place], [place], [phone], Progress Notes * LINNEA YULISSA DDOB:1955 (69 yo M)Acc No.[id number]:10/27/2024 Annual Wellness Visit Patient: YULISSA MARKS Provider: Kitty Art M.D. :1955 A ge:69 Y S ex:Male Date:10/27/2024 Address:[address] [place] [address], [place] [id number] Subjective: * Chief Complaints: * 1 . 3 month check and AWV. 2. Due for Diabetic Eye Exam. * HPI: H PI: Patient is here today for a scheduled 3 month check up and a Medicare Annual Wellness Visit.. E ndocrinology: Denies : Nocturia. D enies : Polyuria. D enies : Blurred Vision. R heumatology: Ongoing neck and low back pain related to osteoarthritis. * ROS: O PTHALMOLOGY: Negative for d enies vision issues. * Medical History: H [place], HLP, Type [...] 1979. Alcohol: No. * Medications: T aking Ventolin HFA 108 (90 Base) MCG/ACT Aerosol [...] 1 CAPSULE ONE TIME DAILY , Taking Meclizine HCl 25 MG Tablet [...] tab(s) Orally q6h prn pain , Taking Viibryd 40 MG Tablet 1 tab(s) orally once a day , Taking Metoprolol Succinate ER 100 MG Tablet Extended Release 24 Hour 1 tab(s) orally once a day , Taking SITagliptin Phosphate 100 MG Tablet 1 tab(s) orally once a day , Taking Losartan Potassium 100 MG Tablet 1 tab(s) orally once a day , Taking Atorvastatin Calcium 40 MG Tablet 1 tab(s) Orally once a day , Taking Metoprolol Succinate ER 100 MG Tablet Extended Release 24 Hour 1 tab(s) orally once a day , Taking Viibryd 40 MG Tablet 1 tab(s) orally once a day , Taking Levothyroxine Sodium 50 MCG Tablet 1 tab(s) orally once a day , Taking Lantus SoloStar 100 UNIT/ML Solution Pen-injector INJECT 30 UNITS SUBCUTANEOUSLY ONCE DAILY KEEP IN REFRIGERATOR , Taking Farxiga 10 MG Tablet 1 tablet Orally Once a day , Taking hydroCHLOROthiazide 12.5 MG Tablet 1 tablet Orally Once a day , Taking buPROPion HCl ER (SR) 150 MG Tablet Extended Release 12 Hour TAKE 1 TABLET BY MOUTH IN THE MORNING , Taking Tamsulosin HCl 0.4 MG Capsule TAKE 1 CAPSULE BY MOUTH ONCE DAILY , Taking Gabapentin 100 MG Capsule 2 capsule Orally Three times a day , Medication List reviewed and reconciled with the patient * Allergies: N .K.D.A. Objective: * Vitals: W t:208.6, Temp:98.3, BP:126/86, HR:63, O2 Sat:94% on RA, Nurse:jordy, Ht: 67, BMI:32.67. * Examination: G eneral Examination: General Appearance: N AD. N brad: s upple, no lymphadenopathy. H eart: R SR. L ungs: c lear to auscultation. E xtremities: n o leg edema. * Physical Examination: G ENERAL: Pain Assessment: P ain level: 6-7, on a scale of 0-10 (with 10 being extreme pain). F unctional Status Assessment: P atient response to question of how often physical health interferes with daily activities: . Occasionally Able to perform ADLs-including meal preparation, grocery shopping, housework, laundry, taking medications or handling finances. Cognitive Status: alert and oriented. Ambulation Status: Fully ambulatory . F all Risk Assessment: I ndependant in ambulation, adequate lighting in home. Patient has fallen or had trouble walking within the past 12 months. D epression Screening: D enies depressed mood or anxiety. Describes emotional health as: positive. B ladder Control Screening: s ignificant p jessica. Assessment: * Assessment: 1. A dult general medical examination - Z00.00 (Primary) 2 . C ervicalgia - M54.2 3 . A rthritis of neck - M47.812 4 . D epression with anxiety - F41.8 5 . A cquired hypothyroidism - E03.9 6 . P eripheral neuropathy - G62.9 7 . T ype 2 diabetes mellitus without complications - E11.9 8 . D yslipidemia - E78.5 9 . B enign prostatic hyperplasia with lower urinary tract symptoms - N40.1 1 0. H ypertension, unspecified type - I10 1 1. B HI 32.0-32.9,adult - Z68.32 Plan: * Treatment: 2. C ervicalgia Continue Gabapentin Capsule, 100 MG, 2 capsule, Orally, Three times a day. 3. D epression with anxiety Continue buPROPion HCl ER (SR) Tablet Extended Release 12 Hour, 150 MG, 1 tablet in the morning, Orally, Once a day; C ontinue Viibryd Tablet, 40 MG, 1 tab(s), orally, once a day. 4. A cquired hypothyroidism Refill Levothyroxine Sodium Tablet, 50 MCG, 1 tab(s), orally, once a day, 90, Refills 1. 5. T ype 2 diabetes mellitus without complications Continue SITagliptin Phosphate Tablet, 100 MG, 1 tab(s), orally, once a day; C ontinue Lantus SoloStar Solution Pen-injector, 100 UNIT/ML, INJECT 30 UNITS, subcutaneously, once daily. 6. D yslipidemia Continue Atorvastatin Calcium Tablet, 40 MG, 1 tab(s), Orally, once a day. 7. B enign prostatic hyperplasia with lower urinary tract symptoms Continue Tamsulosin HCl Capsule, 0.4 MG, 1 cap(s), orally, once a day. 8. H ypertension, unspecified type Continue hydroCHLOROthiazide Tablet, 12.5 MG, TAKE 1 TABLET EVERY DAY; C ontinue Losartan Potassium Tablet, 100 MG, 1 tab(s), orally, once a day; C ontinue Metoprolol Succinate ER Tablet Extended Release 24 Hour, 100 MG, 1 tab(s), orally, once a day. * Procedure Codes: G 0439 ANNUAL WELLNESS VST; PPS SUBSQT VST, G0444 ANNUAL DEPRESSION SCREENING 15 MIN, 1090F PRES/ABSN URINE INCON ASSESS, 3288F FALL RISK ASSESSMENT DOCD, 1170F FXNL STATUS ASSESSED, 1159F MED LIST DOCD IN RCRD, 1003F LEVEL OF ACTIVITY ASSESS, 1036F TOBACCO NON-USER, 4040F PNEUMOC IMM ORDER/ADMIN, G2211 Complex e/m visit add on, 1125F AMNT PAIN NOTED PAIN PRSNT, G8752 MOST RECENT SYSTOLIC BP < 140MM HG, G8754 MOST RECENT DIASTOLIC BP < 90MM HG * Preventive Medicine: Counseling: E motional health: P atient encouraged to try connecting with family or friends to boost mood. B ladder control: M ethods of controlling or managing leakage of urine discussed. E xercise: P atient advised to start, increase or maintain level of exercise/physical activity. I njury prevention: F all prevention discussed. Discussed need for cane/walker. Potential trip hazards discussed. Immunizations: P neumococcal u p to date. Screening / Special Tests: C olonoscopy d eclined in the past, recommended.?PSA , normal. D iabetic Retinal Eye Exam r ecommended today. * Follow Up: 3 Months with labs * Images: Billing Information: * Visit Code: 75681 Office Visit, Est Pt., Level 3. Modifiers: 25 * Procedure Codes: G0439 ANNUAL WELLNESS VST; PPS SUBSQT VST. G0444 ANNUAL DEPRESSION SCREENING 15 MIN. 1090F PRES/ABSN URINE INCON ASSESS. 3288F FALL RISK ASSESSMENT DOCD. 1170F FXNL STATUS ASSESSED. 1159F MED LIST DOCD IN RCRD. 1003F LEVEL OF ACTIVITY ASSESS. 1036F TOBACCO NON-USER. 4040F PNEUMOC IMM ORDER/ADMIN. G2211 Complex e/m visit add on. 1125F AMNT PAIN NOTED PAIN PRSNT. G8752 MOST RECENT SYSTOLIC BP < 140MM HG. G8754 MOST RECENT DIASTOLIC BP < 90MM HG. * Electronic signature of Kitty Art MD on 06/27/2025 at 10:22 AM EDT Sign off status: Pending * Provider: Kitty Art M.D. Date: 0 10/27/2024 Generated for Mahsa soliz/Rudy/Thomas on: 1 10:22 AM EDT History and Physical Notes * HPI (History of Present Illness) Category Sub-Category Detail Notes Category Not es Endocrinology Polyuria Nocturia Blurred Vision HPI Patient is here today for a sche duled 3 month check up and a Medicare Annual Wellness Visit. Physical Examination Category Sub-Category Detail Notes Section Note s GENERAL Pain Assessment: Pain level: 6-7 , on a scale of 0-10 (with 10 being extreme pain) Functional Status Assessment: Patient response to question of how often physical health interferes with daily activities: . Occasionally Able to perform ADLs-including meal preparation, grocery shopping, housework, laundry, taking medications or handling finances. Cognitive Status: alert and oriented. Ambulation Status: Fully ambulatory Fall Risk Assessment: Independant in amb ulation, adequate lighting in home. Patient has fallen or had trouble walking within the past 12 months Depression Screening: Denies depressed m ood or anxiety. Describes emotional health as: positive Bladder Control Screening: significant p roblems Examination Category Sub-Category Detail Notes Category Not es General Examination Heart: RSR Lungs: clear to auscultatio n Extremities: no leg edema General Appearance: NAD Neck: supple, no lymphaden opathy
--- OUTSIDE RECORDS SUMMARY | 2025-01-26 11:00 | XMS_ITS ---
Author Organization [facility] Address [address] [place] [id number] Care Team Providers Care Blindstitch Lapel Padder Name Role Phone Kitty Art Primary Care Provider [phone] MattCourt james Unavailable [phone] Allergies No Known Allergies Results Component Value [...] 54 Performing Lab: Notes/Report: Test performed by [facility] [address] [place] [address] , [address], [place] [address] Massimo Max MD, Hogshead Hooper CLIA: [id number] Sodium 146 135-145 mmol/L Potassium 4.2 3.5-5.3 [...] 153 Performing Lab: Notes/Report: Test performed by [facility] [address] [place] [address] , [address], [place] [address] Massimo Max MD, Hogshead Hooper CLIA: [id number] Cholesterol 247 <200 mg/dL Triglycerides 237 <150 [...] Interpretation:Normal Performing Lab: Notes/Report: Test performed by [facility], [address] , [place] [address] Massimo Max MD, Hogshead Hooper CLIA: [id number] TSH 2.81 0.43-5.25 mU/L REASON FOR VISIT [...] q6h prn pain 06/21/2024 Active Vital Signs Weight 209.8 lbs 01/26/2025 Blood pressure systolic 130 mm Hg 01/27/20 25 Blood pressure diastolic 90 mm Hg 025 Heart Rate 67 /min 01/26/2025 Height 67 in 01/26/2025 BMI 32.86 kg/m2 01/26/2025 Encounters Encounter Location Date Provider Diagnosis [facility] [address] [phone] 01/26/2025 Court [facility] Type 2 diabetes viridiana [...] [address], [address], [place], [place], [id number], Progress Notes * YARBROUGHYULISSA DDOB:1955 (69 yo M)Acc No.[id number]:01/26/2025 Progress Notes Patient: YULISSA MARKS Provider: ZAKI Torres :1955 A ge:69 Y S ex:Male Date:01/26/2025 Address:[address] [place], [place] [id number] Pcp:Kitty Art Subjective: * Chief Complaints: * [...] D epression - F32.9 8 . B [place] 32.0-32.9,adult - Z68.32 Plan: * Treatment: Value [...] G 2211 Complex e/[place], [address] GLYCATED HEMOGLOBIN TEST, Modifiers: QW , 18153 CBC WITH AUTO DIFF, 50027 Urinalysis, no micro, G8950 PREHTN/HTN BP DOC INDCD F/U DOC, G8752 MOST RECENT SYSTOLIC BP < 140MM HG, G8754 MOST RECENT DIASTOLIC BP < 90MM HG, 3044F HG A1C LEVEL LT 7.0% * Follow Up: v ia phone to report test results * Images: Billing Information: * Visit Code: 05551 Office Visit, Est Pt., Level 4. * Procedure Codes: G2211 Complex e/[place]. [address] GLYCATED HEMOGLOBIN TEST. Modifiers: QW 74466 CBC WITH AUTO DIFF. 57570 Urinalysis, no micro. G8950 PREHTN/HTN BP DOC INDCD F/U DOC. G8752 MOST RECENT SYSTOLIC BP < 140MM HG. G8754 MOST RECENT DIASTOLIC BP < 90MM HG. 3044F HG A1C LEVEL LT 7.0%. * Electronic signature of ZAKI Quintero on 06/27/2025 at 10:23 AM EDT Sign off status: Pending * Provider: ZAKI Torres Date: 0 01/26/2025 Generated for Mahsa soliz/Rudy/eTransmitting on: 1 10:23 AM EDT History and [...]
--- OUTSIDE RECORDS SUMMARY | 2025-01-27 07:00 | XMS_ITS ---
Author Organization [facility] Address [facility] [address] [place] [id number] Care Team Providers Care Body Worker Name Role Phone Kitty Art Primary Care Provider Court Child[facility] [phone] Results Component Value Reference Range Notes TEN-stool panel Reviewed date:02/01/2025 04:52:32 PM Interpretation:REJECTED Performing Lab: Notes/Report: REJECTED REASON FOR VISIT stool sample Encounters Encounter Location Date Provider Diagnosis [facility] [address] [facility] [address] [place] [id number] 01/27/2025 [address] [facility] Diarrhea R19.7 Assessments Encounter Date Diagnosis (ICD Code) Assessment Notes Treatment Notes Treatment Clinical Notes Section Notes 01/27/2025 Diarrhea (ICD-10 - R19.7) Plan Of Treatment Next Appt Details Provider Name:Kitty Polanco, 09/19/2025 10:00:00 AM, [address] [facility], [address], [place], [id number], Progress Notes * YULISSA YARBROUGH DDOB:1955 (69 yo M)Acc No.[id number]:01/27/2025 Patient: YULISSA MARKS Provider: ZAKI Torres :1955 A ge:69 Y S ex:Male Date:01/27/2025 Address:[address], [id number] Pcp:Kitty Art Subjective: * Chief Complaints: * 1 . Stool sample. * Medical History: Objective: * Vitals: Assessment: * Assessment: 1. D iarrhea - R19.7 Plan: * Treatment: * Images: Billing Information: * Visit Code: * Procedure Codes: * Electronic signature of ZAKI Quintero on 06/27/2025 at 10:24 AM EDT Sign off status: Pending * Provider: ZAKI Torres Date: 0 01/27/2025 Generated for Mahsa soliz/Rudy/eTransmitting on: 10:24 AM EDT
--- OUTSIDE RECORDS SUMMARY | 2025-02-03 07:40 | XMS_ITS ---
Author Organization [facility] Address [facility] [facility] [address] [place] [phone] Care Team Providers Care Mold Cutting Machine Operator Name Role Phone Kitty Art Primary Care Provider REASON FOR VISIT stool sample Encounters Encounter Location Date Provider Diagnosis [facility] [address] [place] [phone] 02/03/2025 Kitty Art Plan Of Treatment Next Appt Details Provider Name:Kitty Polanco, 09/19/2025 10:00:00 AM, [address], [address], [place], [phone], Progress Notes * YULISSA YARBROUGH DDOB:1955 (69 yo M)Acc No.[id number]:02/03/2025 Patient: Ric GRACIEEraYULISSA Provider: Kitty Art M.D. :1955 A ge:69 Y S ex:Male Date:02/03/2025 Address:[address], [id number] Subjective: * Chief Complaints: * 1 . Stool sample. * Medical History: Objective: * Vitals: Assessment: Plan: * Treatment: * Images: Billing Information: * Visit Code: * Procedure Codes: * Electronic signature of Kitty Art MD on 06/27/2025 at 10:22 AM EDT Sign off status: Pending * Provider: Kitty Art M.D. Date: 0 02/03/2025 Generated for Mahsa soliz/Rudy/Thomas on: 1 10:22 AM EDT
--- OUTSIDE RECORDS SUMMARY | 2025-02-21 05:15 | XMS_ITS ---
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 Name Role Phone Kitty Art Primary Care Provider Allergies No Known Allergies REASON FOR VISIT 3 month check with fasting labs, Needs labs, colon cancer screening, & diabetic eye exam Medications Medication SIG (Take, Route, Frequency, Duration) Notes Start Date End Date Status BD PEN NEEDLE 29G X1/2 (AUTOSHIELD) 1 TWO TIMES A DAY; Duration: 90 DAYS Active Tamsulosin HCl 0.4 MG 1 capsule Orally O nce a day; Duration: 90 days Active Levothyroxine Sodium 50 MCG TAKE 1 TABLET BY MOUTH ONCE DAILY; Duration: 90 Active Farxiga 10 MG 1 tablet Orally Once a day; Duration: 90 days Active Gabapentin 100 MG 2 capsule Orally Thr ee times a day 01/19/2025 Active Atorvastatin Calcium 20 MG TAKE 1 TABLET BY MOUTH ONCE DAILY; Duration: 90 Active Lantus SoloStar 100 UNIT/ML INJECT 30 UNITS SUBCUTANEOUSLY ONCE DAILY KEEP IN REFRIGERATOR; Duration: 50 days Active buPROPion HCl ER (SR) 150 MG 1 tablet in the morning Orally Once a day Active traMADol HCl 50 MG 1 tab(s) Orally q6h prn pain 06/21/2024 Active SITagliptin Phosphate 100 MG 1 tab(s) orally once a day A ctive BD Pen Needle Short U/F 31 GUAGE X 5/16 INCH 1 Q DAY 05/13/2022 Active glucometer - Use meter to test 3 times a day 02/24/2024 Active Blood Glucose Test Strips 333 - 1 strip In Vitro Three times a day 02/24/2024 Active Omeprazole 40 MG TAKE 1 CAPSULE ONE T ANYA DAILY; Duration: 90 Active Meclizine HCl 25 MG 1 tablet as needed O rally Two times a day 12/08/2023 Active buPROPion HCl ER (SR) 150 MG 1 tablet in the morning Orally twice a day; Duration: 90 days Active LANCET - BID 05/24/2020 Active Accu-Chek Roya Plus 1 TEST STRIP(S) FINGERSTICK TEST 2 TIMES A DAY; Duration: 30 DAYS 05/24/2020 Active Ventolin HFA 108 (90 Base) MCG/ACT 2 puff(s) inhaled every 6 hours prn wheezing 09/30/2019 Active Aspirin 81 MG 1 ORALLY ONCE DAILY Active Diclofenac Sodium 75 MG 1 tablet as need ed Orally Twice a day 02/15/2025 Active amLODIPine Besylate 5 MG 2 tabs Orally Once a day 01/27/2025 Active Vilazodone HCl 40 MG 1 tab(s) Orally Once a day Active Losartan Potassium 100 MG TAKE 1 TABLET BY MOUTH ONCE DAILY Active Metoprolol Succinate ER 100 MG 1 tablet Orally Once a day A ctive Problems Problem Type SNOMED Code ICD Code Onset Dates Problem Status W/U Status Risk Notes Problem Irritable bowel syndrome (28984367) Irritable bowel syndrome (K58.9) Active confirmed Vital Signs Weight 208.6 lbs 02/21/2025 Blood pressure systolic 132 mm Hg 02/22/20 25 Blood pressure diastolic 84 mm Hg 025 Heart Rate 65 /min 02/21/2025 Height 67 in 02/21/2025 BMI 32.67 kg/m2 02/21/2025 Encounters Encounter Location Date Provider Diagnosis [facility] [address] [place], [place] [phone] 02/21/2025 R Hayes Art Depression F32.9 ; Irritable bowel syndrome K58.9 and Hypertension, unspecified type I10 Assessments Encounter Date Diagnosis (ICD Code) Assessment Notes Treatment Notes Treatment Clinical Notes Section Notes 02/21/2025 Depression (ICD-10 - F32.9) 02/21/2025 Irritable bowel syndrome (ICD-10 - K58.9) Symptoms are fairly mild at present. Discussed referral for colonoscopy but he declines. He has had no red flag symptoms but will let me know if he notices blood in his stool, fever, or weight loss. 02/21/2025 Hypertension, unspecified type (ICD-10 - I10) Plan Of Treatment Medication Medication Name Sig Start Date Stop Date Notes buPROPion HCl ER (SR) 150 MG 1 tablet in the morning Orally twice a day; Duration: 90 days amLODIPine Besylate 5 MG 2 tabs Orally Once a day 01/28/20 25 Vilazodone HCl 40 MG 1 tab(s) Orally Once a day Losartan Potassium 100 MG TAKE 1 TABLET BY MOUTH ONCE DAILY Metoprolol Succinate ER 100 MG 1 tablet Orally Once a day Treatment Notes Assessment Notes Irritable bowel syndrome Symptoms are fa irly mild at present. Discussed referral for colonoscopy but he declines. He has had no red flag symptoms but will let me know if he notices blood in his stool, fever, or weight loss. Next Appt Details Follow Up: 3 Months, Reason: Provider Name:Kitty Polanco, 09/19/2025 10:00:00 AM, [address] [facility] [address], [place], [place], [id number], Progress Notes * YULISSA YARBROUGH DDOB:1955 (69 yo M)Acc No.[id number]:02/21/2025 Progress Notes Patient: YULISSA MARKS Provider: Kitty Art M.D. :1955 A ge:69 Y S ex:Male Date:02/21/2025 Address:[address] [place], [place] [id number] Subjective: * Chief Complaints: * 1 . 3 month check with fasting labs. 2. Needs labs, colon cancer screening, & diabetic eye exam. * HPI: C ardiology: Blood pressure has been consistently normal sinus increasing amlodipine. P sychology: depression P t would like to discuss changing or increasing depression medications. G astroenterology: He continues to complain of diarrhea but on further questioning, his stools are normal but are frequently followed by a lot of mucus. He denies blood. He sometimes has some abdominal cramping. No weight loss. Symptoms usually occur in the morning and taper off through the day. He attributes it to a lot of sinus congestion and drainage. * ROS: D ERMATOLOGY: no R kanika. [...] ather: 84 yrs, diagnosed with Cancer, Hypertension, Stroke, Heart Disease. M other: 82 yrs, heart problems, diagnosed [...] 5/16 INCH 1 Q DAY , Taking Omeprazole 40 MG Capsule Delayed Release TAKE 1 CAPSULE ONE TIME DAILY , Taking Meclizine HCl 25 MG Tablet 1 tablet as needed Orally Two times a day , Taking glucometer - - Use meter to test 3 times a day , Taking Blood Glucose Test Strips 333 - Strip 1 strip In Vitro Three times a day , Taking traMADol HCl 50 MG Tablet 1 tab(s) Orally q6h prn pain , Taking SITagliptin Phosphate 100 MG Tablet 1 tab(s) orally once a day , Taking buPROPion HCl ER (SR) 150 MG Tablet Extended Release 12 Hour 1 tablet in the morning Orally Once a day , Taking Losartan Potassium 100 MG Tablet TAKE 1 TABLET BY MOUTH ONCE DAILY , Taking Atorvastatin Calcium 20 MG Tablet TAKE 1 TABLET BY MOUTH ONCE DAILY , Taking Lantus SoloStar 100 UNIT/ML Solution Pen-injector INJECT 30 UNITS SUBCUTANEOUSLY ONCE DAILY KEEP IN REFRIGERATOR , Taking Farxiga 10 MG Tablet 1 tablet Orally Once a day , Taking Gabapentin 100 MG Capsule 2 capsule Orally Three times a day , Taking Vilazodone HCl 40 MG Tablet 1 tab(s) Orally Once a day , Taking Levothyroxine Sodium 50 MCG Tablet TAKE 1 TABLET BY MOUTH ONCE DAILY , Taking BD PEN NEEDLE 29G X1/2 (AUTOIELD) 1 TWO TIMES A DAY , Taking Tamsulosin HCl 0.4 MG Capsule 1 capsule Orally Once a day , Taking Metoprolol Succinate ER 100 MG Tablet Extended Release 24 Hour 1 tablet Orally Once a day , Taking buPROPion HCl ER (SR) 150 MG Tablet Extended Release 12 Hour 1 tablet in the morning Orally Once a day , Taking amLODIPine Besylate 5 MG Tablet 2 tabs Orally Once a day , Taking Diclofenac Sodium 75 MG Tablet Delayed Release 1 tablet as needed Orally Twice a day , Medication List reviewed and reconciled with the patient * Allergies: N .K.D.A. Objective: * Vitals: W t: 208.6, Temp: 98.2, BP: 132/84, HR: 65, O2 Sat: 96% on RA, Nurse: HALIMA, Ht: 67, BMI:32.67. * Examination: G eneral Examination: General Appearance: N AD. Affect seems good today.?Neck: s upple, no lymphadenopathy. H eart: R SR. L ungs: c lear to auscultation. A bdomen: o bese, soft, NT. E xtremities: n o leg edema. Assessment: * Assessment: 1. D epression - F32.9 (Primary) 2 . I rritable bowel syndrome - K58.9 3 . H ypertension, unspecified type - I10 Plan: * Treatment: 2. I rritable bowel syndrome Notes: Symptoms are fairly mild at present. Discussed referral for colonoscopy but he declines. He has had no red flag symptoms but will let me know if he notices blood in his stool, fever, or weight loss. 3. H ypertension, unspecified type Continue Losartan Potassium Tablet, 100 MG, TAKE 1 TABLET BY MOUTH ONCE DAILY; C ontinue Metoprolol Succinate ER Tablet Extended Release 24 Hour, 100 MG, 1 tablet, Orally, Once a day; C ontinue amLODIPine Besylate Tablet, 5 MG, 2 tabs, Orally, Once a day. * Procedure Codes: G 2211 Complex e/m visit add on, 1036F TOBACCO NON-USER, G8950 PREHTN/HTN BP DOC INDCD F/U DOC, G8752 MOST RECENT SYSTOLIC BP < 140MM HG, G8754 MOST RECENT DIASTOLIC BP < 90MM HG * Follow Up: 3 Months * Images: Billing Information: * Visit Code: 60762 Office Visit, Est Pt., Level 4. * Procedure Codes: G2211 Complex e/m visit add on. 1036F TOBACCO NON-USER. G8950 PREHTN/HTN BP DOC INDCD F/U DOC. G8752 MOST RECENT SYSTOLIC BP < 140MM HG. G8754 MOST RECENT DIASTOLIC BP < 90MM HG. * Electronic signature of Kitty Art MD on 06/27/2025 at 10:22 AM EDT Sign off status: Pending * Provider: Kitty Art M.D. Date: 0 02/21/2025 Generated for Mahsa soliz/Rudy/Thomas on: 1 10:22 AM EDT History and Physical Notes * HPI (History of Present Illness) Category Sub-Category Detail Notes Category Not es Psychology depression Pt would like to discuss changing or increasing depression medications Examination Category Sub-Category Detail Notes Category Not es General Examination Heart: RSR Lungs: clear to auscultatio n Abdomen: obese, soft, NT Extremities: no leg edema General Appearance: NAD. Affect seems go od today Neck: supple, no lymphaden opathy
--- OUTSIDE RECORDS SUMMARY | 2025-06-15 06:00 | XMS_ITS ---
[facility] Organization 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 mg/dL Random urine reference range not established. 24 hour urine samples recommended. MICROALB 129.800 0-16.7 mg/L MALBCREAT 170.7 Units: mg/g creat Normal: 0 - 29 Moderately Increased: 30 - 300 Severely Increased: >300 H-Lipid Panel Reviewed date:06/20/2025 09:02:41 AM Interpretation:TC 248; LDL 155 Performing Lab: Notes/Report: Patient Fasting? Y TRIG 242 30-150 mg/dl CHOL 248 140-200 mg/dl DLDL 155.35 100-129 mg/dL VLDL 48 0-40 mg/dL HDL 46 40-60 mg/dl CHLHDL 5.4 1-3.5 H-CMP Reviewed date:06/20/2025 09:02:41 AM Interpretation:FBS 113 Performing Lab: Notes/Report: NA 141 136-145 mmol/L K 4.3 3.5-5.1 mmoL/L CL 102 98-107 mmol/L CO2 31 22.0-30.0 mmol/L GAP 12.3 5-15 mEq/L BUN 16 9-20 mg/dl CREATT 1.10 0.66-1.25 mg/dl GFRAA 81 >60 ML/MIN EGFR 67 >60 ml/min GLU 113 74-100 mg/dl CA 8.9 8.4-10.2 mg/dl BILIT 0.8 0.2-1.3 mg/dl AST 32 17-59 U/L ALT 42 12-78 U/L TP 6.7 6.3-8.2 g/dl ALB 4.0 3.5-5.0 g/dl GLOB 2.7 1.3-3.2 g/dL AGRATIO 1.5 1.1-1.8 ALP 66 38-126 U/L H-Glycohemoglobin A1C Reviewed date:06/20/2025 09:02:41 AM Interpretation:5.5% Performing Lab: Notes/Report: HGBA1C 5.5 4.0-6.0 % < 6% Non-Diabetic Level < 7% Controlled Diabetic Level > 8% Poorly Controlled Diabetic Level H-PSA Reviewed date:06/20/2025 09:02:41 AM Interpretation:1.9 Performing Lab: Notes/Report: PSASC 1.9 0.0-4.0 ng/ml X ray : Foot, right Reviewed date:06/22/2025 01:02:24 PM Interpretation: Performing Lab: Notes/Report: REASON FOR VISIT 3 months, patient needs [...] Polyneuropathy due to type 2 diabetes mellitus (535088542) 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 cardiac Routine 06/15/2025 Next Appt Details Follow Up: after tests, Reas on: Provider Name:Kitty Polanco, 09/19/2025 10:00:00 AM, [address], [address], [place], [id number], Progress Notes * YULISSA YARBROUGH DDOB:1955 (69 yo M)Acc No.[id number]:06/15/2025 Progress Notes Patient: Ric GRACIEEra YULISSA Alejandra Provider: Kitty Art M.D. :1955 A ge:69 Y S ex:Male Date:06/15/2025 Address:[address] [place] [address] [id number] Subjective: * Chief Complaints: * 1 [...] 66, O2 Sat: 97% on RA, Nurse: jordy, Ht: 67, BMI:32.42. * Examination: G eneral [...] hypothyroidism - E03.9 ? Plan: * Treatment: 2.?Foot pain, right?Imaging: X ray : Foot, right (Performed Date - 06/16/2025)* Kitty Art 06/22/2025 01:02:12 PM EDT > reviewed. See TE * Labs: * L ab: H-Lipid Panel (Collection Date & Time - 06/16/2025 09:46 AM) T C 248; LDL 155 Value Reference Range T RIG 242 H 30-150 - mg/dl * C HOL 248 H 140-200 - mg/dl * D LDL 155.35 H 100-129 - mg/dL * V LDL 48 H 0-40 - mg/dL * H DL 46 40-60 - mg/dl * C HLHDL 5.4 H 1-3.5 - * Kitty Art 06/20/2025 09:02:28 AM EDT > See phone encounter ?Lab: H-PSA (Collection Date & Time - 06/16/2025 09:46 AM)?1.9* Value Reference Range P SASC 1.9 0.0-4.0 - ng/ml * Kitty Art 06/20/2025 09:02:28 AM EDT > See phone encounter ?Lab: H-CMP (Collection Date & Time - 06/16/2025 09:46 AM)?FBS 113* Value Reference Range N A 141 136-145 - mmol/L * K 4.3 3.5-5.1 - mmoL/L * C L 102 98-107 - mmol/L * C O2 31 H 22.0-30.0 - mmol/L * G AP 12.3 5-15 - mEq/L * B UN 16 9-20 - mg/dl * C REATT 1.10 0.66-1.25 - mg/dl * G FRAA 81 >60 - ML/MIN * E GFR 67 >60 - ml/min * G CAROL 113 H 74-100 - mg/dl * C A 8.9 8.4-10.2 - mg/dl * B ILIT 0.8 0.2-1.3 - mg/dl * A ST 32 17-59 - U/L * A LT 42 12-78 - U/L * T P 6.7 6.3-8.2 - g/dl * A LB 4.0 3.5-5.0 - g/dl * G LOB 2.7 1.3-3.2 - g/dL * A GRATIO 1.5 1.1-1.8 - * A LP 66 38-126 - U/L * Kitty Art 06/20/2025 09:02:28 AM EDT > See phone encounter ?Lab: H-TSH (Collection Date & Time - 06/16/2025 09:46 AM)?2.22* Value Reference Range T SH 2.22 0.465-4.68 - uIU/mL * Kitty Art 06/20/2025 09:02:28 AM EDT > See phone encounter ?Lab: H-Glycohemoglobin A1C (Collection Date & Time - 06/16/2025 09:46 AM) ?5.5%* Value Reference Range H GBA1C 5.5 4.0-6.0 - % * Kitty Art 06/20/2025 09:02:28 AM EDT > See phone encounter ?Lab: H-Microalbumine/Creatinine (Collection Date & Time - 06/16/2025 09:46 AM)* Value Reference Range M ICROALB 129.800 H 0-16.7 - mg/L * U CREAT 76 Not Estab. - mg/dL * M ALBCREAT 170.7 - * Kitty Art 06/20/2025 09:02:28 AM EDT > See phone encounter * Follow Up: a fter tests * Images: Billing Information: * Visit Code: 33615 Office Visit, Est Pt., Level 4. * Procedure Codes: * Electronic signature of Kitty Art MD on 06/27/2025 at 10:23 AM EDT Sign off status: Pending * Provider: Kitty Art M.D. Date: Generated for Mahsa soliz/Rudy/Rainransmitting on: 10:23 AM EDT History and Physical Notes [...]
--- NOTE | 2025-06-27 | CA_ITS ---
APPROVED REPORT Exam: Exercise Treadmill Technologist: Brianda Martinez Stress Nurse: Emi DEVINE, RN Ht: 5 ft 6 in Wt: 207 lbs BSA: 2.03 m2 HR: 51 bpm BP: 182/96 mmHg Indications: Chest pain Stress Test Details Test: Exercise stress testing was performed using a Ulises protocol. HR Resting HR: 51 bpm Max Heart Rate (APMHR): 153.849740 bpm Max HR Achieved: 99 bpm Target HR (85% APMHR): 130.497759 bpm % of APMHR: 64.71 Recovery HR: 63 bpm BP Resting BP: 182.0/96.0 mmHg Max BP: 204.0/102.0 mmHg Recovery BP: 161.0/90.0 mmHg ECG Resting ECG: Sinus rhythm Stress ECG Conclusion 2/10 Chest discomfort. Test discontinued per patient's request. Symptoms: Chest discomfort Arrhythmias/Ectopy: None ST-T Changes: Less than 0.[address] segment changes Conclusion: [place] Treadmill Score: - 4 Electronically signed by : Ivett Medina MD 06/28/2025 00:10:55
[2025-06-27 10:15] VITALS: BP 182/96; BP 204/102; PULSE 51; RESP 14
--- OUTSIDE RECORDS SUMMARY | 2025-06-27 10:24 | XMS_ITS | Patient Health Record ---
[facility] [address] [facility] [address] [facility] [address] [place] [id number] Care Team Providers Care Hat Model Name Role Phone Kitty Art Primary Care Provider [phone] Unavailable [phone] Allergies No Known Allergies Results Component Value Reference Range Notes Glycohemoglobin A1c (in hous e) Reviewed date:07/25/2024 07:28:09 PM Interpretation:6.7% Performing Lab: Notes/Report: 6.7% glycohemoglobin 6.7% 5 - 6.5 % P-Comprehensive Metabolic Pa bernadette (CMP) Reviewed date:07/25/2024 07:28:09 PM Interpretation:gluc 140, Cr 1.34, gfr 58 Performing Lab: Notes/Report: Test performed by [facility] [address] [place] [address] , [address], [place] [address] Massimo Max MD, Petroleum Refinery Worker CLIA: [id number] Sodium 140 135-145 mmol/L Potassium 3.8 3.5-5.3 [...] 169 Performing Lab: Notes/Report: Test performed by [facility], [address] , [facility], [place] [address] Massimo Max MD, Petroleum Refinery Worker CLIA: [id number] Cholesterol 150 <200 mg/dL Triglycerides 169 <150 [...] Interpretation:Normal Performing Lab: Notes/Report: Test performed by [facility] [address] , [address], [place] [address] Massimo Max MD, Petroleum Refinery Worker CLIA: [id number] TSH 2.74 0.43-5.25 mU/L H-TSH Reviewed date:06/20/2025 09:02:41 AM Interpretation:2.22 Performing [...] date:06/22/2025 01:02:24 PM Interpretation: Performing Lab: Notes/Report: P-Comprehensive Metabolic Pa bernadette (CMP) Reviewed date:06/20/2025 10:45:35 AM Interpretation: Performing Lab: Notes/Report: P-Microalbumin/Creatinine, R andom Urine Sample Reviewed date:06/20/2025 10:45:19 AM Interpretation: Performing Lab: Notes/Report: TEN-stool panel Reviewed date:02/01/2025 04:52:32 PM Interpretation:REJECTED Performing Lab: Notes/Report: REJECTED P-TSH Reviewed date:01/27/2025 09:40:24 AM Interpretation:Normal Performing Lab: Notes/Report: Test performed by [facility] [address] [place] [address] , [place], [place] [address] Massimo Max MD, Petroleum Refinery Worker CLIA: [id number] TSH 2.81 0.43-5.25 mU/L P-Lipid Panel Reviewed date:01/27/2025 09:40:24 AM Interpretation:chol 247, trigs 237, chol/hdl 5.26, non-hdl 200, ldl 153 Performing Lab: Notes/Report: Test performed by [facility] [address] [place] [address] [address], [place] [address] Massimo Max MD, Petroleum Refinery Worker CLIA: [id number] Cholesterol 247 <200 mg/dL Triglycerides 237 <150 [...] ATPIII guidelines LDL/HDL Ratio 3.2 <3.3 Ratio LDL Cholesterol Patient History Test Date: 12/08/2023 LDL Results: 135 Units: mg/dL % Change: +46% Test Date: 07/21/2024 LDL Results: 72 Units: mg/dL % Change: -46% Test Date: 01/26/2025 LDL Results: 153 Units: mg/dL % Change: +112% P-Culture, Urine Reviewed date:01/27/2025 09:40:24 AM Interpretation:test cancelled Performing Lab: Notes/Report: Test Cancelled Test Cancelled Auto Cancel by System. No Available Specimens for ordered test P-Comprehensive Metabolic Pa bernadette (CMP) Reviewed date:01/27/2025 09:40:24 AM Interpretation:Na 146, gluc 112, Cr 1.42, gfr 54 Performing Lab: Notes/Report: Test performed by [facility] , [address], [place] [address] Massimo Max MD, Petroleum Refinery Worker CLIA: [id number] Sodium 146 135-145 mmol/L Potassium 4.2 3.5-5.3 [...] 0.5 <0.2-1.2 mg/dL A/G Ratio 1.6 1.1-2.5 Glycohemoglobin A1c (in hous e) Reviewed date:01/27/2025 12:35:51 AM Interpretation:6.3% Performing Lab: Notes/Report: 6.3% glycohemoglobin 6.3% 5 - 6.5 % CBC Fingerstick (in house) Reviewed date:01/27/2025 12:35:51 [...] - 38 plat 201 100 - 400 Urinalysis - Inhouse Reviewed date:01/27/2025 12:35:51 AM Interpretation: Performing Lab: Notes/Report: Color/Clarity yellow Leuk neg Nitrite neg Urobili 3.2 Protein 1+ pH 5.5 Blood trace Sp. Gr. 1.020 Ketone neg Bili neg Gluc 3+ H-Urine Culture and Sensitiv ity Reviewed date:06/22/2025 10:13:03 AM Interpretation:Multiple organisms, suggests contamination Performing Lab: Notes/Report: CUU Multiple organisms, suggests contamination. Reason For Referral Reason Calcium deposit on h eel [facility] Referring Provider First Name Kitty Koo Referring Provider Last Name Kaelyn Referring Provider Speciality [facility] Referred Provider Keena Marsh Referred Address [address] [facility] [address], [address],[place], [id number], Referred Provider Specialty Podiatry General Notes Julia Sosa 2024 10:58:42 AM > faxed to [facility] Podiatry Referral Priority Routine Medications Medication SIG (Take, Route, Frequency, Duration) [...] a day; Duration: 90 days 01/27/2025 Active buPROPion HCl ER (SR) 150 MG [...] 5/16 INCH 1 Q DAY 05/13/2022 Active Tamsulosin HCl 0.4 MG 1 capsule Orally O nce a day; Duration: 90 days Active Losartan Potassium 100 MG 1 tablet Orall y Once a day; Duration: 90 days Active SITagliptin Phosphate 100 MG 1 [...] Problem Type II diabetes mellitus without complication (548117910) Type 2 diabetes mellitus without complications (E11.9) Active confirmed Problem Cervicalgia (67802811) Cervicalgia (M54.2) Active confirmed Problem Mixed anxiety and depressive disorder (284509601) Depression with anxiety (F41.8) Active confirmed Problem BMI 30+ - obesity (032266277) BMI 32.0-32.9,adult (Z68.32) Active confirmed Problem Thyromegaly (7469476) Thyromegaly (E04.9) Active confirmed Problem Peripheral neuropathy (622199254) Peripheral neuropathy (G62.9) Active confirmed Problem Insomnia (465605930) Other insomnia (G47.09) Active confirmed Problem Long-term current use of insulin (303123082) 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.4) Active confirmed Problem Gastroesophageal reflux disease without esophagitis (136834554) Gastroesophageal reflux disease without esophagitis (K21.9) Active confirmed Problem Acquired hypothyroidism (511575062) Acquired hypothyroidism (E03.9) Active confirmed Problem Depression (952193752) Depression (F32.9) Active confirmed Problem Irritable bowel syndrome (96459206) Irritable bowel syndrome (K58.9) Active confirmed Problem Body mass index 30.00 to 34.99 (560232818846264) BMI 34.0-34.9,adult (Z68.34) Active confirmed Problem Dyslipidemia (090324939) Dyslipidemia (E78.5) Active confirmed Problem Tinnitus (78317889) Tinnitus (H93.19) Active co nfirmed Problem Lower urinary tract symptoms due to benign prostatic hypertrophy (05808584752768) Benign prostatic hyperplasia with lower urinary tract symptoms (N40.1) Active confirmed Problem Essential hypertension (36154120) Hypertension, unspecified type (I10) Active confirmed Problem Hyperglycemia due to type 2 diabetes mellitus (431627728733559) Uncontrolled type 2 diabetes mellitus with hyperglycemia (E11.65) Active confirmed Problem Cervical arthritis (disorder) (473953195) Arthritis of neck (M47.812) Active confirmed Problem Hyperglycemic hyperosmolar nonketotic coma (E11.01) Active confirmed Problem Polyneuropathy due to type 2 diabetes mellitus (494220870) 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 Vital Signs Heart Rate 66 /min 06/15/2025 Blood pressure diastolic 78 mm Hg 06/15/2025 Height 67 in 06/15/2025 Blood pressure systolic 140 mm Hg 06/15/2025 Weight 207 lbs 06/15/2025 BMI 32.42 kg/m2 06/15/2025 Encounters Encounter Location Date Provider [facility] [facility] [address] [place] [id number] 07/21/2024 Kitty Art Cervicalgia M54.2 ; Arthritis of neck M47.812 ; Depression with anxiety F41.8 ; Acquired hypothyroidism E03.9 ; Peripheral neuropathy G62.9 ; Type 2 diabetes mellitus without complications E11.9 ; Dyslipidemia E78.5 ; Benign prostatic hyperplasia with lower urinary tract symptoms N40.1 and Hypertension, unspecified type I10 [facility] [address] [facility] [address] [place] [id number] 10/27/2024 Kitty Art Adult general medica l examination Z00.00 ; Cervicalgia M54.2 ; Arthritis of neck M47.812 ; Depression with anxiety F41.8 ; Acquired hypothyroidism E03.9 ; Peripheral neuropathy G62.9 ; Type 2 diabetes mellitus without complications E11.9 ; Dyslipidemia E78.5 ; Benign prostatic hyperplasia with lower urinary tract symptoms N40.1 ; Hypertension, unspecified type I10 and BMI 32.0-32.9,adult Z68.32 [facility] [address] [facility] [address] [place] [id number] 01/26/2025 [address] Type 2 diabetes viridiana itus without complications E11.9 ; Dyslipidemia E78.5 ; Acquired hypothyroidism E03.9 ; Hypertension, unspecified type I10 ; Chronic diarrhea K52.9 ; Dysuria R30.0 ; Depression F32.9 and BMI 32.0-32.9,adult Z68.32 [facility] [address] [place], [place] [id number] 01/27/2025 [address] Crowdy Diarrhea R19.7 [facility] [address] [facility] [address] [place], [place] [id number] 02/03/2025 R Hayes Kaelyn [facility] [address] [facility] [address] [place], [place] [id number] 02/21/2025 R Hayes [place] Depression F32.9 ; Irritable bowel syndrome K58.9 and Hypertension, unspecified type I10 [facility] [address] [place], [place] [id number] 06/15/2025 R Hayes Kaelyn Foot pain, right M79 .671 ; Chest pain R07.9 ; DM type 2 with diabetic peripheral neuropathy E11.42 ; Hypertension, unspecified type I10 ; Depression with anxiety F41.8 ; Benign prostatic hyperplasia with lower urinary tract symptoms N40.1 ; Dyslipidemia E78.5 and Acquired hypothyroidism E03.9 [facility] [address] [facility] [address] [place], [place] [id number] 07/25/2024 R Hayes Kaelyn [facility] [address] [facility] [address] [place], [place] [id number] 09/19/2024 R Hayes Kaelyn Cervicalgia M54.2 [facility] [address] [facility] [address] [place] [id number] 12/15/2024 R Hayes Kaelyn [facility] [address] [place], [place] [id number] 01/16/2025 R Hayes Kaelyn [facility] [address] [facility] [address] [place], [place] [id number] 01/19/2025 R Hayes Kaelyn Acquired hypothyroid ism E03.9 and Cervicalgia M54.2 [facility] [address] [place] [id number] 01/19/2025 R Hayes Kaelyn [facility] [address] [place], [place] [id number] 01/27/[address] Crow[address] Hypertension, unspecified type I10 [facility] [address] [place] [id number] 01/27/2025 R Hayes Kaelyn [facility] [address] [place], [place] [id number] 02/03/2025 R Hayes Kaelyn [facility] [address] [place] [id number] 02/14/2025 R Hayes Kaelyn Hypertension, unspecified type I10 [facility] [address] [place] [id number] 02/14/2025 R Hayes Kaelyn [facility] [address] [place] [id number] 02/14/2025 R Hayes Kaelyn [facility] [address] [place] [id number] 02/15/2025 R Hayes Kaelyn Cervicalgia M54.2 [facility] [address] [place] [id number] 02/15/2025 R Hayes Kaelyn [facility] [address] [place] [id number] 02/22/2025 R Hayes Kaelyn Hypertension, unspecified type I10 [facility] [address] [place] [id number] 02/24/2025 R Hayes Kaelyn [facility] [address] [place] [id number] 02/27/2025 R Hayes Kaelyn [facility] [address] [place] [id number] 03/02/2025 R Hayes Kaelyn [facility] [address] [place] [id number] 03/13/2025 R Hayes [facility] [address] [facility] [address] [place] [id number] 03/24/2025 R Hayes Art [facility] [address] [facility] [address] [place] [id number] 03/28/2025 R Hayes Art [facility] [address] [facility] [address] [place] [id number] 06/20/2025 R Hayes Art Assessments Encounter Date Diagnosis (ICD Code) Assessment [...] Test. cardiac Routine 06/15/2025 Next Appt Details Provider Name:Kitty Polanco, 09/19/2025 10:00:00 AM, [address] [facility] [address] [facility], [address], [place], [place], [id number], Insurance Providers Payer Name Payer Address Payer Phone Subscriber Number Group Number Insured Name Patient Relationship to Insured Coverage Start Date Coverage End Date [employer] (MEDICAR E) [address] [address] [place] [phone] [id number] YULISSA YARBROUGH Self - patient is the [...] low back surgery 1989' ruptured umbilical hernia 1989' Left fifth digit on hand stitched back o n right cataract 2020 Hospitalization History Reason Date(Month/Year) [facility]- Hyperosmolar hyperglycemia 08/2019
== END 2025-06-27 23:59 | disposition home or self-care (01) ==
LOC: RT 10:03
PROVIDERS: PCP Family Medicine; Visit Provider Family Medicine
DX: R94.31 Abnormal electrocardiogram [ECG] [EKG] (principal); R07.9 Chest pain, unspecified
CPT/HCPCS: 93017; 93018